=== PATIENT | female | born 1960 | race Caucasian/White ===

== ENCOUNTER 2016-08-20 19:56 | Inpatient (IN) ==
[2016-08-20] MEDS ORDERED: Vancomycin 1,000 MG VIAL IVPB ONE (20:18)
[2016-08-20] MEDS ORDERED: 0.9 % Sodium Chloride 1,000 ML IVC ONE (20:18)
[2016-08-20] MEDS ORDERED: Piperacillin/Tazobactam 4.5 GM in D5% in Water (Mini-Bag+) 100 ML IVPB ONE (20:18)
--- NOTE | 2016-08-20 20:47 | Emergency Department Note ---
Disposition Clinical Impression: Lower extremity edema Qualifiers: Laterality: left Qualified Code(s): R60.0 - Localized edema Fever Qualifiers: Fever type: unspecified Qualified Code(s): R50.9 - Fever, unspecified Cellulitis Qualifiers: Site of cellulitis: extremity Site of cellulitis of extremity: lower extremity Laterality: left Qualified Code(s): L03.116 - Cellulitis of left lower limb Sepsis Qualifiers: Sepsis type: sepsis due to unspecified organism Qualified Code(s): A41.9 - Sepsis, unspecified organism Disposition: Admitted As Inpatient Condition: Good Time of Disposition: 23:00 Extremity Problem HPI - General Chief complaint: ED Extremity Problem,Nontraumatic Stated complaint: Left Leg Cellulitis Time Seen by Provider: 08/20/16 20:05 Source: patient Mode of arrival: ambulatory Limitations: no limitations Nursing Notes Reviewed: Yes Vital Signs Reviewed: Yes - History of Present Illness HPI Narrative: Patient presents emergency room for evaluation left lower extremity swelling cellulitis and warmth. Patient noticed this over the last 24 hours. Patient had an ingrown toenail that she cut out 2 days ago. Symptoms developed this morning she denied any other issues prior to except for her feeling like she had an illness. Denies any other medical issues her symptoms this time. Denies any other issues except for diabetes. She has been seen by podiatry several times in the past for similar issue. She has never had no redness or swelling or ligamentous before. Denies any history of deep venous thrombosis at this time. She has had intermittent shortness of breath secondary to feeling. Denies chest pain fevers chills headache or vision change. No nausea vomiting or diarrhea Pt Subjective Complaint: extremity pain, extremity swelling Onset (ago): hour(s) Consistency: constant Injury Location: left, lower extremity Pain Scale: 8 Quality: aching Radiation: distal Improves with: nothing Worsens with: range of motion, weight bearing, walking, palpation Associated symptoms: Reports: shortness of breath, fever, myalgias - Related Data Home Medications Medication Instructions Recorded Confirmed Allopurinol [Zyloprim] 300 mg PO QAM 12/04/14 06/20/16 Metformin [Glucophage] 500 mg PO DAILY 12/04/14 06/20/16 Multivitamin [Multivitamins] 1 cap PO QAM 12/04/14 06/20/16 Ropinirole HCl [Requip] 4 mg PO HS 12/04/14 06/20/16 Ropinirole [Requip] 3 mg PO BID 12/04/14 06/20/16 Metoprolol XL (24 HR) Succ [Toprol 50 mg PO HS 01/03/16 06/20/16 Xl] SitaGLIPtin [Januvia] 100 mg PO DAILY 01/03/16 06/20/16 Gabapentin [Neurontin] 300 mg PO TID 03/21/16 06/20/16 Previous Rx's Medication Instructions Recorded Calcium/D3/Mag Ox/[employer]/Victor Manuel/Zn 2 each PO DAILY #60 tablet 06/20/16 [Caltrate+D3 Plus Mineral Minis] Cholecalciferol (D-3) [Vitamin D] 1,000 unit PO DAILY #90 tablet 06/20/16 Anastrozole [Arimidex] 1 mg PO DAILY #90 tablet 08/01/16 Allergies Allergy/AdvReac Type Severity Reaction Status Date / Time lorazepam [From Ativan] AdvReac Intermediate Agitated Verified 12/10/14 17:59 All systems ED: reviewed and negative except as stated. Constitutional: Reports: chills, weakness. Denies: fever Cardiovascular: Denies: chest pain, palpitations, dyspnea on exertion, orthopnea Respiratory: Denies: dyspnea, wheezes, hemoptysis Gastrointestinal: Denies: nausea, vomiting, diarrhea Genitourinary: Denies: dysuria, frequency Musculoskeletal: Reports: myalgia. Denies: back pain, neck pain Past Medical History - Past Medical History Attestation: Yes The following information was validated with the patient. Source: patient Medical history: Reports: cancer, CHF, coronary artery disease, diabetes, hyperlipidemia, hypertension, renal disease, thyroid disease, other Surgical history: Reports: breast surgery, sinus surgery, other Psychiatric history: Reports: anxiety, depression - Social History Smoking Status: Never smoker Smokeless Tobacco Status: No Alcohol use: Reports: none Drug use: Reports: none Physical Exam - General Limitations: no limitations General appearance: alert - Extremities Exam Extremities exam: Present: normal inspection, full ROM, tenderness, normal capillary refill, pedal edema (Left lower extremity pedal edema redness swelling and warmth. Tenderness to the calf warmth is radiating up into the mid thigh) - Back Exam Back exam: Present: normal inspection - Neurological Exam Neurological exam: Present: alert, oriented X3, CN II-XII intact, normal gait - Psychiatric Psychiatric exam: Present: normal affect, normal mood Course Course Narrative: Patient seen and examined the time of arrival. See history of present illness. 56-year-old female presents with toenail infection that is turned into cellulitis and left lower extremity. She has never had enteritis before. She is a diabetic. She has significant swelling redness and warmth to the left lower extremity up to the mid thigh. She has good palpable DP and PT pulses on my evaluation of symmetric bilateral. She has normal sensation. Capillary refill is appropriate and bilateral lower extremities. Concern is noted on initial presentation for possible vascular insufficiency. Venous Doppler ordered at this time for evaluation. Labs including cultures CRP and ESR CBC and chemistry were this time. She will be started on IV vancomycin and Zosyn for coverage of pseudomonal infection as well as An MRSA. Patient is otherwise stable. Disposition and treatment course. Fever noted on vital signs along with borderline tachycardia. EKG and troponin were also ordered. Patient will most likely require admission to the hospital for further evaluation and management. Will discuss concern for pulmonary emboli once DVT study is completed. Clinical evaluation is more consistent with cellular presentation fever and generalized illness. We will continue to monitor as patient stabilized. Provided this time. She does have a history of CHF so 30 mg/kg fluid boluses will not be given at this time. 1 L aliquots of used for symptom control and heart rate. Blood pressure stable in no acute bleeds or signs of decompensation this time. - Reevaluation(s) Reevaluation #1: Patient has a negative Doppler of the left lower extremity. No sign of deep venous thrombosis. No elevated white count at this time. Electrolytes appear to be stable potassium is 3.3. No need for acute intervention this time. Kidney function is slightly elevated but not significantly elevated from patient 's previous history. ESR is 80 there is concern for bony involvement at this time. X-rays also be ordered for evaluation of bone deterioration. Patient has been provided with antibiotics. Admission process to be completed at that point. Time: 22:07 Reevaluation #2: Patient has what appears to be clinical cellulitis of lower extremity. DVT study is negative. Reviewed the patient's presentation symptoms medical intervention with the hospitalist Dr. Ledesma. No other recommendations at this time except for the patient be placed on telemetry bed. Patient is stable resting comfortably in the bed no distress. Disposition pending workup and treatment course. Patient will be admitted at this time for further evaluation as an inpatient by the hospitalist for treatment course. We will continue monitoring in the emergency room to admission is completed Time: 22:57 Vital Signs Temperature 101.9 F H 08/20/16 19:57 Pulse Rate 106 08/20/16 19:57 Respiratory Rate 14 08/20/16 19:57 Blood Pressure 120/78 08/20/16 19:57 O2 Sat by Pulse Oximetry 100 08/20/16 19:57 Temperature 101.9 F H 08/20/16 19:57 Pulse Rate 105 08/20/16 21:31 Respiratory Rate 18 08/20/16 21:31 Blood Pressure 121/75 08/20/16 21:31 O2 Sat by Pulse Oximetry 97 08/20/16 21:31 Oxygen Delivery Oxygen Delivery Room Air Extremity Problem, Nontraumati - MDM Narrative Medical decision making narrative: Left lower extremity cellulitis - Medical Records Medical records reviewed: Yes I reviewed the patient's medical records. - Lab Data Lab results reviewed: Yes I reviewed the patient's lab results. Result diagrams: 08/20/16 20:55 08/20/16 20:55 Lab Results 08/20/16 08/20/16 08/20/16 Range/Units 20:55 20:55 20:55 WBC 10.4 (4.3-11.1) K/mcL RBC 4.23 (3.82-4.97) M/mcL Hgb 11.9 (11.5-15.4) g/dL Hct 36.9 (35.3-44.9) % MCV 87.2 (83.0-100.0) fL MCH 28.1 (28.0-33.3) pg MCHC 32.2 (31.6-35.5) g/dL RDW 16.8 H (11.5-14.5) % Plt Count 168 (140-400) K/mcL MPV 11.0 (9.4-12.4) fL Immature Gran % 0.7 (0-4) % Seg Neutrophils % 90.8 % Lymphocytes % 4.9 % Monocytes % 2.9 % Eosinophils % 0.4 % Basophils % 0.3 % Neutrophils # 9.5 H (1.6-8.9) K/mcL Lymphocytes # 0.5 L (0.6-4.6) K/mcL Monocytes # 0.3 (0.0-1.3) K/mcL Eosinophils # 0.0 (0.0-0.6) K/mcL Basophils # 0.0 (0.0-0.2) K/mcL ESR 80 H (0-15) mm/hr PT 13.4 H (9.4-12.1) Seconds INR 1.2 Sodium (136-145) mEq/L Potassium (3.5-4.5) mEq/L Chloride (98-109) mEq/L Carbon Dioxide (19-29) mEq/L BUN (7-20) mg/dL Creatinine (0.57-1.11) mg/dL Est GFR ( Amer) (> 60) Est GFR (Non-Af Amer) (> 60) BUN/Creatinine Ratio (6-26) Glucose (70-99) mg/dL Calculated Osmolality (280-300) Lactic Acid (0.5-2.2) mmol/L Calcium (8.6-10.8) mg/dL Troponin I (0-0.03) ng/mL 08/20/16 08/20/16 08/20/16 Range/Units 20:55 20:55 20:55 WBC (4.3-11.1) K/mcL RBC (3.82-4.97) M/mcL Hgb (11.5-15.4) g/dL Hct (35.3-44.9) % MCV (83.0-100.0) fL MCH (28.0-33.3) pg MCHC (31.6-35.5) g/dL RDW (11.5-14.5) % Plt Count (140-400) K/mcL MPV (9.4-12.4) fL Immature Gran % (0-4) % Seg Neutrophils % % Lymphocytes % % Monocytes % % Eosinophils % % Basophils % % Neutrophils # (1.6-8.9) K/mcL Lymphocytes # (0.6-4.6) K/mcL Monocytes # (0.0-1.3) K/mcL Eosinophils # (0.0-0.6) K/mcL Basophils # (0.0-0.2) K/mcL ESR (0-15) mm/hr PT (9.4-12.1) Seconds INR Sodium 136 (136-145) mEq/L Potassium 3.3 L (3.5-4.5) mEq/L Chloride 98 (98-109) mEq/L Carbon Dioxide 24 (19-29) mEq/L BUN 35 H (7-20) mg/dL Creatinine 1.23 H (0.57-1.11) mg/dL Est GFR ( Amer) 55 L (> 60) Est GFR (Non-Af Amer) 46 L (> 60) BUN/Creatinine Ratio 28 H (6-26) Glucose 107 H (70-99) mg/dL Calculated Osmolality 290 (280-300) Lactic Acid 2.8 H (0.5-2.2) mmol/L Calcium 10.2 (8.6-10.8) mg/dL Troponin I 0.00 (0-0.03) ng/mL - Radiology Data Radiology results reviewed: Yes I reviewed the patient's radiology results. - EKG Data EKG attestation: Yes I reviewed and interpreted this EKG. EKG shows normal: sinus rhythm, axis, intervals, QRS complexes, ST-T waves Rate: tachycardia Rhythm: NSR [place]/QRS: normal Q waves: III, aVF When compared to previous EKG there are: no significant changes Interpretation: no acute changes, unchanged when compared to prior tracing (date ) Attestation Statement - Attestation Attestation: I, Adriano Duarte MD, personally evaluated this patient and discussed their management with the resident physician. I reviewed the resident's note and agree with the documented findings, medical decision making, and plan of care. 56-year-old female presents to the emergency department with a complaint of pain and swelling and redness of the left lower leg which started this morning and is getting progressively worse throughout the day. She also has developed a fever. No increased cough or chest pain or shortness of breath. No palpitations. Patient had an ingrown toenail on the left big toe which she pulled out 2 days ago. Pain and redness and swelling around the left big toe also. On examination patient is a well-developed obese female in no acute distress. She is alert and oriented 3. There is no cyanosis or diaphoresis. Breath sounds are clear and equal bilaterally. Heart regular with a mild tachycardia. Abdomen is soft and nontender with normal bowel sounds. Patient has a large area of cellulitis to the left lower leg with erythema and moderate swelling. Markedly tender to palpation. Neurovascular function intact distally. Labs reviewed. Chest x-ray negative. Sinus tachycardia with no acute changes on EKG. X-ray of the left foot was negative. The hospitalist, Dr. Ledesma, was consulted and accepted admission of the patient.
[2016-08-20] MEDS ORDERED: D5% in Water 250 ML ONE (20:58)
[2016-08-20 21:07] LABS: Basophils % 0.3 %; Eosinophils % 0.4 %; Hematocrit 36.9 % (35.3-44.9); Hemoglobin 11.9 g/dL (11.5-15.4); Immature Granulocytes % 0.7 % (0-4); Lymphocytes # 0.5 K/mcL (0.6-4.6); Lymphocytes % 4.9 %; Mean Corpuscular HGB Conc 32.2 g/dL (31.6-35.5); Mean Corpuscular Hemoglobin 28.1 pg (28.0-33.3); Mean Corpuscular Volume 87.2 fL (83.0-100.0); Monocytes # 0.3 K/mcL (0.0-1.3); Monocytes % 2.9 %; Neutrophils # 9.5 K/mcL (1.6-8.9); Platelet Count 168 K/mcL (140-400); Red Blood Count 4.23 M/mcL (3.82-4.97); Red Cell Distribution Width 16.8 % (11.5-14.5); Segmented Neutrophils % 90.8 %
[2016-08-20 21:13] LABS: INR 1.2; Prothrombin Time 13.4 Seconds (9.4-12.1)
[2016-08-20 21:21] LABS: Calcium 10.2 mg/dL (8.6-10.8); Potassium 3.3 mEq/L (3.5-4.5)
[2016-08-21] MEDS ORDERED: *HR* Dextrose 50 % in Water (Syg) 50 ML SYRINGE IVP PRN (00:01)
[2016-08-21] MEDS ORDERED: *HR* Promethazine 25 MG/ML VIAL IVP PRN (00:01)
[2016-08-21] MEDS ORDERED: D5% in Water 1,000 ML IVC PRN (00:01)
[2016-08-21] MEDS ORDERED: Naloxone 0.4 MG/ML INJ IVP PRN (00:01)
[2016-08-21] MEDS ORDERED: Dextrose Gel 15 GM PO PRN ×2 (00:01)
[2016-08-21] MEDS ORDERED: *HR* Morphine 2 MG/ML SYRINGE IVP PRN (00:01)
--- NOTE | 2016-08-21 00:15 | Internal Med History&Physical ---
Date of Encounter: 08/20/16 Time of Encounter: 23:45 Assessment and Plan (1) Sepsis affecting skin Current visit: Yes Status: Acute . (2) Breast cancer Current visit: Yes Status: Chronic . Qualifiers: Breast location: unspecified site of breast Patient sex: female Laterality: unspecified laterality Qualified Code(s): C50.919 - Malignant neoplasm of unspecified site of unspecified female breast (3) Vitamin D deficiency Current visit: Yes Status: Chronic . (4) Gastroparesis Current visit: Yes Status: Chronic . (5) CKD stage 3 secondary to diabetes Current visit: Yes Status: Chronic . (6) DM (diabetes mellitus), type 2 with renal complications Current visit: Yes Status: Chronic . Qualifiers: Diabetes mellitus complication detail: with chronic kidney disease Diabetes mellitus oysterman insulin use: without oysterman use Chronic kidney disease stage: stage 3 (moderate) Qualified Code(s): E11.22 - Type 2 diabetes mellitus with diabetic chronic kidney disease; N18.3 - Chronic kidney disease, stage 3 (moderate) (7) THU (obstructive sleep apnea) Current visit: Yes Status: Suspected . (8) Cervical stenosis of spinal canal Current visit: Yes Status: Chronic . (9) Cervical myelopathy Current visit: Yes Status: Chronic . (10) SIRS (systemic inflammatory response syndrome) Current visit: Yes Status: Acute . (11) Cellulitis of left lower extremity Current visit: Yes Status: Acute . (12) Morbid obesity with BMI of 40.0-44.9, adult Current visit: Yes Status: Chronic . (13) Morbid (severe) obesity with alveolar hypoventilation Current visit: Yes Status: Chronic . (14) Post-mastectomy lymphedema syndrome Current visit: Yes Status: Chronic . (15) Status post mastectomy Current visit: Yes Status: Chronic . Qualifiers: Laterality: left Qualified Code(s): Z90.12 - Acquired absence of left breast and nipple Internal Medicine - H&P: HPI Chief complaint: Pain swelling and redness of left lower extremity Admitted From: Emergency Dept Plans for Post Hospital Care: Home History of present illness: Ms. Aggarwal is a 56 year old female with history significant for type II DM, DM polyneuropathy/gastroparesis, RLS, hypertension, dyslipidemia, osteoarthritis, gout, osteopenia/vitamin D deficiency, breast Ca sp mastectomy/adjuvant chemotherapy, CKD III, postmastectomy lymphedema, venous insuff, depression/ anxiety, THU?OHS, CAD/diastolicCHF, CARROLL, morbid obesity, nonsmoker, etc.. The patient was admitted to the [facility] via the Emergency Department when she presents with complaints of left leg pain swelling and redness. She reports that she was approximately 24 hours prior to presentation. She had an ingrown toenail that she cut out approximately 2 days prior to that. He did not immediately since any problems however over time apparently of the information was inserted into the leg from the toe. The patient does have a remote history of MRSA infection of skin which was associated with an episode of sepsis. She is a alp-dpvkpvf-ykslrldxk diabetic and reports reasonable control of her diabetes. She had been seen in the past by podiatry for previous episodes of diabetic foot wounds ulcerations and infections. Malaise with myalgias and weakness is present. Subjective fevers and chills also noted but not prominent. Denies headache dizziness syncopal or presyncopal complaints. Has experiences shortness of air and some periodic lightheadedness. Pain has been progressively worsening over the last 24 hours. She rates this as a constant distal aching 8/10 severity. Pain is aggravated with motion of the leg, attempted weightbearing or walking and palpation of the wounds. Nothing seems to ease pain once it is established. Venous Doppler analysis performed in the ED and was negative for DVT. Vital signs noted a temperature of 101.9. Pulse 100-106 respirations 18 BP 120/78. O2 saturation 100% on room air. WBC 10.4 hemoglobin 11.9 platelets 168,000. Differential showed in increase in neutrophils. Sedimentation rate 80. PT 13.4 INR 1.2. EKG normal sinus rhythm. Tachycardic rate. No acute ischemic changes. Portable chest x-ray demonstrated no acute or active cardiopulmonary process. Preliminary findings were consistent with SIRS/sepsis criteria present at admission. Source of infection relates to rapidly progressive left lower extremity cellulitis. Patient is a diabetic of many years duration with associated somatic effects. Her current stability is uncertain. She is acutely toxic. The patient presents risk for further clinical decline and morbidity given her any concerns and comorbid conditions. Workup and treatments will proceed comprehensively. The patient was visited and interviewed and examined. Laboratory and radiographic data base was reviewed and considered. Plan of care has been discussed in detail with the patient. Questions addressed. Consultative opinions will be sought as clinical circumstances justify. Initial consultative opinion has been requested of podiatry. Hospital course will be dependent upon clinical findings, treatment response and potential consultative interventions. Given the patient's presenting concerns, past medical history, clinical findings and symptoms, she is admitted at this time to undergo further evaluation and disposition. Orders were written as per the computerized physician border guard system. Condition is serious. Prognosis is guarded. CODE STATUS is full. Past Med Surg Social Fam HX - Past Medical History Source: old records reviewed Medical history: arthritis (DDD/DJD lumbar spine. scoliosis.), cancer, cardiomyopathy (History of hantavirus cardiopulmonary syndrome.), CHF ( diastolic dysfx.), COPD (THU.?OHS. Chronic sinusitis. Oral candidiasis.), coronary artery disease, diabetes, GERD, GI bleed (h/o C difficile inf/colitis.) , hyperlipidemia, hypertension, kidney stones, liver disease (Hepatomegaly with splenomegaly.), malignancy (Breast Ca.), osteoporosis (Vitamin D Def.), renal disease (CKD III. Neurogenic bladder.), thyroid disease (h/o nontoxic goiter. h/ o thyrotoxicosis. Hypothyroidism.), syncope, venous stasis, other (RLS. Cervical spinal stenosis/myelopathy. Gout/hyperuricemia. h/o MRSA inf. DM periph neuropathy. ) Psychiatric history: anxiety, depression, other - Past Surgical History Surgical History: breast surgery, cancer surgery, sinus surgery, other - Social History Smoking Status: Never smoker Smokeless Tobacco Status: No Alcohol use: none Drug use: none Occupational status: retired Current living situation: Home, With Family Activity Level: Independent ambulation, Mostly sedentary Recent Out of Country Travel Within the Last 8 Weeks: No Exposure or Possible Exposure to Illness During Travel: No - Family History Father Adopted: No Family Member Ethnicity: Non- Living Status: Hx Family Cardiac Disorders: Yes (MT @ 50yrs and 75) Hx Family Respiratory Disorders: No Hx Family Cancer: No Hx Family GI Disorders: No Hx Family Endocrine Disorder: Yes (kidney disease, dialysis) Hx Family Neuromuscular Disorders: No Hx Family Neurologic Disorders: Yes (STROKE) Hx Family HEENT Disorders: No Hx Family Autoimmune Disorders: No Mother Living Status: Still Living Hx Family Cardiac Disorders: No Hx Family Respiratory Disorders: No Hx Family Cancer: Yes (skin cancer) Hx Family GI Disorders: No Hx Family Endocrine Disorder: No Hx Family Neuromuscular Disorders: No Sister Living Status: Still Living Hx Family Cardiac Disorders: No Hx Family Respiratory Disorders: No Hx Family Cancer: Yes (breast) Hx Family GI Disorders: No Hx Family Endocrine Disorder: Yes (diabetes) Hx Family Neuromuscular Disorders: No Hx Family Neurologic Disorders: No Hx Family HEENT Disorders: No Hx Family Autoimmune Disorders: Yes (lupus) Internal Medicine - H&P: Meds Allopurinol [Zyloprim] 300 mg PO QAM 12/04/14 [History] Metformin [Glucophage] 500 mg PO DAILY 12/04/14 [History] Multivitamin [Multivitamins] 1 cap PO QAM 12/04/14 [History] Ropinirole HCl [Requip] 4 mg PO HS 12/04/14 [History] Ropinirole [Requip] 3 mg PO BID 12/04/14 [History] Metoprolol XL (24 HR) Succ [Toprol Xl] 50 mg PO HS 01/03/16 [History] SitaGLIPtin [Januvia] 100 mg PO DAILY 01/03/16 [History] Gabapentin [Neurontin] 300 mg PO TID 03/21/16 [History] Calcium/D3/Mag Ox/[employer]ic/Victor Manuel/Zn [Caltrate+D3 Plus Mineral Minis] 2 each PO DAILY # 60 tablet 06/20/16 [Rx] Cholecalciferol (D-3) [Vitamin D] 1,000 unit PO DAILY #90 tablet 06/20/16 [Rx] Anastrozole [Arimidex] 1 mg PO DAILY #90 tablet 08/01/16 [Rx] Allergies lorazepam [From Ativan] Adverse Reaction (Intermediate, Verified 12/10/14 17:59) Agitated All Systems PM: A 10-system review of systems was performed and is negative for pertinent findings except as documented above in the HPI. - Constitutional Constitutional: as per HPI, chills, fever(s), malaise, weakness, no night sweats - EENT Eyes: as per HPI, no change in vision, no discharge, no pain, no photophobia Ears: as per HPI, no ear discharge, no ear pain, no tinnitus Nose, mouth and throat: as per HPI, no dysphagia, no nasal discharge, no neck pain, no sore throat - Breasts Breasts: as per HPI, other - Cardiovascular Cardiovascular ROS IM: as per HPI, lightheadedness, palpitations, no chest pain , no diaphoresis, no dyspnea, no syncope - Respiratory Respiratory: as per HPI, other, no cough, no dyspnea, no wheezing, no excessive phlegm production - Gastrointestinal Gastrointestinal: as per HPI, other, no abdominal pain, no diarrhea, no hematemesis, no hematochezia, no melena, no nausea, no vomiting - Genitourinary Genitourinary: as per HPI, no change in urinary stream, no dysuria, no flank pain, no hematuria Menstruation: as per HPI - Musculoskeletal Musculoskeletal ROS IM: as per HPI, arthralgias, back pain, limited range of motion, myalgias, other, no numbness, no tingling - Integumentary Integumentary IM: as per HPI, erythema, rash, other, no non-healing lesions, no skin ulcer, no unusual bruising - Neurological Neurological ROS: as per HPI, no confusion, no convulsions, no focal weakness, no numbness, no tingling, no tremor(s) - Psychiatric Psychiatric: as per HPI - Endocrine Endocrine IM: as per HPI - Hematologic/Lymphatic Hematologic/Lymphatic: as per HPI, no easy bruising - Allergic/Immunologic Allergic/Immunologic: as per HPI - Constitutional Vitals: Temp Pulse Resp BP Pulse Ox 100.0 F H 110 22 102/72 95 08/20/16 23:16 08/20/16 23:16 08/20/16 23:16 08/20/16 23:16 08/20/16 23:16 Vital Signs Temp Pulse Resp BP Pulse Ox 08/20/16 23:16 100.0 F H 110 22 102/72 95 08/20/16 21:31 105 18 121/75 97 08/20/16 21:13 103 18 97 08/20/16 19:57 101.9 F H 106 14 120/78 100 Intake and Output 08/20/16 08/20/16 08/21/16 15:59 23:59 07:59 Intake Total 250 / 250 Balance 250 / 250 Intake: IV Fluids 250 / 250 Dextrose 5% 250 ML As . 250 / 250 R[address] .[facility] Rx#: [id number] Other: Weight 104.326 kg General appearance: Present: cooperative, mild distress, A&O X 3, morbidly obese , answers questions appropriately - Head Head exam: Present: atraumatic, normal inspection, normocephalic - Eye Eye exam: Present: EOMI, PERRL, conjuntiva pink, sclera anicteric Pupils: Present: normal accommodation, PERRL - ENT ENT exam: Present: mucous membranes moist, normal external ear exam, normal oropharynx - Neck Neck exam general surgery: Present: full ROM, supple, trachea midline. Absent: lymphadenopathy, nuchal rigidity - Respiratory Respiratory exam: Present: decreased breath sounds, CTAB. Absent: accessory muscle use, rales, rhonchi, wheezes - Cardiovascular Cardiovascular exam: Present: distant heart sounds, RRR, +S1, +S2, tachycardia. Absent: diastolic murmur, gallop, rubs, systolic murmur - GI/Abdominal GI/Abdominal exam: Present: diminished bowel sounds, distended, soft, no peritoneal signs. Absent: tenderness - Extremities Exam Extremities exam: Present: calf tenderness (Left lower leg marked edema erythema and tenderness associated with extensive cellulitis.), full ROM, pedal edema, warm, radial pulses palpable and symetrical. Absent: cyanotic, normal inspection - Expanded Lower Extremities Exam Lower Leg exam: Present: ecchymosis, erythema, swelling, tenderness. Absent: normal inspection, palpable cord Ankle exam: Present: erythema, swelling, tenderness. Absent: normal inspection Foot/Toe exam: Present: erythema, swelling, tenderness. Absent: normal inspection Neuro vascular tendon exam: Present: no vascular compromise, significant pain with passive ROM of distal joint. Absent: extremity cold to touch, pulse deficit, sensory deficit Gait: Present: not tested/not observed - Neurological Exam Neurological exam: Present: alert, altered, CN II-XII intact, oriented X3, no focal deficits. Absent: pronater drift, facial droop, speech deficit - Psychiatric Psychiatric exam: Present: anxious, normal affect, normal mood - Skin Skin exam: Present: dry, erythema, intact, rash, warm Internal Med - H&P Results - Labs CBC & Chem 7: 08/20/16 20:55 08/21/16 04:28 Labs: Short CBC 08/20/16 Range/Units 20:55 WBC 10.4 (4.3-11.1) K/mcL Hgb 11.9 (11.5-15.4) g/dL Hct 36.9 (35.3-44.9) % Plt Count 168 (140-400) K/mcL Neutrophils # 9.5 H (1.6-8.9) K/mcL BMP 08/20/16 Range/Units 20:55 Sodium 136 (136-145) mEq/L Potassium 3.3 L (3.5-4.5) mEq/L Chloride 98 (98-109) mEq/L Carbon Dioxide 24 (19-29) mEq/L BUN 35 H (7-20) mg/dL Creatinine 1.23 H (0.57-1.11) mg/dL Glucose 107 H (70-99) mg/dL Calcium 10.2 (8.6-10.8) mg/dL Cardiac Enzymes 08/20/16 Range/Units 20:55 Troponin I 0.00 (0-0.03) ng/mL Abnormal lab results RDW 16.8 % (11.5-14.5) H 08/20/16 20:55 Neutrophils # 9.5 K/mcL (1.6-8.9) H 08/20/16 20:55 Lymphocytes # 0.5 K/mcL (0.6-4.6) L 08/20/16 20:55 ESR 80 mm/hr (0-15) H 08/20/16 20:55 PT 13.4 Seconds (9.4-12.1) H 08/20/16 20:55 Potassium 3.3 mEq/L (3.5-4.5) L 08/20/16 20:55 BUN 35 mg/dL (7-20) H 08/20/16 20:55 Creatinine 1.23 mg/dL (0.57-1.11) H 08/20/16 20:55 Est GFR ( Amer) 55 (> 60) L 08/20/16 20:55 Est GFR (Non-Af Amer) 46 (> 60) L 08/20/16 20:55 BUN/Creatinine Ratio 28 (6-26) H 08/20/16 20:55 Glucose 107 mg/dL (70-99) H 08/20/16 20:55 Lactic Acid 2.8 mmol/L (0.5-2.2) H 08/20/16 20:55 Laboratory Results WBC 10.4 K/mcL (4.3-11.1) 08/20/16 20:55 RBC 4.23 M/mcL (3.82-4.97) 08/20/16 20:55 Hgb 11.9 g/dL (11.5-15.4) 08/20/16 20:55 Hct 36.9 % (35.3-44.9) 08/20/16 20:55 MCV 87.2 fL (83.0-100.0) 08/20/16 20:55 MCH 28.1 pg (28.0-33.3) 08/20/16 20:55 MCHC 32.2 g/dL (31.6-35.5) 08/20/16 20:55 RDW 16.8 % (11.5-14.5) H 08/20/16 20:55 Plt Count 168 K/mcL (140-400) 08/20/16 20:55 MPV 11.0 fL (9.4-12.4) 08/20/16 20:55 Immature Gran % 0.7 % (0-4) 08/20/16 20:55 Seg Neutrophils % 90.8 % 08/20/16 20:55 Lymphocytes % 4.9 % 08/20/16 20:55 Monocytes % 2.9 % 08/20/16 20:55 Eosinophils % 0.4 % 08/20/16 20:55 Basophils % 0.3 % 08/20/16 20:55 Neutrophils # 9.5 K/mcL (1.6-8.9) H 08/20/16 20:55 Lymphocytes # 0.5 K/mcL (0.6-4.6) L 08/20/16 20:55 Monocytes # 0.3 K/mcL (0.0-1.3) 08/20/16 20:55 Eosinophils # 0.0 K/mcL (0.0-0.6) 08/20/16 20:55 Basophils # 0.0 K/mcL (0.0-0.2) 08/20/16 20:55 ESR 80 mm/hr (0-15) H 08/20/16 20:55 PT 13.4 Seconds (9.4-12.1) H 08/20/16 20:55 INR 1.2 08/20/16 20:55 Sodium 136 mEq/L (136-145) 08/20/16 20:55 Potassium 3.3 mEq/L (3.5-4.5) L 08/20/16 20:55 Chloride 98 mEq/L (98-109) 08/20/16 20:55 Carbon Dioxide 24 mEq/L (19-29) 08/20/16 20:55 BUN 35 mg/dL (7-20) H 08/20/16 20:55 Creatinine 1.23 mg/dL (0.57-1.11) H 08/20/16 20:55 Est GFR ( Amer) 55 (> 60) L 08/20/16 20:55 Est GFR (Non-Af Amer) 46 (> 60) L 08/20/16 20:55 BUN/Creatinine Ratio 28 (6-26) H 08/20/16 20:55 Glucose 107 mg/dL (70-99) H 08/20/16 20:55 Calculated Osmolality 290 (280-300) 08/20/16 20:55 Lactic Acid 2.8 mmol/L (0.5-2.2) H 08/20/16 20:55 Calcium 10.2 mg/dL (8.6-10.8) 08/20/16 20:55 Troponin I 0.00 ng/mL (0-0.03) 08/20/16 20:55 Impressions Chest X-Ray 08/20/16 20:19 IMPRESSION: No acute cardiopulmonary process identified. D/ / Sean Mullins MD / Sean Mullins MD Interpreting Provider: Sean Mullins MD Foot X-Ray 08/20/16 22:06 IMPRESSION: No radiographic evidence of osteomyelitis. If there is clinical concern for bone infection, recommend MRI or bone scan for further evaluation. D/ / Tristan Lopez MD / Tristan Lopez MD Interpreting Provider: Tristan Lopez MD
[2016-08-21] MEDS: Melatonin 3 MG TABLET PO SCH ×2 (00:44→21:22)
[2016-08-21] MEDS: rOPINIRole 1 MG TABLET PO SCH ×2 (00:45→21:22)
[2016-08-21] MEDS: 0.9 % Sodium Chloride 1,000 ML IVC SCH ×2 (00:45→22:28)
[2016-08-21] MEDS: Insulin DETEMIR 100 UNIT/ML X5UNITS SQ SCH ×2 (00:53→21:22)
[2016-08-21] MEDS ORDERED: Vancomycin 1,500 MG in D5% in Water 250 ML IVPB SCH (01:00)
[2016-08-21] MEDS ORDERED: Potassium Chloride Elixir 20 MEQ/15 ML UDC PO STA (03:02)
[2016-08-21 04:39] LABS: VBG HCO3 23.6 mEq/L (21-27); VBG PH 7.45 pH Units (7.32-7.42)
[2016-08-21 04:54] LABS: Alanine Aminotransferase 25 Units/L (0-55); Albumin 2.9 g/dL (3.5-5.0); Albumin/Globulin Ratio 0.9 (1.1-2.2); Alkaline Phosphatase 57 Units/L (38-126); Aspartate Amino Transferase 19 Units/L (5-34); BUN/Creatinine Ratio 28 (6-26); Bilirubin,Total 0.7 mg/dL (0.2-1.2); Blood Urea Nitrogen 29 mg/dL (7-20); Calcium 9.1 mg/dL (8.6-10.8); Carbon Dioxide 23 mEq/L (19-29); Chloride 104 mEq/L (98-109); Globulin 3.2 g/dL (2.4-3.5); Glucose 134 mg/dL (70-99); Hemoglobin A1C 5.1 %; Osmolality,Calculated 290 (280-300); Potassium 3.2 mEq/L (3.5-4.5); Sodium 136 mEq/L (136-145); Total Protein 6.1 g/dL (6.0-8.3); eGFR For African Americans > 60 (> 60); eGFR For Non-African Americans 56 (> 60)
[2016-08-21 05:01] LABS: Magnesium 1.6 mg/dL (1.6-2.6); Phosphorous 2.8 mg/dL (2.3-4.7)
[2016-08-21] MEDS: *HR* Enoxaparin 40 MG/0.4 ML SYRINGE SQ SCH (05:45)
[2016-08-21 05:48] LABS: Thyroid Stimulating Hormone 1.415 mcIU/mL (0.350-4.840)
[2016-08-21] MEDS: Insulin LISPRO 300 UNITS/3 ML VIAL SQ SCH ×4 (07:30→21:17)
[2016-08-21] MEDS: Piperacillin/Tazobactam 3.375 GM in D5% in Water (Mini-Bag+) 100 ML IVPB SCH ×2 (07:51→16:18)
[2016-08-21] MEDS: Anastrozole 1 MG TABLET PO SCH (07:53)
[2016-08-21] MEDS: Gabapentin 300 MG CAPSULE PO SCH ×3 (07:54→21:22)
--- NOTE | 2016-08-21 10:38 | Internal Med Progress Note ---
Date of Encounter: 08/21/16 Time of Encounter: 09:45 - Assessment and plan (1) Cellulitis of left lower extremity Current Visit: Yes Status: Acute Assessment and plan: Continue current antibiotics. Patient is responding well. Left leg elevation. Moderate risk for complications. (2) CKD stage 3 secondary to diabetes Current Visit: Yes Status: Chronic Assessment and plan: Renal function improved. We will continue to follow. Dose antibiotics recently. (3) DM (diabetes mellitus), type 2 with renal complications Current Visit: Yes Status: Chronic Assessment and plan: Blood sugars are well-controlled. Continue to monitor and continue current insulin regimen. Qualifiers: Diabetes mellitus complication detail: with chronic kidney disease Diabetes mellitus retirement insulin use: without retirement use Chronic kidney disease stage: stage 3 (moderate) Qualified Code(s): E11.22 - Type 2 diabetes mellitus with diabetic chronic kidney disease; N18.3 - Chronic kidney disease, stage 3 (moderate) (4) Sepsis affecting skin Current Visit: Yes Status: Acute Assessment and plan: Improving - Subjective Interval history: Patient feels just about the same as yesterday. However the swelling and redness in her left leg is slightly improved. No nausea or vomiting. No adverse reaction to antibiotics. No fever or chills or night sweats reported overnight. - Constitutional Vitals: Temp Pulse Resp BP Pulse Ox 98.5 F 70 16 88/48 97 08/21/16 07:39 08/21/16 07:39 08/21/16 07:39 08/21/16 07:39 08/21/16 07:39 General appearance: Present: cooperative, mild distress, A&O X 3, morbidly obese , answers questions appropriately - Respiratory Respiratory exam: Present: CTAB. Absent: accessory muscle use, rales, rhonchi, wheezes - Cardiovascular Cardiovascular exam: Present: RRR, +S1, +S2. Absent: diastolic murmur, gallop, rubs, systolic murmur - GI/Abdominal GI/Abdominal exam: Present: normal bowel sounds, soft, no peritoneal signs. Absent: distended, tenderness - Extremities Exam Extremities exam: Present: warm, radial pulses palpable and symetrical. Absent : calf tenderness, cyanotic, pedal edema Additional comments: Erythema and swelling involving the left lower leg circumferentially. This appears to be slightly improved based on patient's history - Neurological Exam Neurological exam: Present: alert, oriented X3, no focal deficits. Absent: facial droop, speech deficit - Skin Skin exam: Present: dry, intact Internal Medicine: Result - Labs CBC & Chem 7: 08/20/16 20:55 08/21/16 04:28 Labs: BMP 08/21/16 04:28 Sodium 136 Potassium 3.2 L Chloride 104 Carbon Dioxide 23 BUN 29 H Creatinine 1.02 Glucose 134 H Calcium 9.1 Liver Function 08/21/16 Range/Units 04:28 Total Bilirubin 0.7 (0.2-1.2) mg/dL AST 19 (5-34) Units/L ALT 25 (0-55) Units/L Alkaline Phosphatase 57 (38-126) Units/L Albumin 2.9 L (3.5-5.0) g/dL - ABG Interpretation ABG results: PT/INR, D-dimer PT 13.4 Seconds (9.4-12.1) H 08/20/16 20:55 Consult Discharge Plan - Plan Referrals: Ace Knowles DO [Primary Care Provider] - - Attending Attestation This document has been at least partially created by Jumio recognition technology by Dr. Ulloa. Errors in grammar, wording or other phrases may exist. If errors are found after the documentation is signed, they will be addressed individually in the addendum section of this document when appropriate.
[2016-08-21] MEDS: Vancomycin 1,500 MG in D5% in Water 250 ML IVPB SCH (11:32)
[2016-08-21 13:14] LABS: Bilirubin,Urine Negative (Negative); Blood,Urine Negative (Negative); Clarity,Urine Clear (Clear); Color,Urine Yellow (Yellow); Glucose,Urine (UA) Normal (Normal); Ketones,Urine Negative (Negative); Leukocyte Esterase,Urine Small (Negative); Nitrite,Urine Negative (Negative); Protein,Urine 30 mg/dL (Neg-Trace); Specific Gravity,Urine 1.029 (1.010-1.025); Urobilinogen,Urine Normal (Normal)
[2016-08-21 13:17] LABS: Bacteria,Urine None Seen per hpf (None-Few); Hyaline Casts,Urine None Seen per lpf (None-Few); Squamous Epithelial Cell,Urine Many per lpf (None-Few)
[2016-08-21] MEDS ORDERED: Vancomycin 1,750 MG in D5% in Water 500 ML IVPB SCH (14:00)
--- NOTE | 2016-08-21 14:18 | Venous Imaging Report ---
LE Venous Duplex Patient Name:Jailene Aggarwal Order Number:[id number] Procedure Date:08/20/2016 Date:1960ge:56 yrs Gender:Female Location:[facility] ED Room #: ER 4 Event Marketing Specialist:Juliet Liz RDCS, AMER[place] Referring MD:Dale Grider DO senior merchandiser:Minh Knowles DO Reading MD:Tom Schofield MD Primary Indications:Swelling, Redness Secondary Indications: Risk Factors Yes/No Hx of Chemotherapy Yes Impressions: Normal left lower extremity deep and superficial venous exam. Recommendations: Test completed on 08/20/2016 at 9:57:33 pm. Critical findings reported to Dr. Grider in person at 9:57:35 pm on 08/20/2016 by Juliet Liz RDCS, RVT. Lower Extremity Venous Duplex Side Vein Compress Spontaneous Flow Augment Diameter (cm) Depth (cm) Left Distal Iliac Normal Yes Phasic Yes Left Common Femoral Normal Yes Phasic Yes Left Superficial Femoral Normal Yes Phasic Yes Left Popliteal Normal Yes Phasic Yes Left Posterior Tibial Normal Yes Phasic Yes Left Peroneal Normal Yes Phasic Yes Left Great [place]aphenous Normal Yes Phasic Yes Left Lesser Saphenous Normal Yes Phasic Yes Updated by Tom Schofield MD on 08/21/2016 2:11:27 PM electronically signed on 08/21/2016 2:12:11 PM with status of Final
[2016-08-21] MEDS: *HR* OxyCODONE Immed Rel 5 MG TABLET PO PRN (16:16)
[2016-08-21] MEDS: Metoprolol XL (24 HR) Succ 50 MG TAB.ER.24H PO SCH (21:22)
[2016-08-22] MEDS: Vancomycin 1,500 MG in D5% in Water 250 ML IVPB SCH ×2 (00:24→11:40)
[2016-08-22] MEDS: Piperacillin/Tazobactam 3.375 GM in D5% in Water (Mini-Bag+) 100 ML IVPB SCH ×3 (00:25→16:25)
[2016-08-22] MEDS: *HR* Enoxaparin 40 MG/0.4 ML SYRINGE SQ SCH (05:35)
--- NOTE | 2016-08-22 06:35 | Electrocardiograph Report ---
[address] [place] [address] Test Date: 2016-08-20 Pat Name: Jailene Aggarwal Department: 104 Room: 3A24 Gender: F [employer] Consultant: [facility] : 1960 Requested By: Dale Grider Order Number: [id number] Reading MD: Tha Nassar MD Measurements Intervals [place] Rate: 102 P: 35 [place]: 170 QRS: -14 QRSD: 93 T: 81 QT: 322 QTc: 381 Interpretive Statements SINUS TACHYCARDIA LEFT ATRIAL ENLARGEMENT LEFT VENTRICULAR HYPERTROPHY AND ST-T CHANGE POSSIBLE ANTERIOR MYOCARDIAL INFARCTION, OF INDETERMINATE AGE INFERIOR MYOCARDIAL INFARCTION, PROBABLY OLD Electronically Signed On 08-22-2016 6:33:01 EDT by Tha Nassar MD
[2016-08-22] MEDS: Insulin LISPRO 300 UNITS/3 ML VIAL SQ SCH ×4 (08:03→20:44)
[2016-08-22] MEDS: Anastrozole 1 MG TABLET PO SCH (08:06)
[2016-08-22] MEDS: Gabapentin 300 MG CAPSULE PO SCH ×3 (08:06→20:37)
[2016-08-22] MEDS: Acetaminophen 325 MG TABLET PO PRN ×2 (08:07→16:24)
[2016-08-22] MEDS ORDERED: Aminoglycoside Consult 1 EACH MC ONE (08:37)
[2016-08-22 09:53] LABS: Basophils % 0.4 %; Eosinophils # 0.1 K/mcL (0.0-0.6); Eosinophils % 1.3 %; Hematocrit 29.4 % (35.3-44.9); Immature Granulocytes % 0.6 % (0-4); Lymphocytes # 0.8 K/mcL (0.6-4.6); Lymphocytes % 11.6 %; Mean Corpuscular HGB Conc 32.7 g/dL (31.6-35.5); Mean Corpuscular Hemoglobin 28.8 pg (28.0-33.3); Mean Corpuscular Volume 88.3 fL (83.0-100.0); Mean Platelet Volume 10.5 fL (9.4-12.4); Monocytes # 0.4 K/mcL (0.0-1.3); Monocytes % 6.4 %; Neutrophils # 5.5 K/mcL (1.6-8.9); Platelet Count 128 K/mcL (140-400); Red Blood Count 3.33 M/mcL (3.82-4.97); Red Cell Distribution Width 16.8 % (11.5-14.5); Segmented Neutrophils % 79.7 %
[2016-08-22 09:54] LABS: Hemoglobin 9.6 g/dL (11.5-15.4)
[2016-08-22 10:33] LABS: BUN/Creatinine Ratio 19 (6-26); Blood Urea Nitrogen 15 mg/dL (7-20); Calcium 8.8 mg/dL (8.6-10.8); Carbon Dioxide 22 mEq/L (19-29); Chloride 108 mEq/L (98-109); Glucose 119 mg/dL (70-99); Osmolality,Calculated 284 (280-300); Sodium 136 mEq/L (136-145); eGFR For African Americans > 60 (> 60); eGFR For Non-African Americans > 60 (> 60)
--- NOTE | 2016-08-22 18:37 | Internal Med Progress Note ---
Date of Encounter: 08/22/16 Time of Encounter: 15:30 - Assessment and plan (1) Sepsis Current Visit: Yes Status: Acute Assessment and plan: Secondary to left lower extremity cellulitis. Patient presented with fever, tachycardia, source of infection. Continue IV antibiotics. Improving fever. Qualifiers: Sepsis type: sepsis due to unspecified organism Qualified Code(s): A41.9 - Sepsis, unspecified organism (2) Cellulitis Current Visit: Yes Status: Acute Assessment and plan: Left lower extremity cellulitis, likely secondary to infected/ingrown left great toe nail. Blood and urine cultures remain negative so far. Will change antibiotics to IV doxycycline and Unasyn. Left leg elevation and supportive care. Venous Doppler of left leg shows no evidence of DVT. Qualifiers: Site of cellulitis: extremity Site of cellulitis of extremity: lower extremity Laterality: left Qualified Code(s): L03.116 - Cellulitis of left lower limb (3) CKD stage 3 secondary to diabetes Current Visit: Yes Status: Chronic Assessment and plan: Serum creatinine at baseline. Avoid nephrotoxic agents and dose medications according to current creatinine clearance. (4) DM (diabetes mellitus), type 2 with renal complications Current Visit: Yes Status: Chronic Assessment and plan: Continue Accu-Chek blood glucose monitoring with sliding scale insulin. Diabetic diet. 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 Slightly improved left leg swelling. Had low-grade fever last night. - Constitutional Vitals: Temp Pulse Resp BP Pulse Ox 98.0 F 70 16 111/71 99 08/22/16 16:00 08/22/16 16:00 08/22/16 16:00 08/22/16 16:00 08/22/16 16:00 General appearance: Present: cooperative, A&O X 3, morbidly obese, answers questions appropriately - Respiratory Respiratory exam: Present: CTAB. Absent: accessory muscle use, rales, rhonchi, wheezes - Cardiovascular Cardiovascular exam: Present: RRR, +S1, +S2. Absent: diastolic murmur, gallop, rubs, systolic murmur - GI/Abdominal GI/Abdominal exam: Present: normal bowel sounds, soft, no peritoneal signs. Absent: distended, tenderness - Extremities Exam Extremities exam: Present: full ROM, warm, radial pulses palpable and symetrical. Absent: calf tenderness, cyanotic, pedal edema Additional comments: Left leg with diffuse edema, intense blanchable erythema over anterolateral and anteromedial leg, slightly tender, warm, no open ulcers. Internal Medicine: Result - Labs CBC & Chem 7: 08/22/16 09:45 08/22/16 09:45 Labs: Short CBC 08/22/16 Range/Units 09:45 WBC 6.9 (4.3-11.1) K/mcL Hgb 9.6 L D (11.5-15.4) g/dL Hct 29.4 L (35.3-44.9) % Plt Count 128 L (140-400) K/mcL Neutrophils # 5.5 (1.6-8.9) K/mcL BMP 08/22/16 09:45 Sodium 136 Potassium 4.0 Chloride 108 Carbon Dioxide 22 BUN 15 D Creatinine 0.80 Glucose 119 H Calcium 8.8 - ABG Interpretation ABG results: PT/INR, D-dimer PT 13.4 Seconds (9.4-12.1) H 08/20/16 20:55 Consult Discharge Plan - Plan Referrals: Ace Knowles DO [Primary Care Provider] -
[2016-08-22] MEDS: Insulin DETEMIR 100 UNIT/ML X5UNITS SQ SCH (20:37)
[2016-08-22] MEDS: rOPINIRole 1 MG TABLET PO SCH (20:37)
[2016-08-22] MEDS: Metoprolol XL (24 HR) Succ 50 MG TAB.ER.24H PO SCH (20:37)
[2016-08-22] MEDS: Melatonin 3 MG TABLET PO SCH (20:37)
[2016-08-22] MEDS: *HR* OxyCODONE Immed Rel 5 MG TABLET PO PRN (23:28)
[2016-08-22] MEDS: Ampicillin/Sulbactam 3,000 MG in 0.9 % Sodium Chloride Mini Bag 100 ML IVPB SCH (23:28)
[2016-08-23] MEDS: Doxycycline 100 MG in 0.9 % Sodium Chloride Mini Bag 100 ML IVPB SCH ×2 (05:17→18:34)
[2016-08-23] MEDS: Ampicillin/Sulbactam 3,000 MG in 0.9 % Sodium Chloride Mini Bag 100 ML IVPB SCH ×3 (06:32→18:02)
[2016-08-23] MEDS: *HR* Enoxaparin 40 MG/0.4 ML SYRINGE SQ SCH (06:32)
[2016-08-23] MEDS: Insulin LISPRO 300 UNITS/3 ML VIAL SQ SCH ×4 (08:06→20:41)
[2016-08-23] MEDS: Gabapentin 300 MG CAPSULE PO SCH ×3 (08:10→20:40)
[2016-08-23] MEDS: Anastrozole 1 MG TABLET PO SCH (08:10)
--- NOTE | 2016-08-23 17:30 | Internal Med Progress Note ---
Date of Encounter: 08/23/16 Time of Encounter: 13:00 - Assessment and plan (1) Sepsis Current Visit: Yes Status: Acute Assessment and plan: Secondary to left lower extremity cellulitis. Patient presented with fever, tachycardia, source of infection. Improved fever. Continue IV antibiotics. Qualifiers: Sepsis type: sepsis due to unspecified organism Qualified Code(s): A41.9 - Sepsis, unspecified organism (2) Cellulitis Current Visit: Yes Status: Acute Assessment and plan: Left lower extremity cellulitis, likely secondary to infected/ingrown left great toe nail. Blood and urine cultures remain negative so far. Continue IV doxycycline and Unasyn. Anticipate discharge in a.m. if remains stable. Left leg elevation and supportive care. Venous Doppler of left leg shows no evidence of DVT. Qualifiers: Site of cellulitis: extremity Site of cellulitis of extremity: lower extremity Laterality: left Qualified Code(s): L03.116 - Cellulitis of left lower limb (3) CKD stage 3 secondary to diabetes Current Visit: Yes Status: Chronic (4) DM (diabetes mellitus), type 2 with renal complications Current Visit: Yes Status: Chronic Assessment and plan: Continue Accu-Chek blood glucose monitoring with sliding scale insulin. Diabetic diet. 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 Improving left leg pain and swelling, redness has improved. No nausea, vomiting or shortness of breath. - Constitutional Vitals: Temp Pulse Resp BP Pulse Ox 97.6 F 73 20 125/80 98 08/23/16 14:13 08/23/16 14:13 08/23/16 14:13 08/23/16 14:13 08/23/16 14:13 General appearance: Present: cooperative, A&O X 3, morbidly obese, answers questions appropriately - Respiratory Respiratory exam: Present: CTAB. Absent: accessory muscle use, rales, rhonchi, wheezes - Cardiovascular Cardiovascular exam: Present: RRR, +S1, +S2. Absent: diastolic murmur, gallop, rubs, systolic murmur - Extremities Exam Extremities exam: Present: pedal edema (Left lower extremity), warm, radial pulses palpable and symetrical. Absent: calf tenderness, cyanotic Additional comments: Left anterior leg with improving erythema, now dusky. Slightly improved edema and much improved tenderness and warmth. Internal Medicine: Result - Labs CBC & Chem 7: 08/22/16 09:45 08/22/16 09:45 - ABG Interpretation ABG results: PT/INR, D-dimer PT 13.4 Seconds (9.4-12.1) H 08/20/16 20:55 Consult Discharge Plan - Plan Referrals: Ace Knowles DO [Primary Care Provider] -
[2016-08-23] MEDS: rOPINIRole 1 MG TABLET PO SCH (20:40)
[2016-08-23] MEDS: Metoprolol XL (24 HR) Succ 50 MG TAB.ER.24H PO SCH (20:40)
[2016-08-23] MEDS: Insulin DETEMIR 100 UNIT/ML X5UNITS SQ SCH (20:40)
[2016-08-23] MEDS: Melatonin 3 MG TABLET PO SCH (20:40)
[2016-08-24] MEDS: Ampicillin/Sulbactam 3,000 MG in 0.9 % Sodium Chloride Mini Bag 100 ML IVPB SCH ×3 (00:01→12:39)
[2016-08-24] MEDS: Doxycycline 100 MG in 0.9 % Sodium Chloride Mini Bag 100 ML IVPB SCH (05:12)
[2016-08-24] MEDS: *HR* Enoxaparin 40 MG/0.4 ML SYRINGE SQ SCH (05:12)
[2016-08-24] MEDS: Insulin LISPRO 300 UNITS/3 ML VIAL SQ SCH ×2 (07:47→12:22)
[2016-08-24] MEDS: Anastrozole 1 MG TABLET PO SCH (07:49)
[2016-08-24] MEDS: Gabapentin 300 MG CAPSULE PO SCH (07:49)
[2016-08-24 11:01] VITALS: BP 143/86
--- NOTE | 2016-08-24 12:48 | Discharge Summary ---
Date of Encounter: 08/24/16 Time of Encounter: 12:45 - Discharge Diagnosis (1) Sepsis Priority: Primary Status: Acute Qualifiers: Sepsis type: sepsis due to unspecified organism Qualified Code(s): A41.9 - Sepsis, unspecified organism (2) Cellulitis Priority: Primary Status: Acute Qualifiers: Site of cellulitis: extremity Site of cellulitis of extremity: lower extremity Laterality: left Qualified Code(s): L03.116 - Cellulitis of left lower limb (3) CKD stage 3 secondary to diabetes Priority: Secondary Status: Chronic (4) DM (diabetes mellitus), type 2 with renal complications Priority: Secondary Status: Chronic Qualifiers: Diabetes mellitus complication detail: with chronic kidney disease 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 insulin 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: without correction use Chronic kidney disease stage: stage 3 (moderate) Qualified Code(s): E11.22 - Type 2 diabetes mellitus with diabetic chronic kidney disease; N18.3 - Chronic kidney disease, stage 3 (moderate) (5) THU (obstructive sleep apnea) Priority: Secondary Status: Suspected - Discharge Medications Prescriptions: Amoxicillin/Clavulanate [Augmentin] 500 mg PO BIDWM #14 tablet Doxycycline 100 mg PO BID #14 capsule Home Medications: Allopurinol [Zyloprim] 300 mg PO QAM 12/04/14 [History] Metformin [Glucophage] 1,000 mg PO BID 12/04/14 [History] Multivitamin [Multivitamins] 1 cap PO QAM 12/04/14 [History] Ropinirole HCl [Requip] 4 mg PO HS 12/04/14 [History] Ropinirole [Requip] 3 mg PO BID 12/04/14 [History] Metoprolol XL (24 HR) Succ [Toprol Xl] 50 mg PO HS 01/03/16 [History] SitaGLIPtin [Januvia] 100 mg PO DAILY 01/03/16 [History] Gabapentin [Neurontin] 300 mg PO TID 03/21/16 [History] Calcium/D3/Mag Ox/[employer]er [employer]ies/[place]/Zn [Caltrate+D3 Plus Mineral Minis] 2 each PO DAILY # 60 tablet 06/20/16 [Rx] Cholecalciferol (D-3) [Vitamin D] 1,000 unit PO DAILY #90 tablet 06/20/16 [Rx] Anastrozole [Arimidex] 1 mg PO DAILY #90 tablet 08/01/16 [Rx] Aspirin 81 mg PO DAILY 08/21/16 [History] Ferrous Sulfate [Iron] 325 mg PO DAILY 08/21/16 [History] Furosemide [Lasix] 40 mg PO DAILY 08/21/16 [History] Amoxicillin/Clavulanate [Augmentin] 500 mg PO BIDWM #14 tablet 08/24/16 [Rx] Doxycycline 100 mg PO BID #14 capsule 08/24/16 [Rx] Allergies/Adverse Reactions: Allergies lorazepam [From Ativan] Adverse Reaction (Intermediate, Verified 12/10/14 17:59) Agitated Date of admission: 08/21/16 13:27 Primary care physician: Ace Knowles Discharging clinician: Denise Wise Anticipated date of discharge: 08/24/16 - Patient Status Disposition: Home, Self-Care Condition: Good Functional capacity at discharge: independent ambulation Overall status at discharge: patient is progressing back to baseline - Discharge Instructions Instructions: Cellulitis (DC), Cellulitis (GEN) Follow Up With: Tenisha Landers CNP [Advanced Practice Nurse] - 08/28/16 1:30 pm - Diet and Activity Activity: resume usual activities as tolerated Diet: diabetic diet, low fat, low cholesterol, low salt diet Hospital course: Ms. Aggarwal is a 56 year old female admitted with left lower extremity redness and swelling. Patient was noted to have cellulitis with significant edema, erythema and tenderness in left leg. Venous Doppler of left lower extremity showed no evidence of acute DVT. She also presented with fever and tachycardia , which gradually improved with IV hydration and antibiotics. Blood cultures remain negative. Patient was started on IV vancomycin and Zosyn initially, which was later changed to IV doxycycline and Unasyn with significant improvement in left leg redness and pain and swelling. Patient is doing well today and is medically stable for discharge with oral antibiotics, she is encouraged to follow up with her primary care provider and she verbalized understanding. - Time Spent with Patient Total time spent providing and/or coordinating discharge services: Greater than 30 minutes (45 min) - Constitutional Vitals: Temp Pulse Resp BP Pulse Ox 98.1 F 61 16 143/86 100 08/24/16 10:54 08/24/16 10:54 08/24/16 10:54 08/24/16 10:54 08/24/16 10:54 General appearance: Present: cooperative, A&O X 3, morbidly obese, answers questions appropriately - Cardiovascular Cardiovascular exam: Present: RRR, +S1, +S2. Absent: diastolic murmur, gallop, rubs, systolic murmur - Extremities Exam Extremities exam: Present: pedal edema (improving left LE edema), warm, radial pulses palpable and symetrical. Absent: calf tenderness, cyanotic Additional comments: resolved warmth, tenderness and erythema over left leg; improving edema;
== END 2016-08-24 14:38 | disposition home or self-care (01) | DRG 872 ==
LOC: EMEROO 19:56 → 3ANU 19:56 → SUATTDRO 23:03 → 3ANU 08-21 00:19 → SUATTDRO 08-21 13:27
PROVIDERS: ADMIT Internal Medicine; ATTEND Internal Medicine

== ENCOUNTER 2017-02-09 17:11 | Inpatient (IN) ==
[2017-02-09] MEDS ORDERED: Piperacillin/Tazobactam 3.375 GM in D5% in Water (Mini-Bag+) 100 ML IVPB ONE (17:48)
[2017-02-09] MEDS ORDERED: Vancomycin 1,750 MG in D5% in Water 250 ML IVPB ONE (17:48)
--- NOTE | 2017-02-09 17:48 | Emergency Department Note ---
Disposition Clinical Impression: Sepsis, Cellulitis of left lower extremity, Lactic acidosis Disposition: Admitted As Inpatient Condition: Undetermined General Adult HPI - General Chief complaint: ED Fever Stated complaint: Fever Time Seen by Provider: 02/09/17 17:40 Source: patient, family Limitations: no limitations - History of Present Illness Pain Scale: 9 - Related Data Home Medications Medication Instructions Recorded Confirmed Metformin [Glucophage] 1,000 mg PO BID 12/04/14 02/09/17 Multivitamin [Multivitamins] 1 cap PO QAM 12/04/14 02/09/17 Ropinirole [Requip] 3 mg PO BID 12/04/14 02/09/17 Metoprolol XL (24 HR) Succ [Toprol 50 mg PO HS 01/03/16 02/09/17 Xl] SitaGLIPtin [Januvia] 100 mg PO DAILY 01/03/16 02/09/17 Gabapentin [Neurontin] 300 mg PO BID 03/21/16 02/09/17 Aspirin 81 mg PO DAILY 08/21/16 02/09/17 Furosemide [Lasix] 40 mg PO DAILY 08/21/16 02/09/17 Loratadine [Claritin] 10 mg PO DAILY 10/20/16 02/09/17 Gabapentin [Neurontin] 600 mg PO HS 01/19/17 02/09/17 Allopurinol [Zyloprim] 300 mg PO DAILY 02/09/17 02/09/17 Ezetimibe [Zetia] 10 mg PO DAILY 02/09/17 02/09/17 Potassium Chloride [K-Tab ER] 20 meq PO DAILY 02/09/17 02/09/17 Ropinirole HCl [Requip] 5 mg PO HS 02/09/17 02/09/17 Tramadol HCl [Ultram] 50 mg PO TID PRN 02/09/17 02/09/17 Previous Rx's Medication Instructions Recorded Calcium/D3/Mag Ox/Ornamental Painter/[place]/Zn 2 each PO DAILY #60 tablet 06/20/16 [Caltrate+D3 Plus Mineral Minis] Cholecalciferol (D-3) [Vitamin D] 1,000 unit PO DAILY #90 tablet 06/20/16 Anastrozole [Arimidex] 1 mg PO DAILY #90 tablet 10/23/16 Allergies Allergy/AdvReac Type Severity Reaction Status Date / Time lorazepam [From Ativan] AdvReac Intermediate Agitated Verified 05/24/17 11:13 Oxycodone AdvReac Confusion Verified 02/09/17 20:15 Past Medical History - Past Medical History Medical history: Reports: arthritis, cancer, cardiomyopathy, CHF, COPD, coronary artery disease, diabetes, GERD, GI bleed, hyperlipidemia, hypertension , kidney stones, liver disease, malignancy, osteoporosis, renal disease, thyroid disease, syncope, venous stasis, other Surgical history: Reports: breast surgery, cancer surgery, sinus surgery, other Psychiatric history: Reports: anxiety, depression, other - Social History Smoking Status: Never smoker Smokeless Tobacco Status: No Alcohol use: Reports: none Drug use: Reports: none Physical Exam - General Limitations: no limitations General appearance: alert Course Vital Signs Temperature 102.9 F H 02/09/17 17:36 Pulse Rate 126 02/09/17 17:36 Respiratory Rate 20 02/09/17 17:36 Blood Pressure 142/78 02/09/17 17:36 O2 Sat by Pulse Oximetry 96 02/09/17 17:36 Temperature 100.9 F H 02/09/17 20:19 Pulse Rate 111 02/09/17 20:19 Respiratory Rate 22 02/09/17 20:19 Blood Pressure 99/66 02/09/17 20:19 O2 Sat by Pulse Oximetry 94 02/09/17 20:19 Oxygen Delivery Oxygen Delivery Room Air Medical Decision Making - Lab Data Result diagrams: 02/09/17 18:47 02/09/17 18:47 Lab Results 02/09/17 02/09/17 02/09/17 Range/Units 18:47 18:47 18:47 WBC 11.1 (4.3-11.1) K/mcL RBC 4.26 (3.82-4.97) M/mcL Hgb 12.4 (11.5-15.4) g/dL Hct 38.4 (35.3-44.9) % MCV 90.1 (83.0-100.0) fL MCH 29.1 (28.0-33.3) pg MCHC 32.3 (31.6-35.5) g/dL RDW 16.1 H (11.5-14.5) % Plt Count 158 (140-400) K/mcL MPV 11.4 (9.4-12.4) fL Immature Gran % 1.2 (0-4) % Seg Neutrophils % 90.7 % Lymphocytes % 3.4 % Monocytes % 3.9 % Eosinophils % 0.5 % Basophils % 0.3 % Neutrophils # 10.1 H (1.6-8.9) K/mcL Lymphocytes # 0.4 L (0.6-4.6) K/mcL Monocytes # 0.4 (0.0-1.3) K/mcL Eosinophils # 0.1 (0.0-0.6) K/mcL Basophils # 0.0 (0.0-0.2) K/mcL Nucleated RBCs/100 WBC 0.2 H (0) /100 WBC PT 13.0 H (9.4-12.1) Seconds INR 1.2 APTT 24.2 L (26.0-36.0) Seconds Sodium 137 (136-145) mEq/L Potassium 4.1 (3.5-4.5) mEq/L Chloride 107 (98-109) mEq/L Carbon Dioxide 18 L (19-29) mEq/L BUN 21 H (7-20) mg/dL Creatinine 0.98 (0.57-1.11) mg/dL Est GFR ( Amer) > 60 (> 60) Est GFR (Non-Af Amer) 59 L (> 60) BUN/Creatinine Ratio 21 (6-26) Glucose 195 H (70-99) mg/dL Calculated Osmolality 292 (280-300) Lactic Acid (0.5-2.2) mmol/L Calcium 10.4 (8.6-10.8) mg/dL Phosphorus 1.6 L (2.3-4.7) mg/dL Magnesium 1.6 (1.6-2.6) mg/dL Total Bilirubin 0.7 (0.2-1.2) mg/dL Direct Bilirubin 0.2 (0.0-0.5) mg/dL Indirect Bilirubin 0.5 (0.0-1.2) mg/dL AST 24 (5-34) Units/L ALT 41 (0-55) Units/L Alkaline Phosphatase 67 (38-126) Units/L Troponin I (0-0.03) ng/mL Serum Total Protein 7.4 (6.0-8.3) g/dL Albumin 3.8 (3.5-5.0) g/dL Globulin 3.6 H (2.4-3.5) g/dL Albumin/Globulin Ratio 1.1 (1.1-2.2) Urine Color (Yellow) Urine Clarity (Clear) Urine pH (5.0-8.0) pH Units Ur Specific [place] (1.010-1.025) Urine Protein (Neg-Trace) mg/dL Urine Glucose (UA) (Normal) mg/dL Urine Ketones (Negative) mg/dL Urine Blood (Negative) Urine Nitrite (Negative) Urine Bilirubin (Negative) Urine Urobilinogen (Normal) mg/dL Ur Leukocyte Esterase (Negative) Urine Microscopic RBC (0-3) per hpf Urine Microscopic WBC (0-3) per hpf Ur Squamous Epith Cells (None-Few) per lpf Urine Bacteria (None-Few) per hpf Hyaline Casts (None-Few) per lpf Ur Culture Indicated? (NO) 02/09/17 02/09/17 02/09/17 Range/Units 18:47 18:47 19:32 WBC (4.3-11.1) K/mcL RBC (3.82-4.97) M/mcL Hgb (11.5-15.4) g/dL Hct (35.3-44.9) % MCV (83.0-100.0) fL MCH (28.0-33.3) pg MCHC (31.6-35.5) g/dL RDW (11.5-14.5) % Plt Count (140-400) K/mcL MPV (9.4-12.4) fL Immature Gran % (0-4) % Seg Neutrophils % % Lymphocytes % % Monocytes % % Eosinophils % % Basophils % % Neutrophils # (1.6-8.9) K/mcL Lymphocytes # (0.6-4.6) K/mcL Monocytes # (0.0-1.3) K/mcL Eosinophils # (0.0-0.6) K/mcL Basophils # (0.0-0.2) K/mcL Nucleated RBCs/100 WBC (0) /100 WBC PT (9.4-12.1) Seconds INR APTT (26.0-36.0) Seconds Sodium (136-145) mEq/L Potassium (3.5-4.5) mEq/L Chloride (98-109) mEq/L Carbon Dioxide (19-29) mEq/L BUN (7-20) mg/dL Creatinine (0.57-1.11) mg/dL Est GFR ( Amer) (> 60) Est GFR (Non-Af Amer) (> 60) BUN/Creatinine Ratio (6-26) Glucose (70-99) mg/dL Calculated Osmolality (280-300) Lactic Acid 3.2 H 2.5 H (0.5-2.2) mmol/L Calcium (8.6-10.8) mg/dL Phosphorus (2.3-4.7) mg/dL Magnesium (1.6-2.6) mg/dL Total Bilirubin (0.2-1.2) mg/dL Direct Bilirubin (0.0-0.5) mg/dL Indirect Bilirubin (0.0-1.2) mg/dL AST (5-34) Units/L ALT (0-55) Units/L Alkaline Phosphatase (38-126) Units/L Troponin I 0.02 (0-0.03) ng/mL Serum Total Protein (6.0-8.3) g/dL Albumin (3.5-5.0) g/dL Globulin (2.4-3.5) g/dL Albumin/Globulin Ratio (1.1-2.2) Urine Color (Yellow) Urine Clarity (Clear) Urine pH (5.0-8.0) pH Units Ur Specific [place] (1.010-1.025) Urine Protein (Neg-Trace) mg/dL Urine Glucose (UA) (Normal) mg/dL Urine Ketones (Negative) mg/dL Urine Blood (Negative) Urine Nitrite (Negative) Urine Bilirubin (Negative) Urine Urobilinogen (Normal) mg/dL Ur Leukocyte Esterase (Negative) Urine Microscopic RBC (0-3) per hpf Urine Microscopic WBC (0-3) per hpf Ur Squamous Epith Cells (None-Few) per lpf Urine Bacteria (None-Few) per hpf Hyaline Casts (None-Few) per lpf Ur Culture Indicated? (NO) 02/09/17 Range/Units 20:20 WBC (4.3-11.1) K/mcL RBC (3.82-4.97) M/mcL Hgb (11.5-15.4) g/dL Hct (35.3-44.9) % MCV (83.0-100.0) fL MCH (28.0-33.3) pg MCHC (31.6-35.5) g/dL RDW (11.5-14.5) % Plt Count (140-400) K/mcL MPV (9.4-12.4) fL Immature Gran % (0-4) % Seg Neutrophils % % Lymphocytes % % Monocytes % % Eosinophils % % Basophils % % Neutrophils # (1.6-8.9) K/mcL Lymphocytes # (0.6-4.6) K/mcL Monocytes # (0.0-1.3) K/mcL Eosinophils # (0.0-0.6) K/mcL Basophils # (0.0-0.2) K/mcL Nucleated RBCs/100 WBC (0) /100 WBC PT (9.4-12.1) Seconds INR APTT (26.0-36.0) Seconds Sodium (136-145) mEq/L Potassium (3.5-4.5) mEq/L Chloride (98-109) mEq/L Carbon Dioxide (19-29) mEq/L BUN (7-20) mg/dL Creatinine (0.57-1.11) mg/dL Est GFR ( Amer) (> 60) Est GFR (Non-Af Amer) (> 60) BUN/Creatinine Ratio (6-26) Glucose (70-99) mg/dL Calculated Osmolality (280-300) Lactic Acid (0.5-2.2) mmol/L Calcium (8.6-10.8) mg/dL Phosphorus (2.3-4.7) mg/dL Magnesium (1.6-2.6) mg/dL Total Bilirubin (0.2-1.2) mg/dL Direct Bilirubin (0.0-0.5) mg/dL Indirect Bilirubin (0.0-1.2) mg/dL AST (5-34) Units/L ALT (0-55) Units/L Alkaline Phosphatase (38-126) Units/L Troponin I (0-0.03) ng/mL Serum Total Protein (6.0-8.3) g/dL Albumin (3.5-5.0) g/dL Globulin (2.4-3.5) g/dL Albumin/Globulin Ratio (1.1-2.2) Urine Color Yellow (Yellow) Urine Clarity Clear (Clear) Urine pH 7.0 (5.0-8.0) pH Units Ur Specific [place] 1.027 H (1.010-1.025) Urine Protein 100 H (Neg-Trace) mg/dL Urine Glucose (UA) Normal (Normal) mg/dL Urine Ketones Negative (Negative) mg/dL Urine Blood Negative (Negative) Urine Nitrite Negative (Negative) Urine Bilirubin Negative (Negative) Urine Urobilinogen Normal (Normal) mg/dL Ur Leukocyte Esterase Negative (Negative) Urine Microscopic RBC 5-15 H (0-3) per hpf Urine Microscopic WBC 0-3 (0-3) per hpf Ur Squamous Epith Cells Moderate H (None-Few) per lpf Urine Bacteria None Seen (None-Few) per hpf Hyaline Casts None Seen (None-Few) per lpf Ur Culture Indicated? NO (NO) Attestation Statement - Attestation Attestation: I examined this patient and my medical decision-making was reviewed with the Resident Physician. I agree with the documented findings, disposition and treatment plan as described except to the extent set forth below. Status post time provided in conjunction with the resident physician Dr. Cervantes Patient seen upon her arrival to the medical treatment area. She has a history of cancer currently undergoing chemotherapy. She complains of fever. She does feel slightly short of breath. Has a history of pneumonia with similar symptoms in the past. Appears flushed on exam. Left lower extremity cellulitis on exam. She meets SIRS criteria. Sepsis pathway initiated.
[2017-02-09] MEDS ORDERED: Vancomycin 1,750 MG in D5% in Water 500 ML IVPB ONE (17:51)
[2017-02-09] MEDS ORDERED: Ondansetron 4 MG/2 ML VIAL IVP ONE (17:51)
[2017-02-09] MEDS ORDERED: *HR* FentaNYL (PF) 100 MCG/2 ML VIAL IVP ONE (17:51)
--- NOTE | 2017-02-09 17:53 | Emergency Department Note ---
Disposition Clinical Impression: Cellulitis of left lower extremity, Lactic acidosis Sepsis Qualifiers: Sepsis type: sepsis due to unspecified organism Qualified Code(s): A41.9 - Sepsis, unspecified organism Disposition: Admitted As Inpatient Condition: Undetermined Referrals: Ace Knowles DO [Primary Care Provider] - Forms: ED Satisfaction Letter Time of Disposition: 20:16 Fever HPI - General Chief Complaint: ED Fever Stated Complaint: Fever Time Seen by Provider: 02/09/17 17:40 Source: patient, family Mode of arrival: wheelchair Limitations: no limitations Nursing Notes Reviewed: Yes Vital Signs Reviewed: Yes - History of Present Illness HPI Narrative: 56-year-old female with history of breast cancer with chemotherapy which she is currently taking the pill from [facility] emergency department complaining of weakness, fevers, chills over the past 4 days. The patient states this progressively worsened. The patient also states she has extensive history of cellulitis and states that she began experiencing similar symptoms in her left lower extremity when all this started. The patient denies any abdominal pain but does admit to a large amount of nausea. The patient also states that she has had headaches, body aches and myalgias, without cough or difficulty breathing. The patient does state she has a history of CHF but denies any current symptoms associated with this. The patient states that she has been septic in the past 2 or cellulitis. Patient denies any other complaints at this time. The patient is tachycardic with a noted fevers high as 102 here in the emergency department. We will perform a sepsis protocol ED workup here in emergency department and likely admit the patient to the hospital. We will begin the patient on IV fluids and IV antibiotics at this time. Blood cultures will be drawn. Pt Subjective Complaint: fever, malaise Onset (ago): day(s) (4) Temperature Source: oral Context: on chemotherapy Associated symptoms: Reports: chills, myalgias, headache, nausea, night sweats Improves with: nothing Worsens with: nothing Treatments prior to arrival fever: none - Related Data Home Medications Medication Instructions Recorded Confirmed Allopurinol [Zyloprim] 300 mg PO QAM 12/04/14 01/19/17 Metformin [Glucophage] 1,000 mg PO BID 12/04/14 01/19/17 Multivitamin [Multivitamins] 1 cap PO QAM 12/04/14 01/19/17 Ropinirole HCl [Requip] 5 mg PO HS 12/04/14 01/19/17 Ropinirole [Requip] 3 mg PO BID 12/04/14 01/19/17 Metoprolol XL (24 HR) Succ [Toprol 50 mg PO HS 01/03/16 01/19/17 Xl] SitaGLIPtin [Januvia] 100 mg PO DAILY 01/03/16 01/19/17 Gabapentin [Neurontin] 300 mg PO BID 03/21/16 01/19/17 Aspirin 81 mg PO DAILY 08/21/16 01/19/17 Furosemide [Lasix] 40 mg PO DAILY 08/21/16 01/19/17 Albuterol Sulfate [Albuterol 2 puff IH Q4H PRN 10/20/16 01/19/17 Inhaler] Loratadine [Claritin] 10 mg PO DAILY 10/20/16 01/19/17 Gabapentin [Neurontin] 600 mg PO HS 01/19/17 01/19/17 Previous Rx's Medication Instructions Recorded Calcium/D3/Mag Ox/Epitaxial Reactor Operator/Victor Manuel/Zn 2 each PO DAILY #60 tablet 06/20/16 [Caltrate+D3 Plus Mineral Minis] Cholecalciferol (D-3) [Vitamin D] 1,000 unit PO DAILY #90 tablet 06/20/16 Anastrozole [Arimidex] 1 mg PO DAILY #90 tablet 10/23/16 Doxycycline 100 mg PO BID #28 capsule 01/19/17 Allergies Allergy/AdvReac Type Severity Reaction Status Date / Time lorazepam [From Ativan] AdvReac Intermediate Agitated Verified 09/27/16 11:13 All systems ED: reviewed and negative except as stated. Constitutional: Reports: fever, chills, weakness Eyes: Denies: eye pain, vision change ENT ED: Denies: ear pain, congestion, dysphagia Cardiovascular: Denies: chest pain, palpitations, dyspnea on exertion, orthopnea , edema Respiratory: Denies: cough, dyspnea, wheezes, hemoptysis, sputum production Gastrointestinal: Reports: nausea. Denies: abdominal pain, vomiting, diarrhea, constipation Genitourinary: Denies: urgency, dysuria, frequency Musculoskeletal: Denies: back pain, neck pain Integumentary: Reports: rash Neurological: Reports: headache, weakness. Denies: numbness, paresthesias, confusion, abnormal gait, vertigo Fever PMH - Past Medical History Medical history: Reports: arthritis, cancer, cardiomyopathy, CHF, COPD, coronary artery disease, diabetes, GERD, GI bleed, hyperlipidemia, hypertension , kidney stones, liver disease, malignancy, osteoporosis, renal disease, thyroid disease, syncope, venous stasis, other Surgical history: Reports: other (mastectomy) Surgical history: Reports: breast surgery, cancer surgery, sinus surgery, other Psychiatric history: Reports: anxiety, depression, other - Social History Smoking Status: Never smoker Alcohol use: Reports: none Drug use: Reports: none Physical Exam - General Limitations: no limitations General appearance: alert, in no apparent distress - Head Head exam: atraumatic, normocephalic, normal inspection - Eye Eye exam: Present: normal appearance, PERRL, EOMI - ENT ENT exam: normal exam, normal oropharynx, mucous membranes moist - Neck Neck exam: Present: normal inspection, full ROM, trachea midline - Chest Chest inspection: Present: normal inspection, symmetric chest wall rise - Respiratory Respiratory exam: Present: normal lung sounds bilaterally - Cardiovascular Cardiovascular exam: Present: normal rhythm, tachycardia, normal heart sounds - Abdominal Exam Abdominal exam: Present: soft, Non-Tender. Absent: tenderness, distention, guarding, rebound, rigidity - Extremities Exam Extremities exam: Present: full ROM, other (Patient has erythema is associated with cellulitis with hot to palpation in left lower extremity from mid calf to ankle.) Course - Consultations Consultation #1: I spoke with Dr. Tovar in hematology oncology who agreed with the patient's plan to be admitted to the hospitalist service. Time: 18:11 Vital Signs Temperature 102.9 F H 02/09/17 17:36 Pulse Rate 126 02/09/17 17:36 Respiratory Rate 20 02/09/17 17:36 Blood Pressure 142/78 02/09/17 17:36 O2 Sat by Pulse Oximetry 96 02/09/17 17:36 Temperature 102.9 F H 02/09/17 17:36 Pulse Rate 118 02/09/17 18:58 Respiratory Rate 20 02/09/17 18:58 Blood Pressure 161/68 02/09/17 18:58 O2 Sat by Pulse Oximetry 96 02/09/17 18:58 Oxygen Delivery Oxygen Delivery Room Air Fever - MDM Narrative Medical decision making narrative: Patient appears to be Septic. The patient has a lactic acidosis initially 3.2 but after fluids direct to 2.5. The patient is still slightly tachycardic. This appears to all be related to a cellulitis of her left lower extremity. The patient was started on vancomycin and Zosyn. We will admit the patient to the hospitalist at the time. - Lab Data Lab results reviewed: Yes I reviewed the patient's lab results. Result diagrams: 02/09/17 18:47 02/09/17 18:47 Lab Results 02/09/17 02/09/17 02/09/17 Range/Units 18:47 18:47 18:47 WBC 11.1 (4.3-11.1) K/mcL RBC 4.26 (3.82-4.97) M/mcL Hgb 12.4 (11.5-15.4) g/dL Hct 38.4 (35.3-44.9) % MCV 90.1 (83.0-100.0) fL MCH 29.1 (28.0-33.3) pg MCHC 32.3 (31.6-35.5) g/dL RDW 16.1 H (11.5-14.5) % Plt Count 158 (140-400) K/mcL MPV 11.4 (9.4-12.4) fL Immature Gran % 1.2 (0-4) % Seg Neutrophils % 90.7 % Lymphocytes % 3.4 % Monocytes % 3.9 % Eosinophils % 0.5 % Basophils % 0.3 % Neutrophils # 10.1 H (1.6-8.9) K/mcL Lymphocytes # 0.4 L (0.6-4.6) K/mcL Monocytes # 0.4 (0.0-1.3) K/mcL Eosinophils # 0.1 (0.0-0.6) K/mcL Basophils # 0.0 (0.0-0.2) K/mcL Nucleated RBCs/100 WBC 0.2 H (0) /100 WBC PT 13.0 H (9.4-12.1) Seconds INR 1.2 APTT 24.2 L (26.0-36.0) Seconds Sodium 137 (136-145) mEq/L Potassium 4.1 (3.5-4.5) mEq/L Chloride 107 (98-109) mEq/L Carbon Dioxide 18 L (19-29) mEq/L BUN 21 H (7-20) mg/dL Creatinine 0.98 (0.57-1.11) mg/dL Est GFR ( Amer) > 60 (> 60) Est GFR (Non-Af Amer) 59 L (> 60) BUN/Creatinine Ratio 21 (6-26) Glucose 195 H (70-99) mg/dL Calculated Osmolality 292 (280-300) Lactic Acid (0.5-2.2) mmol/L Calcium 10.4 (8.6-10.8) mg/dL Phosphorus 1.6 L (2.3-4.7) mg/dL Magnesium 1.6 (1.6-2.6) mg/dL Total Bilirubin 0.7 (0.2-1.2) mg/dL Direct Bilirubin 0.2 (0.0-0.5) mg/dL Indirect Bilirubin 0.5 (0.0-1.2) mg/dL AST 24 (5-34) Units/L ALT 41 (0-55) Units/L Alkaline Phosphatase 67 (38-126) Units/L Troponin I (0-0.03) ng/mL Serum Total Protein 7.4 (6.0-8.3) g/dL Albumin 3.8 (3.5-5.0) g/dL Globulin 3.6 H (2.4-3.5) g/dL Albumin/Globulin Ratio 1.1 (1.1-2.2) 02/09/17 02/09/17 02/09/17 Range/Units 18:47 18:47 19:32 WBC (4.3-11.1) K/mcL RBC (3.82-4.97) M/mcL Hgb (11.5-15.4) g/dL Hct (35.3-44.9) % MCV (83.0-100.0) fL MCH (28.0-33.3) pg MCHC (31.6-35.5) g/dL RDW (11.5-14.5) % Plt Count (140-400) K/mcL MPV (9.4-12.4) fL Immature Gran % (0-4) % Seg Neutrophils % % Lymphocytes % % Monocytes % % Eosinophils % % Basophils % % Neutrophils # (1.6-8.9) K/mcL Lymphocytes # (0.6-4.6) K/mcL Monocytes # (0.0-1.3) K/mcL Eosinophils # (0.0-0.6) K/mcL Basophils # (0.0-0.2) K/mcL Nucleated RBCs/100 WBC (0) /100 WBC PT (9.4-12.1) Seconds INR APTT (26.0-36.0) Seconds Sodium (136-145) mEq/L Potassium (3.5-4.5) mEq/L Chloride (98-109) mEq/L Carbon Dioxide (19-29) mEq/L BUN (7-20) mg/dL Creatinine (0.57-1.11) mg/dL Est GFR ( Amer) (> 60) Est GFR (Non-Af Amer) (> 60) BUN/Creatinine Ratio (6-26) Glucose (70-99) mg/dL Calculated Osmolality (280-300) Lactic Acid 3.2 H 2.5 H (0.5-2.2) mmol/L Calcium (8.6-10.8) mg/dL Phosphorus (2.3-4.7) mg/dL Magnesium (1.6-2.6) mg/dL Total Bilirubin (0.2-1.2) mg/dL Direct Bilirubin (0.0-0.5) mg/dL Indirect Bilirubin (0.0-1.2) mg/dL AST (5-34) Units/L ALT (0-55) Units/L Alkaline Phosphatase (38-126) Units/L Troponin I 0.02 (0-0.03) ng/mL Serum Total Protein (6.0-8.3) g/dL Albumin (3.5-5.0) g/dL Globulin (2.4-3.5) g/dL Albumin/Globulin Ratio (1.1-2.2) - Radiology Data Radiology results reviewed: Yes I reviewed the patient's radiology results. - EKG Data EKG attestation: Yes I reviewed and interpreted this EKG. EKG results narrative: Heart rate 1 23 bpm. ID interval 167 segs. Normal axis. Sinus tachycardia with no ST elevation or ST depression noted. No acute changes other than sinus tachycardia. EKG similar appearance EKG from 08/20/2016.
[2017-02-09] MEDS: 0.9 % Sodium Chloride 1,000 ML IVC SCH (18:48)
[2017-02-09 19:03] LABS: Basophils % 0.3 %; Eosinophils # 0.1 K/mcL (0.0-0.6); Eosinophils % 0.5 %; Hematocrit 38.4 % (35.3-44.9); Hemoglobin 12.4 g/dL (11.5-15.4); Immature Granulocytes % 1.2 % (0-4); Lymphocytes # 0.4 K/mcL (0.6-4.6); Lymphocytes % 3.4 %; Mean Corpuscular HGB Conc 32.3 g/dL (31.6-35.5); Mean Corpuscular Hemoglobin 29.1 pg (28.0-33.3); Mean Corpuscular Volume 90.1 fL (83.0-100.0); Mean Platelet Volume 11.4 fL (9.4-12.4); Monocytes # 0.4 K/mcL (0.0-1.3); Monocytes % 3.9 %; Neutrophils # 10.1 K/mcL (1.6-8.9); Nucleated Red Blood Cells 0.2 /100 WBC (0); Platelet Count 158 K/mcL (140-400); Red Blood Count 4.26 M/mcL (3.82-4.97); Red Cell Distribution Width 16.1 % (11.5-14.5); Segmented Neutrophils % 90.7 %
[2017-02-09 19:07] LABS: INR 1.2
[2017-02-09 19:09] LABS: Activated Partial Thrombo Time 24.2 Seconds (26.0-36.0)
[2017-02-09] MEDS ORDERED: 0.9 % Sodium Chloride 1,000 ML IVC ONE (19:16)
[2017-02-09 19:17] LABS: Alanine Aminotransferase 41 Units/L (0-55); Albumin 3.8 g/dL (3.5-5.0); Albumin/Globulin Ratio 1.1 (1.1-2.2); Alkaline Phosphatase 67 Units/L (38-126); Aspartate Amino Transferase 24 Units/L (5-34); BUN/Creatinine Ratio 21 (6-26); Bilirubin,Direct 0.2 mg/dL (0.0-0.5); Bilirubin,Indirect 0.5 mg/dL (0.0-1.2); Bilirubin,Total 0.7 mg/dL (0.2-1.2); Blood Urea Nitrogen 21 mg/dL (7-20); Calcium 10.4 mg/dL (8.6-10.8); Carbon Dioxide 18 mEq/L (19-29); Chloride 107 mEq/L (98-109); Globulin 3.6 g/dL (2.4-3.5); Glucose 195 mg/dL (70-99); Magnesium 1.6 mg/dL (1.6-2.6); Osmolality,Calculated 292 (280-300); Phosphorous 1.6 mg/dL (2.3-4.7); Potassium 4.1 mEq/L (3.5-4.5); Sodium 137 mEq/L (136-145); Total Protein 7.4 g/dL (6.0-8.3); eGFR For African Americans > 60 (> 60); eGFR For Non-African Americans 59 (> 60)
[2017-02-09 20:30] LABS: Bilirubin,Urine Negative (Negative); Blood,Urine Negative (Negative); Clarity,Urine Clear (Clear); Color,Urine Yellow (Yellow); Glucose,Urine (UA) Normal (Normal); Ketones,Urine Negative (Negative); Leukocyte Esterase,Urine Negative (Negative); Nitrite,Urine Negative (Negative); Protein,Urine 100 mg/dL (Neg-Trace); Specific Gravity,Urine 1.027 (1.010-1.025); Urobilinogen,Urine Normal (Normal)
[2017-02-09 20:31] LABS: Bacteria,Urine None Seen per hpf (None-Few); Hyaline Casts,Urine None Seen per lpf (None-Few); Squamous Epithelial Cell,Urine Moderate per lpf (None-Few); WBC,Urine 0-3 per hpf (0-3)
[2017-02-10] MEDS ORDERED: 0.9 % Sodium Chloride 1,000 ML ONE (02:10)
[2017-02-10] MEDS: 0.9 % Sodium Chloride 1,000 ML IVC SCH (02:21)
[2017-02-10] MEDS ORDERED: *HR* Morphine 2 MG/ML SYRINGE IVP PRN (04:41)
[2017-02-10] MEDS ORDERED: D5% in Water 1,000 ML IVC PRN (04:42)
[2017-02-10] MEDS ORDERED: Dextrose Gel 15 GM PO PRN ×2 (04:42)
[2017-02-10] MEDS ORDERED: *HR* Dextrose 50 % in Water (Syg) 50 ML SYRINGE IVP PRN (04:42)
[2017-02-10] MEDS: traMADol 50 MG TABLET PO PRN ×2 (04:57→16:48)
[2017-02-10 05:35] LABS: Hemoglobin A1C 5.4 %
[2017-02-10] MEDS ORDERED: Naloxone 0.4 MG/ML INJ IVP PRN (06:09)
[2017-02-10] MEDS ORDERED: *HR* Promethazine 25 MG/ML VIAL IVP PRN (06:09)
[2017-02-10] MEDS ORDERED: Ondansetron 4 MG/2 ML VIAL IVP PRN (06:09)
--- NOTE | 2017-02-10 06:16 | Internal Med History&Physical ---
Date of Encounter: 02/10/17 Time of Encounter: 06:14 Assessment and Plan (1) Sepsis Current visit: Yes Status: Acute Will admit the pt into Med Surg She does meet the Sepsis criteria with tachycardia, Fever and source of inf as cellulites Started her on empirical abx Zosyn and Vancomycin blood cx drawn in the ER cont symptomatic and supportive care Qualifiers: Sepsis type: sepsis due to unspecified organism Qualified Code(s): A41.9 - Sepsis, unspecified organism (2) Cellulitis of left lower extremity Current visit: Yes Status: Acute cont abx keep the leg elevated (3) Lactic acidosis Current visit: Yes Status: Acute improved (4) DM (diabetes mellitus), type 2 with renal complications Current visit: No Status: Chronic Held Metformin since pt is getting abx which can cause ATN placed her on ISS for now Qualifiers: Diabetes mellitus complication detail: with chronic kidney disease Diabetes mellitus computer terminal operator insulin use: without computer terminal operator use Chronic kidney disease stage: stage 3 (moderate) Qualified Code(s): E11.22 - Type 2 diabetes mellitus with diabetic chronic kidney disease; N18.3 - Chronic kidney disease, stage 3 (moderate) (5) DVT prophylaxis Current visit: No Status: Acute on Lovenox SQ Internal Medicine - H&P: HPI Chief complaint: Cellulites Admitted From: Emergency Dept Plans for Post Hospital Care: Home History of present illness: Ms. Aggarwal is a 56 year old female with history of breast cancer with actie chemotherapy, COPD, HTN , Recurrent leg cellulites pt presented to [facility] emergency department complaining of weakness, fevers, chills over the past 2 days asosicated with swelling and redness in Left leg started 2 days ago. Patient denies any other complaints at this time. The patient is tachycardic with a noted fevers high as 102 in the emergency department. Past Med Surg Social Fam HX - Past Medical History Medical history: arthritis, cancer, cardiomyopathy, CHF, COPD, coronary artery disease, diabetes, GERD, GI bleed, hyperlipidemia, hypertension, liver disease, malignancy, osteoporosis, renal disease, thyroid disease, syncope, venous stasis , other Psychiatric history: anxiety, depression, other - Past Surgical History Surgical History: breast surgery, cancer surgery, sinus surgery, other - Social History Smoking Status: Never smoker Smokeless Tobacco Status: No Alcohol use: none Drug use: none - Family History Father Adopted: No Family Member Ethnicity: Non- Living Status: Hx Family Cardiac Disorders: Yes ([place] @ 50yrs and 75) Hx Family Respiratory Disorders: No Hx Family Cancer: No Hx Family GI Disorders: No Hx Family Endocrine Disorder: Yes (kidney disease, dialysis) Hx Family Neuromuscular Disorders: No Hx Family Neurologic Disorders: Yes (STROKE) Hx Family HEENT Disorders: No Hx Family Autoimmune Disorders: No Mother Living Status: Still Living Hx Family Cardiac Disorders: No Hx Family Respiratory Disorders: No Hx Family Cancer: Yes (skin cancer) Hx Family GI Disorders: No Hx Family Endocrine Disorder: No Hx Family Neuromuscular Disorders: No Sister Living Status: Still Living Hx Family Cardiac Disorders: No Hx Family Respiratory Disorders: No Hx Family Cancer: Yes (breast) Hx Family GI Disorders: No Hx Family Endocrine Disorder: Yes (diabetes) Hx Family Neuromuscular Disorders: No Hx Family Neurologic Disorders: No Hx Family HEENT Disorders: No Hx Family Autoimmune Disorders: Yes (lupus) Internal Medicine - H&P: Meds Metformin [Glucophage] 1,000 mg PO BID 12/04/14 [History] Multivitamin [Multivitamins] 1 cap PO QAM 12/04/14 [History] Ropinirole [Requip] 3 mg PO BID 12/04/14 [History] Metoprolol XL (24 HR) Succ [Toprol Xl] 50 mg PO HS 01/03/16 [History] SitaGLIPtin [Januvia] 100 mg PO DAILY 01/03/16 [History] Gabapentin [Neurontin] 300 mg PO BID 03/21/16 [History] Calcium/D3/Mag Ox/Outpatient Physical Therapist/Victor Manuel/Zn [Caltrate+D3 Plus Mineral Minis] 2 each PO DAILY # 60 tablet 06/20/16 [Rx] Cholecalciferol (D-3) [Vitamin D] 1,000 unit PO DAILY #90 tablet 06/20/16 [Rx] Aspirin 81 mg PO DAILY 08/21/16 [History] Furosemide [Lasix] 40 mg PO DAILY 08/21/16 [History] Loratadine [Claritin] 10 mg PO DAILY 10/20/16 [History] Anastrozole [Arimidex] 1 mg PO DAILY #90 tablet 10/23/16 [Rx] Gabapentin [Neurontin] 600 mg PO HS 01/19/17 [History] Allopurinol [Zyloprim] 300 mg PO DAILY 02/09/17 [History] Ezetimibe [Zetia] 10 mg PO DAILY 02/09/17 [History] Potassium Chloride [K-Tab ER] 20 meq PO DAILY 02/09/17 [History] Ropinirole HCl [Requip] 5 mg PO HS 02/09/17 [History] Tramadol HCl [Ultram] 50 mg PO TID PRN 02/09/17 [History] 3 Allergy/AdvReac Type Severity Reaction Status Date / Time lorazepam [From Ativan] AdvReac Intermediate Agitated Verified 09/27/16 11:13 Oxycodone AdvReac Confusion Verified 02/09/17 20:15 All Systems PM: A 10-system review of systems was performed and is negative for pertinent findings except as documented above in the HPI. Review of systems: Reviewed all the systems, everything is benign except the systems and symptoms I mentioned in HPI - Constitutional Vitals: Temp Pulse Resp BP Pulse Ox 98.7 F 92 16 100/73 96 02/10/17 02:42 02/10/17 02:42 02/10/17 02:42 02/10/17 02:42 02/10/17 02:42 General appearance: Present: A&O X 3, no acute distress, answers questions appropriately - Head Head exam: Present: atraumatic, normal inspection - Respiratory Respiratory exam: Present: decreased breath sounds, wheezes. Absent: rales, respiratory distress, rhonchi - Cardiovascular Cardiovascular exam: Present: RRR, +S1, +S2. Absent: systolic murmur - GI/Abdominal GI/Abdominal exam: Present: distended, soft. Absent: rebound, rigid, tenderness - Extremities Exam Extremities exam: Present: pedal edema (Left leg), tenderness (left leg). Absent: calf tenderness Additional comments: diffuse circumferential erythema extending from ankle to mid calf in Left leg noticed Internal Med - H&P Results - Labs CBC & Chem 7: 02/09/17 18:47 02/09/17 18:47
[2017-02-10] MEDS ORDERED: Vancomycin 1,750 MG in D5% in Water 250 ML IVPB SCH (07:00)
[2017-02-10] MEDS ORDERED: Vancomycin 1,750 MG in D5% in Water 500 ML IVPB SCH (08:00)
[2017-02-10] MEDS: Multivit/Ca/Min/Fe/FA 1 TAB TABLET PO SCH (09:02)
[2017-02-10] MEDS: Insulin LISPRO 300 UNITS/3 ML VIAL SQ SCH ×3 (09:02→17:08)
[2017-02-10] MEDS: Loratadine 10 MG TABLET PO SCH (09:02)
[2017-02-10] MEDS: Gabapentin 300 MG CAPSULE PO SCH ×3 (09:02→22:01)
[2017-02-10] MEDS: Piperacillin/Tazobactam 3.375 GM in D5% in Water (Mini-Bag+) 100 ML IVPB SCH ×2 (09:07→16:33)
--- NOTE | 2017-02-10 12:31 | Event Note ---
<Vikas Jung - Last Filed: 02/10/17 12:18> Date of Encounter: 02/10/17 Time of Encounter: 12:18 Ms. Aggarwal to 56-year-old woman with history of breast cancer is on active chemotherapy, COPD, hypertension, recurrent left leg cellulitis who presented to the ER complaining of weakness, fevers, chills past 2 days associated with swelling and redness of the left leg which started 2 days ago. The patient is currently experiencing less pain than she was previously, she says that it may be 5 out of 10. She otherwise has no acute complaints and says that she is feeling well. She says that she feels as though the fever has begun to resolve. Focused physical exam: LLE: diffuse edema and ecchymosis below the knee. Area of demarcation has expanded in comparison to marked area from the musical instrument maker. Warm compared to RLE. There are no obvious abrasions or lacerations present. Tenderness along deep venous system of LLE. A/P 1. Sepsis 2. Cellulitis of LLE 3. DM2 Continue Zosyn/Vanc for sepsis, 130ml/hr normal saline. Monitor vitals, control pain. B/l LE doppler US to rule out DVT, Wells score 4. <Nam Mckoy - Last Filed: 02/10/17 17:20> Date of Encounter: 02/10/17 Ms. Aggarwal was admitted earlier this AM for cellulitis of LLE. She is on IV abx. Venous doppler ordered. Agree with plan as documented above and in H&P.
[2017-02-10] MEDS: Acetaminophen 325 MG TABLET PO PRN (18:26)
[2017-02-10] MEDS ORDERED: NON-FORMULARY MEDICATION 1 EACH EACH (Ropinirole Hcl [Requip] 5 MG) PO SCH (21:00)
[2017-02-10] MEDS: rOPINIRole 3 MG, rOPINIRole 2 MG PO SCH (22:01)
[2017-02-10] MEDS: Metoprolol XL (24 HR) Succ 50 MG TAB.ER.24H PO SCH (22:01)
[2017-02-11] MEDS: Piperacillin/Tazobactam 3.375 GM in D5% in Water (Mini-Bag+) 100 ML IVPB SCH ×3 (00:04→16:39)
[2017-02-11 05:39] LABS: Basophils % 0.6 %; Eosinophils # 0.1 K/mcL (0.0-0.6); Eosinophils % 1.7 %; Hematocrit 32.3 % (35.3-44.9); Hemoglobin 10.3 g/dL (11.5-15.4); Immature Granulocytes % 0.8 % (0-4); Lymphocytes # 0.7 K/mcL (0.6-4.6); Lymphocytes % 10.9 %; Mean Corpuscular HGB Conc 31.9 g/dL (31.6-35.5); Mean Corpuscular Hemoglobin 29.1 pg (28.0-33.3); Mean Corpuscular Volume 91.2 fL (83.0-100.0); Mean Platelet Volume 11.6 fL (9.4-12.4); Monocytes # 0.4 K/mcL (0.0-1.3); Neutrophils # 5.2 K/mcL (1.6-8.9); Platelet Count 130 K/mcL (140-400); Red Blood Count 3.54 M/mcL (3.82-4.97); Red Cell Distribution Width 16.4 % (11.5-14.5)
[2017-02-11 05:47] LABS: BUN/Creatinine Ratio 17 (6-26); Blood Urea Nitrogen 16 mg/dL (7-20); Calcium 9.1 mg/dL (8.6-10.8); Carbon Dioxide 21 mEq/L (19-29); Chloride 109 mEq/L (98-109); Glucose 118 mg/dL (70-99); Osmolality,Calculated 284 (280-300); Sodium 136 mEq/L (136-145); eGFR For African Americans > 60 (> 60); eGFR For Non-African Americans > 60 (> 60)
[2017-02-11] MEDS: *HR* Enoxaparin 40 MG/0.4 ML SYRINGE SQ SCH (06:34)
--- NOTE | 2017-02-11 08:01 | Internal Med Progress Note ---
<Vikas Jung - Last Filed: 02/11/17 08:29> Date of Encounter: 02/11/17 Time of Encounter: 08:01 - Assessment and plan (1) Sepsis Current Visit: Yes Status: Acute Assessment and plan: Sepsis secondary to LLE Cellulitis On Vanc/Zosyn for empiric treatment Blood cultures pending Patient experienced fevers, tachycardia, tachypnea overnight. CT Scan of the LLE to check for abscess due to poor improvement on Vanc/Zosyn History of CHF, Lactic acid is down, Appears euvolemic on exam. We will give 100ml/hr rather than 30ml/kg and reevaluate regularly Qualifiers: Sepsis type: sepsis due to unspecified organism Qualified Code(s): A41.9 - Sepsis, unspecified organism (2) Cellulitis of left lower extremity Current Visit: Yes Status: Acute Assessment and plan: Cellulitis of LLE, stable There is no proximal extension of the cellulitis, however there appears to be distal extension Pain has remained relatively stable, according to patient Edema seems to have decreased, erythema has increased as has warmth CT of LLE pending (3) Lactic acidosis Current Visit: Yes Status: Resolved Assessment and plan: Lactic acid decreased, continue to treat for sepsis (4) DM (diabetes mellitus), type 2 with renal complications Current Visit: No Status: Chronic Assessment and plan: Diabetes mellitus type 2, stable Platelet glucoses remained in range of 120-180 Continue to monitor Qualifiers: Diabetes mellitus complication detail: with chronic kidney disease Diabetes mellitus terminal block assembler insulin use: without terminal block assembler use Chronic kidney disease stage: stage 3 (moderate) Qualified Code(s): E11.22 - Type 2 diabetes mellitus with diabetic chronic kidney disease; N18.3 - Chronic kidney disease, stage 3 (moderate) (5) History of CHF (congestive heart failure) Current Visit: No Status: Chronic Assessment and plan: Personal history of CHF Last echo 10/20 shows LVEF 65-70%, mild concentric left ventricular hypertrophy, mild left ventricular diastolic dysfunction The patient appears euvolemic on exam Indications for fluid overload, however we will continue to hydrate gently in order to avoid (6) DVT prophylaxis Current Visit: Yes Status: Acute Assessment and plan: Subcutaneous Lovenox - Subjective Interval history: The patient experienced several fevers overnight, and also had tachycardia. She says that she is still having a lot of pain, and she is experiencing some constipation associated with hospitalization and pain medication. She said that she cannot tell a notable difference between yesterday and today as far as her left lower extremity cellulitis is concerned, although she does think that there might be a less edema than was previously. She has no other acute complaints. - Constitutional Vitals: Temp Pulse Resp BP Pulse Ox 98.7 F 79 18 147/88 98 02/11/17 04:00 02/11/17 07:00 02/11/17 07:00 02/11/17 07:00 02/11/17 07:00 General appearance: Present: A&O X 3, no acute distress, obese, answers questions appropriately - Head Head exam: Present: atraumatic, normocephalic - Eye Eye exam: Present: PERRL, conjuntiva pink, sclera anicteric Pupils: Present: PERRL - Neck Neck exam general surgery: Present: supple, trachea midline. Absent: lymphadenopathy - Respiratory Respiratory exam: Present: CTAB. Absent: accessory muscle use, rales, rhonchi, wheezes - Cardiovascular Cardiovascular exam: Present: RRR, +S1, +S2. Absent: diastolic murmur, gallop, rubs, systolic murmur - GI/Abdominal GI/Abdominal exam: Present: normal bowel sounds, soft, no peritoneal signs. Absent: distended, tenderness - Extremities Exam Extremities exam: Present: pedal edema, tenderness, warm, radial pulses palpable and symmetrical. Absent: calf tenderness, cyanotic Additional comments: LLE Erythematous and edematous below the knee. Area of infection within proximal bounds of demarcation, however there is distal extension past lines of demarcation. Edema appears improved. - Neurological Exam Neurological exam: Present: CN II-XII intact, oriented X3, no focal deficits. Absent: pronater drift, facial droop, speech deficit - Skin Skin exam: Present: dry, intact Internal Medicine: Result - Labs CBC & Chem 7: 02/11/17 04:30 02/11/17 04:30 Labs: Short CBC 02/11/17 Range/Units 04:30 WBC 6.5 (4.3-11.1) K/mcL Hgb 10.3 L D (11.5-15.4) g/dL Hct 32.3 L (35.3-44.9) % Plt Count 130 L (140-400) K/mcL Neutrophils # 5.2 (1.6-8.9) K/mcL BMP 02/11/17 04:30 Sodium 136 Potassium 4.0 Chloride 109 Carbon Dioxide 21 BUN 16 Creatinine 0.92 Glucose 118 H Calcium 9.1 - ABG Interpretation ABG results: PT/INR, D-dimer PT 13.0 Seconds (9.4-12.1) H 02/09/17 18:47 Consult Discharge Plan - Plan Referrals: Ace Knowles DO [Primary Care Provider] - <Nam Mckoy - Last Filed: 02/11/17 12:51> Date of Encounter: 02/11/17 - Assessment and plan (1) Cellulitis of left lower extremity Current Visit: Yes Status: Acute (2) Sepsis Current Visit: Yes Status: Suspected Qualifiers: Sepsis type: Streptococcus group A Qualified Code(s): A40.0 - Sepsis due to streptococcus, group A (3) Lymphedema Current Visit: Yes Status: Chronic (4) CHF (congestive heart failure) Current Visit: Yes Status: Chronic Qualifiers: Congestive heart failure type: diastolic Congestive heart failure chronicity: chronic Qualified Code(s): I50.32 - Chronic diastolic (congestive ) heart failure (5) CKD stage 3 secondary to diabetes Current Visit: Yes Status: Chronic (6) Gastroparesis Current Visit: No Status: Chronic (7) Morbid obesity with BMI of 45.0-49.9, adult Current Visit: Yes Status: Chronic (8) Degenerative arthritis Current Visit: Yes Status: Chronic Qualifiers: Osteoarthritis location: knee Osteoarthritis type: other secondary Laterality: bilateral Qualified Code(s): 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 - Constitutional Vitals: Temp Pulse Resp BP Pulse Ox 98.3 F 79 16 146/85 98 02/11/17 11:44 02/11/17 11:44 02/11/17 11:44 02/11/17 11:44 02/11/17 07:00 Internal Medicine: Result - Labs CBC & Chem 7: 02/11/17 04:30 02/11/17 04:30 Labs: Short CBC 02/11/17 Range/Units 04:30 WBC 6.5 (4.3-11.1) K/mcL Hgb 10.3 L D (11.5-15.4) g/dL Hct 32.3 L (35.3-44.9) % Plt Count 130 L (140-400) K/mcL Neutrophils # 5.2 (1.6-8.9) K/mcL BMP 02/11/17 04:30 Sodium 136 Potassium 4.0 Chloride 109 Carbon Dioxide 21 BUN 16 Creatinine 0.92 Glucose 118 H Calcium 9.1 - ABG Interpretation ABG results: PT/INR, D-dimer PT 13.0 Seconds (9.4-12.1) H 02/09/17 18:47 - Impressions Impressions Lower Extremity CT 02/11/17 10:30 IMPRESSION: Diffuse subcutaneous edema throughout the visualized left lower extremity, most prominent laterally to the mid to distal leg without discrete focal rim enhancing fluid collection to suggest abscess formation. Findings are likely on the basis of cellulitis. No soft tissue gas. No acute bony abnormalities. No CT evidence for osteomyelitis. Stable degenerative changes to left lower extremity joints as above. There is also a trace left knee joint effusion and there is redemonstration of chondrocalcinosis to the knee which could relate to the degenerative changes or could reflect calcium pyrophosphate deposition (CPPD) disease. D/ / 02/11/2017 10:33:03 Geoffrey Davidson MD / charline Interpreting Provider: Geoffrey Davidson MD - Attending Attestation I examined this patient and my medical decision-making was reviewed with the Resident Physician on 02/11/17. I agree with the documented findings, disposition and treatment plan as described except to the extent set forth below. Ms Aggarwal is currently admitted for acute LLE cellulitis. She continues to be febrile intermittenly. She remains on IV abx. She remains moderate to high risk due to potential for worsening infection. Ms. Aggarwal feels OK. No CP or SOB. Still febrile at times. Leg is slightly better. Feels she has fungus on her feet. Exam Alert. Comfortable Heart reg Lungs clear Abd soft Mucus membranes moist LLE with continued erythema and warmth. Slight decrease from marking. CT negative for abscess. I/P 1. Cellulitis LLE 2. Chronic lymphedema L Further diagnoses and plan as above.
[2017-02-11] MEDS: Gabapentin 300 MG CAPSULE PO SCH ×3 (08:32→20:48)
[2017-02-11] MEDS: Loratadine 10 MG TABLET PO SCH (08:32)
[2017-02-11] MEDS: Insulin LISPRO 300 UNITS/3 ML VIAL SQ SCH ×3 (08:32→16:43)
[2017-02-11] MEDS: Multivit/Ca/Min/Fe/FA 1 TAB TABLET PO SCH (08:32)
[2017-02-11] MEDS: Vancomycin 1,250 MG in D5% in Water 250 ML IVPB SCH ×3 (08:34→20:48)
[2017-02-11] MEDS ORDERED: Sennosides/Docusate Sodium TABLET PO PRN (09:06)
[2017-02-11] MEDS ORDERED: DiphenhydraMINE CREAM 28.4 GM TUBE TP PRN (10:44)
[2017-02-11] MEDS: traMADol 50 MG TABLET PO PRN ×2 (11:10→18:51)
[2017-02-11] MEDS ORDERED: 0.9 % Sodium Chloride 1,000 ML IVC SCH (11:45)
[2017-02-11] MEDS: Ketoconazole 2% CRM 15 GM TUBE TP SCH ×2 (11:47→20:50)
--- NOTE | 2017-02-11 15:56 | Venous Imaging Report ---
LE Venous Duplex Patient Name:Jailene Aggarwal Order Number:[id number] Procedure Date:02/10/2017 Date:1960ge:56 yrs Gender:Female Location:[facility] Room #: [id number] Assistant Dean Of Students:Lloyd Cooney FRANK Referring MD:DO Brittany Navarrete MD:Tom Schofield MD Primary Indications:Edema Secondary Indications: Risk Factors Yes/No Hx of Chemotherapy Yes Impressions: Normal left lower extremity deep and superficial venous exam. Normal contralateral common femoral vein. Recommendations: After imaging the patient returned to their room. Findings Venous Duplex Results: Right: Venous imaging of the lower extremity reveals full patency and normal vessel compressibility of the right common femoral. Doppler signals in the evaluated veins were normal. Left: Venous imaging of the lower extremity reveals full patency and normal vessel compressibility of the left distal iliac, left common femoral, left superficial femoral, left popliteal, left posterior tibial, left peroneal, left great saphenous and left lesser saphenous. Doppler signals in the evaluated veins were normal. Lower Extremity Venous Duplex Side Vein Compress Spontaneous Flow Augment Diameter (cm) Depth (cm) Left Distal Iliac Normal Yes Phasic Yes Left Common Femoral Normal Yes Phasic Yes Left Superficial Femoral Normal Yes Phasic Yes Left Popliteal Normal Yes Phasic Yes Left Posterior Tibial Normal Yes Phasic Yes Left Peroneal Normal Yes Phasic Yes Left Great Saphenous Normal Yes Phasic Yes Left Lesser Saphenous Normal Yes Phasic Yes Right Common Femoral Normal Yes Phasic Yes Updated by Tom Schofield MD on 02/11/2017 3:50:54 PM electronically signed on 02/11/2017 3:51:09 PM with status of Final
[2017-02-11] MEDS: rOPINIRole 3 MG, rOPINIRole 2 MG PO SCH (20:47)
[2017-02-11] MEDS: Metoprolol XL (24 HR) Succ 50 MG TAB.ER.24H PO SCH (20:48)
[2017-02-12] MEDS: Piperacillin/Tazobactam 3.375 GM in D5% in Water (Mini-Bag+) 100 ML IVPB SCH (00:10)
[2017-02-12 04:46] LABS: Basophils % 0.6 %; Eosinophils # 0.1 K/mcL (0.0-0.6); Eosinophils % 2.3 %; Hematocrit 31.3 % (35.3-44.9); Hemoglobin 10.2 g/dL (11.5-15.4); Lymphocytes % 20.5 %; Mean Corpuscular HGB Conc 32.6 g/dL (31.6-35.5); Mean Corpuscular Hemoglobin 29.1 pg (28.0-33.3); Mean Corpuscular Volume 89.4 fL (83.0-100.0); Mean Platelet Volume 11.5 fL (9.4-12.4); Monocytes # 0.4 K/mcL (0.0-1.3); Monocytes % 7.2 %; Neutrophils # 3.3 K/mcL (1.6-8.9); Platelet Count 144 K/mcL (140-400); Red Cell Distribution Width 16.4 % (11.5-14.5); Segmented Neutrophils % 68.4 %
[2017-02-12 04:49] LABS: BUN/Creatinine Ratio 18 (6-26); Blood Urea Nitrogen 16 mg/dL (7-20); Calcium 8.8 mg/dL (8.6-10.8); Carbon Dioxide 18 mEq/L (19-29); Chloride 112 mEq/L (98-109); Glucose 121 mg/dL (70-99); Osmolality,Calculated 284 (280-300); Potassium 3.8 mEq/L (3.5-4.5); Sodium 136 mEq/L (136-145); eGFR For African Americans > 60 (> 60); eGFR For Non-African Americans > 60 (> 60)
[2017-02-12] MEDS: Acetaminophen 325 MG TABLET PO PRN ×2 (06:08→17:05)
[2017-02-12] MEDS: *HR* Enoxaparin 40 MG/0.4 ML SYRINGE SQ SCH (06:09)
[2017-02-12] MEDS: Insulin LISPRO 300 UNITS/3 ML VIAL SQ SCH ×3 (10:09→17:02)
--- NOTE | 2017-02-12 10:36 | Internal Med Progress Note ---
<Vikas Jung - Last Filed: 02/12/17 14:44> Date of Encounter: 02/12/17 Time of Encounter: 08:30 - Assessment and plan (1) Sepsis Current Visit: Yes Status: Suspected Assessment and plan: Sepsis secondary to LLE Cellulitis, resolved Discontinue Vanc/Zosyn, Start PO Augmentin to prepare for discharge tomorrow Blood cultures negative at day 1 CT Scan was negative for abscess IVF discontinued, continue oral rehydration. Qualifiers: Sepsis type: Streptococcus group A Qualified Code(s): A40.0 - Sepsis due to streptococcus, group A (2) Cellulitis of left lower extremity Current Visit: Yes Status: Acute Assessment and plan: Cellulitis of LLE, improved There is no proximal or distal extension of the cellulitis Pain has improved significantly compared to previous day Edema seems to have decreased. Erythema present but less acute, warmth dissipated CT of LLE negative for abscess Podiatry seen for recommendations on foot care Switch from IV Abx to PO (3) Lactic acidosis Current Visit: Yes Status: Resolved Assessment and plan: Resolved (4) DM (diabetes mellitus), type 2 with renal complications Current Visit: No Status: Chronic Assessment and plan: Diabetes mellitus type 2, stable Platelet glucoses remained in tight control Continue to monitor Qualifiers: Diabetes mellitus complication detail: with chronic kidney disease Diabetes mellitus fpc insulin use: without termination clerk use Chronic kidney disease stage: stage 3 (moderate) Qualified Code(s): E11.22 - Type 2 diabetes mellitus with diabetic chronic kidney disease; N18.3 - Chronic kidney disease, stage 3 (moderate); N18.3 - Chronic kidney disease, stage 3 (moderate) (5) History of CHF (congestive heart failure) Current Visit: No Status: Chronic Assessment and plan: Personal history of CHF Last echo 10/20 shows LVEF 65-70%, mild concentric left ventricular hypertrophy, mild left ventricular diastolic dysfunction The patient appears euvolemic on exam IVF discontinued, continue oral hydration with low sodium diet (6) DVT prophylaxis Current Visit: Yes Status: Acute Assessment and plan: Subcutaneous Lovenox - Subjective Interval history: The patient remained afebrile overnight. She says that she is feeling better for the most part, the pain is depleted pretty considerably. The swelling seems on down, and she feels like it is not as warm as it has been previously. Overall she feels well. - Constitutional Vitals: Temp Pulse Resp BP Pulse Ox 98.3 F 68 16 131/94 98 02/12/17 07:01 02/12/17 07:01 02/12/17 07:01 02/12/17 07:01 02/12/17 07:01 General appearance: Present: A&O X 3, no acute distress, obese, answers questions appropriately Exam: - Head Head exam: Present: atraumatic, normocephalic - Eye Eye exam: Present: PERRL, conjuntiva pink, sclera anicteric Pupils: Present: PERRL - Neck Neck exam general surgery: Present: supple, trachea midline. Absent: lymphadenopathy - Respiratory Respiratory exam: Present: CTAB. Absent: accessory muscle use, rales, rhonchi, wheezes - Cardiovascular Cardiovascular exam: Present: RRR, +S1, +S2. Absent: diastolic murmur, gallop, rubs, systolic murmur - GI/Abdominal GI/Abdominal exam: Present: normal bowel sounds, soft, no peritoneal signs. Absent: distended, tenderness - Extremities Exam Extremities exam: Present: pedal edema, tenderness, warm, radial pulses palpable and symmetrical. Absent: calf tenderness, cyanotic Additional comments: LLE Erythematous and edematous below the knee. Area of infection within bounds of demarcation. Edema appears improved. Warmth significantly improved. - Neurological Exam Neurological exam: Present: CN II-XII intact, oriented X3, no focal deficits. Absent: pronater drift, facial droop, speech deficit - Skin Skin exam: Present: dry, intact Internal Medicine: Result - Labs CBC & Chem 7: 02/12/17 04:30 02/12/17 04:30 Labs: Short CBC 02/12/17 Range/Units 04:30 WBC 4.9 (4.3-11.1) K/mcL Hgb 10.2 L (11.5-15.4) g/dL Hct 31.3 L (35.3-44.9) % Plt Count 144 (140-400) K/mcL Neutrophils # 3.3 (1.6-8.9) K/mcL BMP 02/12/17 04:30 Sodium 136 Potassium 3.8 Chloride 112 H Carbon Dioxide 18 L BUN 16 Creatinine 0.91 Glucose 121 H Calcium 8.8 - ABG Interpretation ABG results: PT/INR, D-dimer PT 13.0 Seconds (9.4-12.1) H 02/09/17 18:47 - Impressions Impressions Lower Extremity CT 02/11/17 10:30 IMPRESSION: Diffuse subcutaneous edema throughout the visualized left lower extremity, most prominent laterally to the mid to distal leg without discrete focal rim enhancing fluid collection to suggest abscess formation. Findings are likely on the basis of cellulitis. No soft tissue gas. No acute bony abnormalities. No CT evidence for osteomyelitis. Stable degenerative changes to left lower extremity joints as above. There is also a trace left knee joint effusion and there is redemonstration of chondrocalcinosis to the knee which could relate to the degenerative changes or could reflect calcium pyrophosphate deposition (CPPD) disease. D/ / 02/11/2017 10:33:03 Geoffrey Davidson MD / charline Interpreting Provider: Geoffrey Davidson MD - VTE Documentation of Mechanical Device: Intermittent pneumatic compression device Consult Discharge Plan - Plan Additional Instructions: pcp requested Referrals: Ace Knowles DO [Primary Care Provider] - <Nam Mckoy - Last Filed: 02/12/17 16:37> Date of Encounter: 02/12/17 - Assessment and plan (1) Cellulitis of left lower extremity Current Visit: Yes Status: Acute (2) Sepsis Current Visit: Yes Status: Suspected Qualifiers: Sepsis type: Streptococcus group A Qualified Code(s): A40.0 - Sepsis due to streptococcus, group A (3) Lymphedema Current Visit: Yes Status: Chronic (4) CHF (congestive heart failure) Current Visit: Yes Status: Chronic Qualifiers: Congestive heart failure type: diastolic Congestive heart failure chronicity: chronic Qualified Code(s): I50.32 - Chronic diastolic (congestive ) heart failure (5) CKD stage 3 secondary to diabetes Current Visit: Yes Status: Chronic (6) Gastroparesis Current Visit: No Status: Chronic (7) Morbid obesity with BMI of 45.0-49.9, adult Current Visit: Yes Status: Chronic (8) Degenerative arthritis Current Visit: Yes Status: Chronic Qualifiers: Osteoarthritis location: knee Osteoarthritis type: other secondary Laterality: bilateral Qualified Code(s): 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 - Constitutional Vitals: Temp Pulse Resp BP Pulse Ox 99.1 F 70 20 151/99 97 02/12/17 16:02 02/12/17 16:02 02/12/17 16:02 02/12/17 16:02 02/12/17 11:38 Internal Medicine: Result - Labs CBC & Chem 7: 02/12/17 04:30 02/12/17 04:30 Labs: Short CBC 02/12/17 Range/Units 04:30 WBC 4.9 (4.3-11.1) K/mcL Hgb 10.2 L (11.5-15.4) g/dL Hct 31.3 L (35.3-44.9) % Plt Count 144 (140-400) K/mcL Neutrophils # 3.3 (1.6-8.9) K/mcL BMP 02/12/17 04:30 Sodium 136 Potassium 3.8 Chloride 112 H Carbon Dioxide 18 L BUN 16 Creatinine 0.91 Glucose 121 H Calcium 8.8 - ABG Interpretation ABG results: PT/INR, D-dimer PT 13.0 Seconds (9.4-12.1) H 02/09/17 18:47 - Attending Attestation I examined this patient and my medical decision-making was reviewed with the Resident Physician on 02/12/17. I agree with the documented findings, disposition and treatment plan as described except to the extent set forth below. Ms Aggarwal is currently admitted for LLE cellulitis. She has had slow improvement with IV abx. She remains moderate to high risk due to potential for worsening clinical status. Ms Aggarwal is feeling OK. No fever or chills. Leg continues to slowly improve. No CP or SOB. Exam Alert. Comfortable Mucus membranes dry Heart reg No wheeze Abd soft LLE continues to slowly improve. I/P 1. Cellulitis 2. Lymphedema
[2017-02-12] MEDS: Ketoconazole 2% CRM 15 GM TUBE TP SCH ×2 (10:57→20:41)
[2017-02-12] MEDS: Gabapentin 300 MG CAPSULE PO SCH ×3 (10:57→20:40)
[2017-02-12] MEDS: Multivit/Ca/Min/Fe/FA 1 TAB TABLET PO SCH (10:57)
[2017-02-12] MEDS: Loratadine 10 MG TABLET PO SCH (10:57)
[2017-02-12] MEDS: Vancomycin 1,250 MG in D5% in Water 250 ML IVPB SCH (10:58)
[2017-02-12] MEDS: traMADol 50 MG TABLET PO PRN ×2 (13:22→21:01)
--- NOTE | 2017-02-12 17:31 | Podiatry Consult Note ---
Date of Encounter: 02/13/17 Time of Encounter: 12:30 Assessment and Plan (1) Tinea pedis of both feet Current visit: Yes Status: Acute Tinea pedis to the interdigital webspaces of toes #3 through #5 left and #4,#5 right. No streaking or ascending cellulitis from the webspaces. Recommend continuation of Ketoconazole Cream to treat the tinea pedis to the interdigital webspaces of toes #3 through #5 left and #4,#5 right daily for 6 weeks. (2) Cellulitis of left lower extremity Current visit: Yes Status: Acute Assessment: Cellulitis of the LLE secondary to swelling / tinea pedis. Cellulitis is resolving. CT scan of LLE negative for fluid collection or abscess. Venous duplex was with in normal limits. Tinea pedis to the interdigital webspaces of toes #3 through #5 left and #4,#5 right. No streaking or ascending cellulitis from the webspaces. WBC: 4.9, Temp: 98.3 Plan: Agree with present antibiotic therapy. Recommend continuation of Ketoconazole Cream to treat the tinea pedis to the interdigital webspaces of toes #3 through #5 left and #4,#5 right daily for 6 weeks. Recommend light compression to the LLE. Patient to f/u in Podiatry clinic with Charanjit Arevalo CNP for diabetic foot care. (3) Onychomycosis Current visit: Yes Status: Acute Toe nails #1 through #5 bilaterally are thick, elongated and mycotic. Patients medical history of DM with neuropathy places her in a high risk category for self care. Recommend patient f/u in Podiatry clinic for diabetic foot care and toe nail debridement. Patient agreeable to plan of care. History of Present Illness HPI: Ms. Aggarwal is a 56 year old female admitted to [facility] for a fever. Podiatry was consulted for LLE cellulitis and tinea pedis. Patient has a medical history significant for arthritis, breast cancer, cardiomyopathy, CHF, COPD, coronary artery disease, diabetes, GERD, GI bleed, hyperlipidemia, hypertension, liver disease, osteoporosis, renal disease, thyroid disease, syncope, venous stasis. Patient states she had a fever that reached 104 degrees on [place] with redness and swelling to the left lower extremity. Patient state she has recurrent tinea pedis to both feet. No known injury or trauma to the LLE. Patient states she has had recurrent cellulitis to the LLE. States her LUE and LLE are always more swollen since she had 16 lymph nodes removed for left breast cancer in 2016. Patient states she wears compression to the LLE intermittently. No c/o fever or chills overnight, no pain to the LLE. Past Med Surg Social Fam HX - Past Medical History Medical history: arthritis, cancer, cardiomyopathy, CHF, COPD, coronary artery disease, diabetes, GERD, GI bleed, hyperlipidemia, hypertension, liver disease, malignancy, osteoporosis, renal disease, thyroid disease, syncope, venous stasis , other Psychiatric history: anxiety, depression, other - Past Surgical History Surgical History: breast surgery, cancer surgery, sinus surgery, other - Social History Smoking Status: Never smoker Smokeless Tobacco Status: No Alcohol use: none Drug use: none - Family History Father Adopted: No Family Member Ethnicity: Non- Living Status: Hx Family Cardiac Disorders: Yes (CO @ 50yrs and 75) Hx Family Respiratory Disorders: No Hx Family Cancer: No Hx Family GI Disorders: No Hx Family Endocrine Disorder: Yes (kidney disease, dialysis) Hx Family Neuromuscular Disorders: No Hx Family Neurologic Disorders: Yes (STROKE) Hx Family HEENT Disorders: No Hx Family Autoimmune Disorders: No Mother Living Status: Still Living Hx Family Cardiac Disorders: No Hx Family Respiratory Disorders: No Hx Family Cancer: Yes (skin cancer) Hx Family GI Disorders: No Hx Family Endocrine Disorder: No Hx Family Neuromuscular Disorders: No Sister Living Status: Still Living Hx Family Cardiac Disorders: No Hx Family Respiratory Disorders: No Hx Family Cancer: Yes (breast) Hx Family GI Disorders: No Hx Family Endocrine Disorder: Yes (diabetes) Hx Family Neuromuscular Disorders: No Hx Family Neurologic Disorders: No Hx Family HEENT Disorders: No Hx Family Autoimmune Disorders: Yes (lupus) Medications and Allergies Metformin [Glucophage] 1,000 mg PO BID 12/04/14 [History] Multivitamin [Multivitamins] 1 cap PO QAM 12/04/14 [History] Ropinirole [Requip] 3 mg PO BID 12/04/14 [History] Metoprolol XL (24 HR) Succ [Toprol Xl] 50 mg PO HS 01/03/16 [History] SitaGLIPtin [Januvia] 100 mg PO DAILY 01/03/16 [History] Gabapentin [Neurontin] 300 mg PO BID 03/21/16 [History] Calcium/D3/Mag Ox/Gas Appliance Mechanic/Victor Manuel/Zn [Caltrate+D3 Plus Mineral Minis] 2 each PO DAILY # 60 tablet 06/20/16 [Rx] Cholecalciferol (D-3) [Vitamin D] 1,000 unit PO DAILY #90 tablet 06/20/16 [Rx] Aspirin 81 mg PO DAILY 08/21/16 [History] Furosemide [Lasix] 40 mg PO DAILY 08/21/16 [History] Loratadine [Claritin] 10 mg PO DAILY 10/20/16 [History] Anastrozole [Arimidex] 1 mg PO DAILY #90 tablet 10/23/16 [Rx] Gabapentin [Neurontin] 600 mg PO HS 01/19/17 [History] Allopurinol [Zyloprim] 300 mg PO DAILY 02/09/17 [History] Ezetimibe [Zetia] 10 mg PO DAILY 02/09/17 [History] Potassium Chloride [K-Tab ER] 20 meq PO DAILY 02/09/17 [History] Ropinirole HCl [Requip] 5 mg PO HS 02/09/17 [History] Tramadol HCl [Ultram] 50 mg PO TID PRN 02/09/17 [History] 3 Allergy/AdvReac Type Severity Reaction Status Date / Time lorazepam [From Ativan] AdvReac Intermediate Agitated Verified 09/27/16 11:13 Oxycodone AdvReac Confusion Verified 02/09/17 20:15 All Systems Reviewed: A 10-system review of systems was performed and is negative for pertinent findings except as documented above in the HPI. Physical Exam - Constitutional Vitals: Temp Pulse Resp BP Pulse Ox 99.1 F 70 20 151/99 97 02/12/17 16:02 02/12/17 16:02 02/12/17 16:02 02/12/17 16:02 02/12/17 11:38 Exam: General: A&Ox3, calm and cooperative Neurological: decreased sensation to both feet as evidenced by the SWMF 5.07. Dermatologic: Toe nails #1 through #5 bilaterally are thick, elongated and mycotic. No evidence of bacterial infection - Skin Skin exam: Present: erythema (to the left lower leg with swelling, erythema has receded from outline. Erythema ascends from the left ankle to the mid duffy, extends to the posterior leg. LLE: no open area, no ulcer, no wound, no blister, no drainage, no fluctuance. Erythema with macerated peeling skin to the interdigital webspaces of toes #3 thorugh #5 left and toes #4, #5 right consistent with tinea pedis, no streaking. Dry skin to both heels, no cracks, no fissures, no erythema.) - Vascular Capillary Refill: less than 3 seconds (Pedal pulses palpable) Results - Labs Result Diagrams: 02/13/17 06:50 02/13/17 06:50 Labs: Abnormal lab results RBC 3.50 M/mcL (3.82-4.97) L 02/12/17 04:30 Hgb 10.2 g/dL (11.5-15.4) L 02/12/17 04:30 Hct 31.3 % (35.3-44.9) L 02/12/17 04:30 RDW 16.4 % (11.5-14.5) H 02/12/17 04:30 Nucleated RBCs/100 WBC 0.2 /100 WBC (0) H 02/09/17 18:47 PT 13.0 Seconds (9.4-12.1) H 02/09/17 18:47 APTT 24.2 Seconds (26.0-36.0) L 02/09/17 18:47 Chloride 112 mEq/L (98-109) H 02/12/17 04:30 Carbon Dioxide 18 mEq/L (19-29) L 02/12/17 04:30 Glucose 121 mg/dL (70-99) H 02/12/17 04:30 POC Glucose 99 (58-89) H 02/12/17 07:13 Phosphorus 1.6 mg/dL (2.3-4.7) L 02/09/17 18:47 Globulin 3.6 g/dL (2.4-3.5) H 02/09/17 18:47 Ur Specific [place] 1.027 (1.010-1.025) H 02/09/17 20:20 Urine Protein 100 mg/dL (Neg-Trace) H 02/09/17 20:20 Urine Microscopic RBC 5-15 per hpf (0-3) H 02/09/17 20:20 Ur Squamous Epith Cells Moderate per lpf (None-Few) H 02/09/17 20:20 H & H 02/12/17 Range/Units 04:30 Hgb 10.2 L (11.5-15.4) g/dL Hct 31.3 L (35.3-44.9) % All other labs normal. Consult Discharge Plan - Plan Additional Instructions: pcp requested Referrals: Ace Knowles DO [Primary Care Provider] -
[2017-02-12] MEDS ORDERED: Aminoglycoside Consult 1 EACH MC ONE (17:44)
--- NOTE | 2017-02-12 18:25 | Electrocardiograph Report ---
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
[2017-02-12] MEDS: Metoprolol XL (24 HR) Succ 50 MG TAB.ER.24H PO SCH (20:39)
[2017-02-12] MEDS: rOPINIRole 3 MG, rOPINIRole 2 MG PO SCH (20:39)
[2017-02-13] MEDS: *HR* Enoxaparin 40 MG/0.4 ML SYRINGE SQ SCH (06:34)
[2017-02-13 06:59] LABS: Eosinophils # 0.1 K/mcL (0.0-0.6); Eosinophils % 2.6 %; Hematocrit 31.3 % (35.3-44.9); Hemoglobin 10.1 g/dL (11.5-15.4); Immature Granulocytes % 3.8 % (0-4); Lymphocytes # 1.1 K/mcL (0.6-4.6); Mean Corpuscular HGB Conc 32.3 g/dL (31.6-35.5); Mean Corpuscular Hemoglobin 29.4 pg (28.0-33.3); Mean Platelet Volume 11.1 fL (9.4-12.4); Monocytes # 0.4 K/mcL (0.0-1.3); Monocytes % 10.5 %; Neutrophils # 2.3 K/mcL (1.6-8.9); Platelet Count 152 K/mcL (140-400); Red Blood Count 3.44 M/mcL (3.82-4.97); Red Cell Distribution Width 16.1 % (11.5-14.5); Segmented Neutrophils % 55.1 %
[2017-02-13 07:12] LABS: BUN/Creatinine Ratio 19 (6-26); Blood Urea Nitrogen 15 mg/dL (7-20); Calcium 8.8 mg/dL (8.6-10.8); Carbon Dioxide 21 mEq/L (19-29); Chloride 112 mEq/L (98-109); Glucose 102 mg/dL (70-99); Osmolality,Calculated 287 (280-300); Potassium 4.2 mEq/L (3.5-4.5); Sodium 138 mEq/L (136-145); eGFR For African Americans > 60 (> 60); eGFR For Non-African Americans > 60 (> 60)
--- NOTE | 2017-02-13 08:05 | Discharge Summary ---
<Vikas Jung - Last Filed: 02/13/17 13:59> Date of Encounter: 02/13/17 Time of Encounter: 08:00 - Discharge Diagnosis (1) Sepsis Priority: Primary Status: Suspected Qualifiers: Sepsis type: Streptococcus group A Qualified Code(s): A40.0 - Sepsis due to streptococcus, group A (2) Cellulitis of left lower extremity Priority: Primary Status: Acute (3) Lactic acidosis Priority: Secondary Status: Resolved (4) DM (diabetes mellitus), type 2 with renal complications Priority: Secondary Status: Chronic Qualifiers: Diabetes mellitus complication detail: with chronic kidney disease Diabetes mellitus senior care insulin use: without regional intermodal truck driver use Chronic kidney disease stage: stage 3 (moderate) Qualified Code(s): E11.22 - Type 2 diabetes mellitus with diabetic chronic kidney disease; N18.3 - Chronic kidney disease, stage 3 (moderate); N18.3 - Chronic kidney disease, stage 3 (moderate) (5) History of CHF (congestive heart failure) Priority: Secondary Status: Chronic (6) DVT prophylaxis Priority: Secondary Status: Acute - Discharge Medications Prescriptions: Amoxicillin/Clavulanate [Augmentin] 875 mg PO BIDWM #5 tablet DiphenhydraMINE [Benadryl] 1 appl TP TID PRN #1 tube PRN Reason: Itching HYDROcodone/Acet 5/325 mg [[place] 5-325 mg] 1 tab PO Q6H PRN #5 tab PRN Reason: Pain Ketoconazole 2% CRM [Nizoral Cream] 1 appl TP BID #1 tube Home Medications: Metformin [Glucophage] 1,000 mg PO BID 12/04/14 [History] Multivitamin [Multivitamins] 1 cap PO QAM 12/04/14 [History] Ropinirole [Requip] 3 mg PO BID 12/04/14 [History] Metoprolol XL (24 HR) Succ [Toprol Xl] 50 mg PO HS 01/03/16 [History] SitaGLIPtin [Januvia] 100 mg PO DAILY 01/03/16 [History] Gabapentin [Neurontin] 300 mg PO BID 03/21/16 [History] Calcium/D3/Mag Ox/Ordnance Mechanic/Victor Manuel/Zn [Caltrate+D3 Plus Mineral Minis] 2 each PO DAILY # 60 tablet 06/20/16 [Rx] Cholecalciferol (D-3) [Vitamin D] 1,000 unit PO DAILY #90 tablet 06/20/16 [Rx] Aspirin 81 mg PO DAILY 08/21/16 [History] Furosemide [Lasix] 40 mg PO DAILY 08/21/16 [History] Loratadine [Claritin] 10 mg PO DAILY 10/20/16 [History] Anastrozole [Arimidex] 1 mg PO DAILY #90 tablet 10/23/16 [Rx] Gabapentin [Neurontin] 600 mg PO HS 01/19/17 [History] Allopurinol [Zyloprim] 300 mg PO DAILY 02/09/17 [History] Ezetimibe [Zetia] 10 mg PO DAILY 02/09/17 [History] Potassium Chloride [K-Tab ER] 20 meq PO DAILY 02/09/17 [History] Ropinirole HCl [Requip] 5 mg PO HS 02/09/17 [History] Tramadol HCl [Ultram] 50 mg PO TID PRN 02/09/17 [History] Amoxicillin/Clavulanate [Augmentin] 875 mg PO BIDWM #5 tablet 02/13/17 [Rx] DiphenhydraMINE [Benadryl] 1 appl TP TID PRN #1 tube 02/13/17 [Rx] HYDROcodone/Acet 5/325 mg [[place] 5-325 mg] 1 tab PO Q6H PRN #5 tab 02/13/17 [Rx] Ketoconazole 2% CRM [Nizoral Cream] 1 appl TP BID #1 tube 02/13/17 [Rx] Allergies/Adverse Reactions: 3 Allergy/AdvReac Type Severity Reaction Status Date / Time lorazepam [From Ativan] AdvReac Intermediate Agitated Verified 09/27/16 11:13 Oxycodone AdvReac Confusion Verified 02/09/17 20:15 Procedures/tests Complete & Pending: Procedures Performed prior 72 hours Category Date Time Status CT lower leg LT w con [CT] Routine Cat Scan 02/11/17 10:30 Completed EV venous imaging LE LT Routine Y 02/10/17 11:52 Completed Date of admission: 02/10/17 06:09 Primary care physician: Ace Knowles Consults: 02/12/17 08:37 Consult to Podiatry [CONS] Routine Consulting Provider: [facility] Reason for Consult: LLE Cellulitis with Tinea Pedis Time Notified: 08:37 Call Completed: Yes Discharging clinician: Blayne Kessler Anticipated date of discharge: 02/13/17 - Patient Status Disposition: Home, Self-Care Condition: Good Functional capacity at discharge: independent ambulation Overall status at discharge: patient is progressing back to baseline - Discharge Instructions Instructions: Hydrocodone/Acetaminophen (By mouth), Diphenhydramine (By mouth) , Amoxicillin/Clavulanate Potassium (By mouth), Heart Failure (DC), Cellulitis ( DC), Cellulitis (GEN), Diabetes Mellitus Type 2 in Adults (DC), Sepsis (DC), Pneumonia (DC) Follow Up With: Charanjit Arevalo CNP [Partnered Physician] - 02/15/17 Ace Knowles DO [Primary Care Provider] - Additional Instructions: pcp requested Follow-up with primary care within 1-2 weeks Continue Augmentin 2 days posthospitalization Use ketoconazole cream on feet as directed by podiatry Use light compression stockings as directed by wound care nurse - Diet and Activity Activity: increase activity as tolerated Diet: diabetic diet Hospital course: Ms. Aggarwal is a 56 year old female with a history of breast cancer with active chemotherapy, COPD, hypertension, CHF, diabetes, and recurrent cellulitis. She presented to the emergency department with weakness he refers chills for 2 days duration associated with swelling and redness of the left leg. Significantly, the patient does have history of recurrent cellulitis in this leg, she mentions that she has had this approximately 4 times in one year. In the emergency room the patient was found to be tachycardic with a fever as high as 102. She is admitted to the medical floor for management of sepsis secondary to left leg cellulitis with IV antibiotics as well as IV fluid. She continued to have pain in her left lower leg with edema extending proximally past the knee, and also complained of deep pain in her left thigh and behind the knee. Venous Doppler ultrasound demonstrated no DVT, CT of the lower extremity demonstrated no deep abscess. The patient continued to improve over her hospital course, and was transitioned to oral antibiotics which continued her improvment. Podiatry examine the patient suggested the addition of ketoconazole cream to treat tinea pedis, also occluded with current treatment. The patient will be discharged on home regimen with oral antibiotics and pain management. - Time Spent with Patient Total time spent providing and/or coordinating discharge services: - Constitutional Vitals: Temp Pulse Resp BP Pulse Ox 98.1 F 72 15 152/91 97 02/13/17 08:00 02/13/17 08:00 02/13/17 08:00 02/13/17 08:00 02/13/17 08:00 General appearance: Present: A&O X 3, no acute distress, obese, answers questions appropriately Exam: - Head Head exam: Present: atraumatic, normocephalic - Eye Eye exam: Present: PERRL, conjuntiva pink, sclera anicteric Pupils: Present: PERRL - Neck Neck exam general surgery: Present: supple, trachea midline. Absent: lymphadenopathy - Respiratory Respiratory exam: Present: CTAB. Absent: accessory muscle use, rales, rhonchi, wheezes - Cardiovascular Cardiovascular exam: Present: RRR, +S1, +S2. Absent: diastolic murmur, gallop, rubs, systolic murmur - GI/Abdominal GI/Abdominal exam: Present: normal bowel sounds, soft, no peritoneal signs. Absent: distended, tenderness - Extremities Exam Extremities exam: Present: pedal edema, tenderness, warm, radial pulses palpable and symmetrical. Absent: calf tenderness, cyanotic Additional comments: There is mild erythema within previous day's demarcation, signficantly improved from prior. Warmth has resolved. Edema continues to improve. - Neurological Exam Neurological exam: Present: CN II-XII intact, oriented X3, no focal deficits. Absent: pronater drift, facial droop, speech deficit - Skin Skin exam: Present: dry, intact - VTE Documentation of Mechanical Device: Intermittent pneumatic compression device <Blayne Kessler P - Last Filed: 02/19/17 21:16> Date of Encounter: 02/19/17 Procedures/tests Complete & Pending: Procedures Performed prior 72 hours Category Date Time Status CT lower leg LT w con [CT] Routine Cat Scan 02/11/17 10:30 Completed Date of admission: 02/10/17 06:09 Primary care physician: Ace Knowles Consults: 02/12/17 08:37 Consult to Podiatry [CONS] Routine Consulting Provider: Pod[facility]ry [facility] Reason for Consult: LLE Cellulitis with Tinea Pedis Time Notified: 08:37 Call Completed: Yes 02/13/17 11:33 Consult to Wound Care [CONS] Routine Reason for Consult: Recurrent LLE Cellulitis Time Notified: 11:36 Call Completed: No Hospital course: Ms. Aggarwal is a 56 year old female - Time Spent with Patient Total time spent providing and/or coordinating discharge services: - Constitutional Vitals: Temp Pulse Resp BP Pulse Ox 98.3 F 68 20 169/98 96 02/13/17 11:18 02/13/17 11:18 02/13/17 11:18 02/13/17 11:18 02/13/17 11:18 - Attending Attestation I examined this patient and my medical decision-making was reviewed with the Resident Physician. I agree with the documented findings, disposition and treatment plan as described except to the extent set forth below. Patient seen and examined. Chart reviewed. 56-year-old female admitted with left lower limb cellulitis. Background history of diabetes, morbid obesity, hypertension. Seen by podiatry. No evidence of DVT. Patient is presently on oral antibiotics. There is a good chance that this patient might come back to hospital for possible readmission. Above discussed with the patient at length. Patient still insists to go home. Plan: Patient can go home today. Patient should have a early follow-up with PCP/wound care/podiatry.
[2017-02-13] MEDS: Multivit/Ca/Min/Fe/FA 1 TAB TABLET PO SCH (10:17)
[2017-02-13] MEDS: Loratadine 10 MG TABLET PO SCH (10:17)
[2017-02-13] MEDS: Ketoconazole 2% CRM 15 GM TUBE TP SCH (10:18)
[2017-02-13] MEDS: Gabapentin 300 MG CAPSULE PO SCH ×2 (10:18→16:21)
[2017-02-13] MEDS: traMADol 50 MG TABLET PO PRN ×2 (10:22→16:22)
[2017-02-13 11:27] VITALS: BP 169/98
[2017-02-13] MEDS ORDERED: FLUARIX QUAD 2017-18 36MOS UP/PF 0.5 ML SYRINGE IM ONE (15:24)
== END 2017-02-13 17:45 | disposition home or self-care (01) | DRG 872 ==
LOC: EMEROO 17:11 → 2NENU 17:11 → SUATTDRO 02-10 06:09
PROVIDERS: ADMIT Pediatrics; ATTEND Internal Medicine

== ENCOUNTER 2017-07-16 21:51 | Inpatient (IN) ==
[2017-07-17] MEDS ORDERED: methylPREDNISolone 125 MG/2 ML VIAL IVP ONE (00:42)
--- NOTE | 2017-07-17 00:56 | Emergency Department Note ---
START Narrative - START START: I examined this patient and my medical decision-making was reviewed with the Resident Physician. I agree with the documented findings, disposition and treatment plan as described except to the extent set forth below. 57 year old syeda presents with a genralize rash that is located on her LUE and upper chest and extends into her neck and face and around her upper back. She states the warthm and ertyhmatous changes started over the past 24 hours. PAinet states taht she has had cellulitis in the past and this simliar to those issues then. She denies any allegic reaction or difficutly in breathing, throat/ tongue swelling or starting any new medications/detergents/foods. WE will do sepsis workup but this is likely a cellulitis possible MRSA, but appears to be erysipleas in appearnce. Likely admit to medicnie.
[2017-07-17] MEDS: 0.9 % Sodium Chloride 1,000 ML IVC SCH ×3 (00:59→19:33)
[2017-07-17] MEDS ORDERED: Piperacillin/Tazobactam 3.375 GM in 0.9 % Sodium Chloride Mini Bag 100 ML IVPB ONE (01:30)
[2017-07-17 01:39] LABS: Basophils % 0.5 %; Eosinophils % 0.6 %; Hematocrit 36.8 % (35.3-44.9); Hemoglobin 12.2 g/dL (11.5-15.4); Immature Granulocytes % 0.5 % (0-4); Lymphocytes % 7.6 %; Mean Corpuscular HGB Conc 33.2 g/dL (31.6-35.5); Mean Corpuscular Volume 87.6 fL (83.0-100.0); Mean Platelet Volume 11.4 fL (9.4-12.4); Platelet Count 143 K/mcL (140-400); Red Cell Distribution Width 16.4 % (11.5-14.5); Segmented Neutrophils % 80.8 %
[2017-07-17 01:40] LABS: Eosinophils # 0.1 K/mcL (0.0-0.6); Lymphocytes # 0.6 K/mcL (0.6-4.6); Monocytes # 0.8 K/mcL (0.0-1.3); Neutrophils # 6.5 K/mcL (1.6-8.9)
[2017-07-17 01:53] LABS: INR 1.5; Prothrombin Time 15.8 Seconds (9.4-12.1)
[2017-07-17 01:56] LABS: Activated Partial Thrombo Time 27.5 Seconds (26.0-36.0)
[2017-07-17 02:07] LABS: Bilirubin,Urine Negative (Negative); Blood,Urine Negative (Negative); Clarity,Urine Clear (Clear); Color,Urine Yellow (Yellow); Glucose,Urine (UA) Normal (Normal); Ketones,Urine Negative (Negative); Leukocyte Esterase,Urine Negative (Negative); Nitrite,Urine Negative (Negative); PH,Urine 6.5 pH Units (5.0-8.0); Protein,Urine 30 mg/dL (Neg-Trace); Specific Gravity,Urine 1.022 (1.010-1.025); Urobilinogen,Urine Normal (Normal)
[2017-07-17 02:10] LABS: Bacteria,Urine None Seen per hpf (None-Few); Hyaline Casts,Urine None Seen per lpf (None-Few); Squamous Epithelial Cell,Urine Moderate per lpf (None-Few); WBC,Urine 0-3 per hpf (0-3)
[2017-07-17 02:15] LABS: Alanine Aminotransferase 26 Units/L (7-52); Albumin 4.3 g/dL (3.5-5.7); Albumin/Globulin Ratio 1.5 (1.1-2.2); Alkaline Phosphatase 57 Units/L (34-104); Aspartate Amino Transferase 21 Units/L (13-39); BUN/Creatinine Ratio 27 (6-26); Bilirubin,Direct 0.1 mg/dL (0.0-0.2); Bilirubin,Indirect 0.6 mg/dL (0.0-1.2); Bilirubin,Total 0.7 mg/dL (0.3-1.0); Blood Urea Nitrogen 27 mg/dL (6-20); Carbon Dioxide 22 mEq/L (23-29); Chloride 105 mEq/L (98-107); Globulin 2.9 g/dL (2.4-3.5); Glucose 128 mg/dL (70-105); Lipase 30 Units/L (11-82); Magnesium 1.8 mg/dL (1.6-2.6); Osmolality,Calculated 293 (280-300); Phosphorous 2.6 mg/dL (2.7-4.5); Potassium 3.8 mEq/L (3.5-5.1); Sodium 138 mEq/L (136-145); Total Protein 7.2 g/dL (6.4-8.9); Troponin I < 0.03 ng/mL (< 0.04); eGFR For African Americans > 60 (> 60); eGFR For Non-African Americans 58 (> 60)
--- NOTE | 2017-07-17 02:19 | Emergency Department Note ---
Disposition Clinical Impression: Cellulitis Qualifiers: Site of cellulitis: extremity Site of cellulitis of extremity: upper extremity Laterality: left Qualified Code(s): L03.114 - Cellulitis of left upper limb Disposition: Home, Self-Care Condition: Fair Referrals: Ace Knowles DO [Primary Care Provider] - Forms: ED Satisfaction Letter Time of Disposition: 02:33 General Adult HPI - General Chief complaint: ED Extremity Injury, Upper Stated complaint: "CELLULITIS OR DVT RIGHT ARM" Time Seen by Provider: 07/17/17 00:13 Source: patient Limitations: no limitations Nursing Notes Reviewed: Yes Vital Signs Reviewed: Yes - History of Present Illness HPI Narrative: 57-year-old female presents to the emergency department with left arm and chest and back rash started approximately 2 days ago and has worsened over the course of today. Said that she does feel very warm she does have a history of cellulitis and has had to be admitted multiple times for MRSA cellulitis. 2 IV antibiotics. Patient says this is similar to last time this rash has never occurred in her upper arm normally toys in her lower legs. Patient is on Coumadin. Patient otherwise is having no complaints including no nausea vomiting, chest pain, shortness of breath, back pain, pain with urination, change in bowel movements, back pain, neck pain, pain or tailing on the arms or legs or any generalized weakness. Pain Scale: 8 - Related Data Home Medications Medication Instructions Recorded Confirmed Metformin [Glucophage] 500 mg PO BID 12/04/14 06/22/17 Multivitamin [Multivitamins] 1 cap PO QAM 12/04/14 06/22/17 Ropinirole [Requip] 4 mg PO BID 12/04/14 06/22/17 Metoprolol XL (24 HR) Succ [Toprol 50 mg PO HS 01/03/16 06/22/17 Xl] SitaGLIPtin [Januvia] 100 mg PO DAILY 01/03/16 06/22/17 Gabapentin [Neurontin] 300 mg PO BID 03/21/16 06/22/17 Aspirin 81 mg PO DAILY 08/21/16 06/22/17 Furosemide [Lasix] 40 mg PO DAILY 08/21/16 06/22/17 Loratadine [Claritin] 10 mg PO DAILY PRN 10/20/16 06/22/17 Gabapentin [Neurontin] 600 mg PO HS 01/19/17 06/22/17 Ezetimibe [Zetia] 10 mg PO DAILY 02/09/17 06/22/17 Potassium Chloride [K-Tab ER] 20 meq PO DAILY 02/09/17 06/22/17 Ropinirole HCl [Requip] 5 mg PO HS 02/09/17 06/22/17 Tramadol HCl [Ultram] 50 mg PO TID PRN 02/09/17 06/22/17 predniSONE [PredniSONE] 10 mg PO DAILY 04/19/17 06/22/17 Ketoconazole 2% CRM [Nizoral Cream] 1 appl TP BID PRN 06/22/17 06/22/17 Previous Rx's Medication Instructions Recorded Calcium/D3/Mag Ox/Corner Bead Operator/Victor Manuel/Zn 2 each PO DAILY #60 tablet 06/20/16 [Caltrate+D3 Plus Mineral Minis] Cholecalciferol (D-3) [Vitamin D] 1,000 unit PO DAILY #90 tablet 06/20/16 Anastrozole [Arimidex] 1 mg PO DAILY #90 tablet 10/23/16 Allergies Allergy/AdvReac Type Severity Reaction Status Date / Time lorazepam [From Ativan] AdvReac Intermediate Agitated Verified 06/22/17 14:15 Oxycodone AdvReac Confusion Verified 06/22/17 14:15 Review of Systems: 10 point review of systems done and negative unless otherwise stated in the history of present illness. All systems ED: reviewed and negative except as stated. Review of Systems: As Per HPI Past Medical History - Past Medical History Attestation: Yes The following information was validated with the patient. Source: patient Medical history: Reports: arthritis, cancer, cardiomyopathy, CHF, COPD, coronary artery disease, diabetes, GERD, GI bleed, hyperlipidemia, hypertension , liver disease, malignancy, osteoporosis, renal disease, thyroid disease, syncope, venous stasis, other Surgical history: Reports: breast surgery, cancer surgery, sinus surgery, other Psychiatric history: Reports: anxiety, depression, other - Social History Smoking Status: Never smoker Smokeless Tobacco Status: No Alcohol use: Reports: none Drug use: Reports: none Physical Exam - General Limitations: no limitations General appearance: alert, in no apparent distress - Head Head exam: atraumatic, normocephalic, normal inspection - Eye Eye exam: Present: normal appearance, PERRL, EOMI - ENT ENT exam: normal exam, normal oropharynx, mucous membranes moist - Neck Neck exam: Present: normal inspection, full ROM, trachea midline - Chest Chest inspection: Present: normal inspection, symmetric chest wall rise - Respiratory Respiratory exam: Present: normal lung sounds bilaterally - Cardiovascular Cardiovascular exam: Present: regular rate, normal rhythm, normal heart sounds - Abdominal Exam Abdominal exam: Present: soft, Non-Tender. Absent: tenderness, distention, guarding, rebound, rigidity - Extremities Exam Extremities exam: Present: normal inspection, full ROM. Absent: tenderness, pedal edema - Expanded Lower Extremity Exam Neurovascular/Tendon exam: Present: normal capillary refill. Absent: pulse deficit, motor deficit, sensory deficit, tendon deficit - Back Exam Back exam: Present: normal inspection, full ROM. Absent: tenderness, CVA tenderness (R), CVA tenderness (L) - Neurological Exam Neurological exam: Present: alert, oriented X3 - Skin Skin exam: Present: warm, dry, intact, normal color, rash (Erythematous rash nonpruritic it is blanchable along the left arm into the left chest and left back. Warm to touch no open sores.) Course Course Narrative: 57-year-old female presented with rash. We will get blood cultures as well as CBC, CMP, urinalysis and chest x-ray as well as lactate. Due to patient's history of cellulitis will also start patient on Zosyn and vancomycin for possible cellulitis. Patient most likely will be admitted. - Consultations Consultation #1: Spoke with Dr. Pereira the hospitalist who agreed to admit the patient to their service patient. Patient is admitted in stable condition. Time: 02:31 Vital Signs Temperature 99.4 F 07/16/17 22:04 Pulse Rate 92 07/16/17 22:04 Respiratory Rate 18 07/16/17 22:04 Blood Pressure 165/105 07/16/17 22:04 O2 Sat by Pulse Oximetry 100 07/16/17 22:04 Temperature 99.4 F 07/16/17 22:04 Pulse Rate 92 07/16/17 22:04 Respiratory Rate 18 07/16/17 22:04 Blood Pressure 165/105 07/16/17 22:04 O2 Sat by Pulse Oximetry 95 07/17/17 01:01 Oxygen Delivery Oxygen Delivery Room Air Medical Decision Making - MDM Narrative Medical decision making narrative: 57-year-old female presented to the emergency department with cellulitis. We did start vancomycin and Zosyn on her. All labs came back normal including a normal lactate chest x-ray also was normal. Due to patient's history of having skin infections as well as the spreading of this infection we felt that admission with IV antibiotics was necessary and patient agreed. I spoke with the hospitalist who agreed to admit the patient to their service and was happy with our choice and antibiotics. Patient also had blood cultures drawn which we followed up by the admitting team. Patient is currently in stable condition and admitted at this time. Chest X-Ray 07/17/17 00:42 IMPRESSION: Negative limited portable chest. D/ / Johnathan Markham MD / Johnathan Markham MD Interpreting Provider: Johnathan Markham MD - Medical Records Medical records reviewed: Yes I reviewed the patient's medical records. - Lab Data Lab results reviewed: Yes I reviewed the patient's lab results. Result diagrams: 07/17/17 01:31 07/17/17 01:31 Lab Results 07/17/17 07/17/17 07/17/17 Range/Units 01:31 01:31 01:31 WBC 8.0 (4.3-11.1) K/mcL RBC 4.20 (3.82-4.97) M/mcL Hgb 12.2 (11.5-15.4) g/dL Hct 36.8 (35.3-44.9) % MCV 87.6 (83.0-100.0) fL MCH 29.0 (28.0-33.3) pg MCHC 33.2 (31.6-35.5) g/dL RDW 16.4 H (11.5-14.5) % Plt Count 143 (140-400) K/mcL MPV 11.4 (9.4-12.4) fL Immature Gran % 0.5 (0-4) % Seg Neutrophils % 80.8 % Lymphocytes % 7.6 % Monocytes % 10.0 % Eosinophils % 0.6 % Basophils % 0.5 % Neutrophils # 6.5 (1.6-8.9) K/mcL Lymphocytes # 0.6 (0.6-4.6) K/mcL Monocytes # 0.8 (0.0-1.3) K/mcL Eosinophils # 0.1 (0.0-0.6) K/mcL Basophils # 0.0 (0.0-0.2) K/mcL PT 15.8 H (9.4-12.1) Seconds INR 1.5 APTT 27.5 (26.0-36.0) Seconds Sodium 138 (136-145) mEq/L Potassium 3.8 (3.5-5.1) mEq/L Chloride 105 (98-107) mEq/L Carbon Dioxide 22 L (23-29) mEq/L BUN 27 H (6-20) mg/dL Creatinine 0.99 (0.60-1.20) mg/dL Est GFR ( Amer) > 60 (> 60) Est GFR (Non-Af Amer) 58 L (> 60) BUN/Creatinine Ratio 27 H (6-26) Glucose 128 H (70-105) mg/dL Calculated Osmolality 293 (280-300) Lactic Acid (0.5-2.2) mmol/L Calcium 10.0 (8.6-10.3) mg/dL Phosphorus 2.6 L (2.7-4.5) mg/dL Magnesium 1.8 (1.6-2.6) mg/dL Total Bilirubin 0.7 (0.3-1.0) mg/dL Direct Bilirubin 0.1 (0.0-0.2) mg/dL Indirect Bilirubin 0.6 (0.0-1.2) mg/dL AST 21 (13-39) Units/L ALT 26 (7-52) Units/L Alkaline Phosphatase 57 (34-104) Units/L Troponin I < 0.03 (< 0.04) ng/mL Serum Total Protein 7.2 (6.4-8.9) g/dL Albumin 4.3 (3.5-5.7) g/dL Globulin 2.9 (2.4-3.5) g/dL Albumin/Globulin Ratio 1.5 (1.1-2.2) Lipase 30 (11-82) Units/L Urine Color (Yellow) Urine Clarity (Clear) Urine pH (5.0-8.0) pH Units Ur Specific [place] (1.010-1.025) Urine Protein (Neg-Trace) mg/dL Urine Glucose (UA) (Normal) mg/dL Urine Ketones (Negative) mg/dL Urine Blood (Negative) Urine Nitrite (Negative) Urine Bilirubin (Negative) Urine Urobilinogen (Normal) mg/dL Ur Leukocyte Esterase (Negative) Urine Microscopic RBC (0-3) per hpf Urine Microscopic WBC (0-3) per hpf Ur Squamous Epith Cells (None-Few) per lpf Urine Bacteria (None-Few) per hpf Hyaline Casts (None-Few) per lpf Ur Culture Indicated? (NO) 07/17/17 07/17/17 Range/Units 01:31 02:01 WBC (4.3-11.1) K/mcL RBC (3.82-4.97) M/mcL Hgb (11.5-15.4) g/dL Hct (35.3-44.9) % MCV (83.0-100.0) fL MCH (28.0-33.3) pg MCHC (31.6-35.5) g/dL RDW (11.5-14.5) % Plt Count (140-400) K/mcL MPV (9.4-12.4) fL Immature Gran % (0-4) % Seg Neutrophils % % Lymphocytes % % Monocytes % % Eosinophils % % Basophils % % Neutrophils # (1.6-8.9) K/mcL Lymphocytes # (0.6-4.6) K/mcL Monocytes # (0.0-1.3) K/mcL Eosinophils # (0.0-0.6) K/mcL Basophils # (0.0-0.2) K/mcL PT (9.4-12.1) Seconds INR APTT (26.0-36.0) Seconds Sodium (136-145) mEq/L Potassium (3.5-5.1) mEq/L Chloride (98-107) mEq/L Carbon Dioxide (23-29) mEq/L BUN (6-20) mg/dL Creatinine (0.60-1.20) mg/dL Est GFR ( Amer) (> 60) Est GFR (Non-Af Amer) (> 60) BUN/Creatinine Ratio (6-26) Glucose (70-105) mg/dL Calculated Osmolality (280-300) Lactic Acid 2.1 (0.5-2.2) mmol/L Calcium (8.6-10.3) mg/dL Phosphorus (2.7-4.5) mg/dL Magnesium (1.6-2.6) mg/dL Total Bilirubin (0.3-1.0) mg/dL Direct Bilirubin (0.0-0.2) mg/dL Indirect Bilirubin (0.0-1.2) mg/dL AST (13-39) Units/L ALT (7-52) Units/L Alkaline Phosphatase (34-104) Units/L Troponin I (< 0.04) ng/mL Serum Total Protein (6.4-8.9) g/dL Albumin (3.5-5.7) g/dL Globulin (2.4-3.5) g/dL Albumin/Globulin Ratio (1.1-2.2) Lipase (11-82) Units/L Urine Color Yellow (Yellow) Urine Clarity Clear (Clear) Urine pH 6.5 (5.0-8.0) pH Units Ur Specific [place] 1.022 (1.010-1.025) Urine Protein 30 H (Neg-Trace) mg/dL Urine Glucose (UA) Normal (Normal) mg/dL Urine Ketones Negative (Negative) mg/dL Urine Blood Negative (Negative) Urine Nitrite Negative (Negative) Urine Bilirubin Negative (Negative) Urine Urobilinogen Normal (Normal) mg/dL Ur Leukocyte Esterase Negative (Negative) Urine Microscopic RBC 5-15 H (0-3) per hpf Urine Microscopic WBC 0-3 (0-3) per hpf Ur Squamous Epith Cells Moderate H (None-Few) per lpf Urine Bacteria None Seen (None-Few) per hpf Hyaline Casts None Seen (None-Few) per lpf Ur Culture Indicated? NO (NO) - Radiology Data Radiology results reviewed: Yes I reviewed the patient's radiology results. - EKG Data EKG #1 EKG attestation: Yes I reviewed and interpreted this EKG. EKG results narrative: EKG done at 0 1:15 reviewed by myself and attending shows normal sinus rhythm at a rate of 94, MO interval 164, QRS 92, QTc 389 with a normal axis. No acute ST changes no acute T-wave changes or signs of ischemia. No signs of heart strain but there is signs of left ventricle hypertrophy no signs of heart block or WPW/Brugada syndrome. EKG is unchanged when compared with old one and S.B.A.R. - S.B.A.RSarah Transition of Care: With the hospitalist, Dr. Pereira Situation: Demographics, MOA Background: Presenting Complaint, Relevant PMH, Meds, & Allergies Assessment: Vital Signs, Course and respsone to treatment, Exam Concerns, Patient/Family Expectation, Pertinant Lab Results, Outstanding Labs Recommendation: Barrier(s) to disposition, Recommendation based on pending studies, treatments, or consults S.B.A.R. Report Given to: Dr. Randall NaikAKath Repor Time: 02:34
--- NOTE | 2017-07-17 04:04 | Internal Med History&Physical ---
Date of Encounter: 07/17/17 Time of Encounter: 03:30 Assessment and Plan (1) Cellulitis Current visit: Yes Status: Acute Possible Cellulitis of the left upper extremity. Atypical features but warm to touch. Will continue current antibiotics. Other possibilities include allergic reaction. Although no changes to medications. Trial of antihistamines. Moderate risk for complications. Given her prior history of MRSA, will continue vancomycin. Qualifiers: Site of cellulitis: extremity Site of cellulitis of extremity: upper extremity Laterality: left Qualified Code(s): L03.114 - Cellulitis of left upper limb (2) CKD stage 3 secondary to diabetes Current visit: Yes Status: Chronic Creatinine 0.99. Better than her baseline. Follow renal function closely. (3) DM (diabetes mellitus), type 2 with renal complications Current visit: Yes Status: Chronic Monitor blood sugars. Sliding scale insulin. Diabetic diet. Qualifiers: Diabetes mellitus long term acute care registered nurse insulin use: without halfway use Diabetes mellitus complication detail: with chronic kidney disease Chronic kidney disease stage: stage 3 (moderate) Qualified Code(s): E11.22 - Type 2 diabetes mellitus with diabetic chronic kidney disease; N18.3 - Chronic kidney disease, stage 3 (moderate); N18.3 - Chronic kidney disease, stage 3 (moderate) (4) Lymphedema Current visit: No Status: Chronic Chronic lymphedema present in left upper extremity related to prior history of lymph node dissection for breast cancer. (5) DVT prophylaxis Current visit: Yes Status: Acute With subcutaneous heparin Internal Medicine - H&P: HPI Chief complaint: Swelling and redness involving the left upper extremity Admitted From: Emergency Dept Plans for Post Hospital Care: Home History of present illness: Ms. Aggarwal is a 57 year old female patient with a history of prior left breast cancer status post left mastectomy with lymph node resection presented to the ER with complaints of swelling, pain and erythema involving her left upper extremity. She first noticed this yesterday morning and it has been progressively getting worse. She complains of tenderness in her left axilla. She is also been having fever at home. No chills or night sweats. She denies any open wounds. She reports that she has previously been diagnosed with MRSA. She says that cultures were done here but review of records here did not show any positive Cultures for MRSA. She reports that she had culture positive for MRSA at [facility] before this. She has not had any recent hospitalizations. She does have history of diabetes and high blood pressure. Her blood sugars are usually well controlled. She has a scratch emily on her right upper cheek which she reports was while she was playing with her granddaughter. Past Med Surg Social Fam HX - Past Medical History Attestation: Yes The following information was validated with the patient. Source: patient Medical history: arthritis, cancer, cardiomyopathy, CHF, COPD, coronary artery disease, diabetes, GERD, GI bleed, hyperlipidemia, hypertension, liver disease, malignancy, osteoporosis, renal disease, thyroid disease, syncope, venous stasis , other Psychiatric history: anxiety, depression, other - Past Surgical History Surgical History: breast surgery, cancer surgery, sinus surgery, other - Social History Smoking Status: Never smoker Smokeless Tobacco Status: No Alcohol use: none Drug use: none - Family History Father Adopted: No Family Member Ethnicity: Non- Living Status: Hx Family Cardiac Disorders: Yes (AR @ 50yrs and 75) Hx Family Respiratory Disorders: No Hx Family Cancer: No Hx Family GI Disorders: No Hx Family Endocrine Disorder: Yes (kidney disease, dialysis) Hx Family Neuromuscular Disorders: No Hx Family Neurologic Disorders: Yes (STROKE) Hx Family HEENT Disorders: No Hx Family Autoimmune Disorders: No Mother Living Status: Still Living Hx Family Cardiac Disorders: No Hx Family Respiratory Disorders: No Hx Family Cancer: Yes (skin cancer) Hx Family GI Disorders: No Hx Family Endocrine Disorder: No Hx Family Neuromuscular Disorders: No Sister Living Status: Still Living Hx Family Cardiac Disorders: No Hx Family Respiratory Disorders: No Hx Family Cancer: Yes (breast) Hx Family GI Disorders: No Hx Family Endocrine Disorder: Yes (diabetes) Hx Family Neuromuscular Disorders: No Hx Family Neurologic Disorders: No Hx Family HEENT Disorders: No Hx Family Autoimmune Disorders: Yes (lupus) Internal Medicine - H&P: Meds Metformin [Glucophage] 500 mg PO BID 12/04/14 [History] Multivitamin [Multivitamins] 1 cap PO QAM 12/04/14 [History] Ropinirole [Requip] 4 mg PO BID 12/04/14 [History] Metoprolol XL (24 HR) Succ [Toprol Xl] 50 mg PO HS 01/03/16 [History] SitaGLIPtin [Januvia] 100 mg PO DAILY 01/03/16 [History] Gabapentin [Neurontin] 300 mg PO BID 03/21/16 [History] Calcium/D3/Mag Ox/Laborer Demolition/Victor Manuel/Zn [Caltrate+D3 Plus Mineral Minis] 2 each PO DAILY # 60 tablet 06/20/16 [Rx] Cholecalciferol (D-3) [Vitamin D] 1,000 unit PO DAILY #90 tablet 06/20/16 [Rx] Aspirin 81 mg PO DAILY 08/21/16 [History] Furosemide [Lasix] 40 mg PO DAILY 08/21/16 [History] Loratadine [Claritin] 10 mg PO DAILY PRN 10/20/16 [History] Anastrozole [Arimidex] 1 mg PO DAILY #90 tablet 10/23/16 [Rx] Gabapentin [Neurontin] 600 mg PO HS 01/19/17 [History] Ezetimibe [Zetia] 10 mg PO DAILY 02/09/17 [History] Potassium Chloride [K-Tab ER] 20 meq PO DAILY 02/09/17 [History] Ropinirole HCl [Requip] 5 mg PO HS 02/09/17 [History] Tramadol HCl [Ultram] 50 mg PO TID PRN 02/09/17 [History] predniSONE [PredniSONE] 10 mg PO DAILY 04/19/17 [History] Ketoconazole 2% CRM [Nizoral Cream] 1 appl TP BID PRN 06/22/17 [History] 3 Allergy/AdvReac Type Severity Reaction Status Date / Time lorazepam [From Ativan] AdvReac Intermediate Agitated Verified 06/22/17 14:15 Oxycodone AdvReac Confusion Verified 06/22/17 14:15 All Systems PM: A 10-system review of systems was performed and is negative for pertinent findings except as documented above in the HPI. - Constitutional Constitutional: fever(s), no chills, no night sweats - EENT Eyes: no change in vision, no discharge, no pain, no photophobia Ears: no ear discharge, no ear pain, no tinnitus Nose, mouth and throat: no dysphagia, no nasal discharge, no neck pain, no sore throat - Cardiovascular Cardiovascular ROS IM: no chest pain, no diaphoresis, no dyspnea, no lightheadedness, no palpitations, no syncope - Respiratory Respiratory: no cough, no dyspnea, no wheezing, no excessive phlegm production - Gastrointestinal Gastrointestinal: no abdominal pain, no diarrhea, no hematemesis, no hematochezia, no melena, no nausea, no vomiting - Genitourinary Genitourinary: no change in urinary stream, no dysuria, no flank pain, no hematuria - Musculoskeletal Musculoskeletal ROS IM: no numbness, no tingling - Integumentary Integumentary IM: erythema, rash, no unusual bruising - Neurological Neurological ROS: no confusion, no convulsions, no focal weakness, no numbness, no tingling, no tremor(s) - Hematologic/Lymphatic Hematologic/Lymphatic: no easy bruising - Constitutional Vitals: Temp Pulse Resp BP Pulse Ox 99.2 F 80 18 135/87 94 07/17/17 03:33 07/17/17 03:33 07/17/17 03:33 07/17/17 03:33 07/17/17 03:33 General appearance: Present: cooperative, A&O X 3, morbidly obese, answers questions appropriately - Neck Neck exam general surgery: Present: supple, trachea midline. Absent: lymphadenopathy - Respiratory Respiratory exam: Present: CTAB. Absent: accessory muscle use, rales, rhonchi, wheezes - Cardiovascular Cardiovascular exam: Present: RRR, +S1, +S2. Absent: diastolic murmur, gallop, rubs, systolic murmur - GI/Abdominal GI/Abdominal exam: Present: normal bowel sounds, soft, no peritoneal signs. Absent: distended, tenderness - Extremities Exam Extremities exam: Present: warm, radial pulses palpable and symmetrical. Absent : calf tenderness, cyanotic, pedal edema - Skin Skin exam: Present: dry, erythema (Erythema involving the left upper extremity in patches looks like a petechial rash but with warmth and tenderness to palpation involving multiple parts. She also has similar kinds of patches on her back. Her left leg also appears warm to touch and mildly erythematous.), intact Internal Med - H&P Results - Labs CBC & Chem 7: 07/17/17 01:31 07/17/17 01:31 - Impressions Impressions Chest X-Ray 07/17/17 00:42 IMPRESSION: Negative limited portable chest. D/ / Johnathan Markham MD / Johnathan Markham MD Interpreting Provider: Johnathan Markham MD
[2017-07-17] MEDS ORDERED: Dextrose Gel 15 GM/37.5 ML TUBE PO PRN ×2 (04:32)
[2017-07-17] MEDS ORDERED: *HR* Dextrose 50 % in Water (Syg) 50 ML SYRINGE IVP PRN (04:32)
[2017-07-17] MEDS ORDERED: D5% in Water 1,000 ML IVC PRN (04:32)
[2017-07-17] MEDS ORDERED: Naloxone 0.4 MG/ML INJ IVP PRN (04:34)
[2017-07-17] MEDS: Gabapentin 300 MG CAPSULE PO SCH ×2 (04:42→21:47)
[2017-07-17] MEDS ORDERED: Vancomycin 1,750 MG in 0.9 % Sodium Chloride 250 ML IVPB SCH (05:00)
[2017-07-17] MEDS ORDERED: rOPINIRole 1 MG TABLET PO ONE (05:07)
[2017-07-17] MEDS ORDERED: traMADol 50 MG TABLET PO ONE (05:11)
[2017-07-17] MEDS: *HR* Heparin 5,000 UNIT/ML VIAL SQ SCH ×2 (05:20→16:59)
--- NOTE | 2017-07-17 07:34 | Electrocardiograph Report ---
[address] [place] [address] Test Date: 2017-07-17 Pat Name: Jailene Aggarwal Department: 104 Room: 2S4 Gender: F Buckle Frame Shaper: EKP : [id number] Requested By: Pricilla Warren Order Number: [id number] Reading MD: Tha Nassar MD Measurements Intervals [place] Rate: 94 P: 23 [place]: 164 QRS: -12 QRSD: 92 T: 61 QT: 337 QTc: 389 Interpretive Statements SINUS RHYTHM VOLTAGE CRITERIA FOR LVH Poor R wave progression INFERIOR MYOCARDIAL INFARCTION, PROBABLY OLD Electronically Signed On 07-17-2017 7:32:55 EDT by Tha Nassar MD
[2017-07-17] MEDS ORDERED: rOPINIRole 1 MG TABLET PO SCH (09:00)
[2017-07-17] MEDS ORDERED: 0.9 % Sodium Chloride 1,000 ML ONE (09:03)
[2017-07-17] MEDS: Insulin LISPRO 300 UNITS/3 ML VIAL SQ SCH ×4 (09:08→21:15)
[2017-07-17] MEDS: Aspirin 81 MG TAB.CHEW PO SCH (09:08)
--- NOTE | 2017-07-17 17:24 | Event Note ---
Date of Encounter: 07/17/17 Time of Encounter: 10:45 (1) Cellulitis Current visit: Yes Status: Acute Possible Cellulitis of the left upper extremity. Atypical features but warm to touch. Will continue current antibiotics. Other possibilities include allergic reaction. Although no changes to medications. Trial of antihistamines. Moderate risk for complications. Given her prior history of MRSA, will continue vancomycin. Qualifiers: Site of cellulitis: extremity Site of cellulitis of extremity: upper extremity Laterality: left Qualified Code(s): L03.114 - Cellulitis of left upper limb (2) CKD stage 3 secondary to diabetes Current visit: Yes Status: Chronic Creatinine 0.99. Better than her baseline. Follow renal function closely. (3) DM (diabetes mellitus), type 2 with renal complications Current visit: Yes Status: Chronic Monitor blood sugars. Sliding scale insulin. Diabetic diet. Qualifiers: Diabetes mellitus director long term care insulin use: without jail use Diabetes mellitus complication detail: with chronic kidney disease Chronic kidney disease stage: stage 3 (moderate) Qualified Code(s): E11.22 - Type 2 diabetes mellitus with diabetic chronic kidney disease; N18.3 - Chronic kidney disease, stage 3 (moderate); N18.3 - Chronic kidney disease, stage 3 (moderate) (4) Lymphedema Current visit: No Status: Chronic Chronic lymphedema present in left upper extremity related to prior history of lymph node dissection for breast cancer. (5) DVT prophylaxis Current visit: Yes Status: Acute With subcutaneous heparin
[2017-07-17] MEDS: Metoprolol XL (24 HR) Succ 50 MG TAB.ER.24H PO SCH (21:42)
[2017-07-17] MEDS: Insulin DETEMIR 100 UNIT/ML X5UNITS SQ SCH (21:42)
[2017-07-17] MEDS: hydrALAZINE 25 MG TABLET PO SCH (21:42)
[2017-07-17] MEDS: rOPINIRole 1 MG TABLET PO SCH (21:42)
[2017-07-18] MEDS: *HR* Heparin 5,000 UNIT/ML VIAL SQ SCH ×3 (05:24→20:39)
[2017-07-18 07:06] LABS: Basophils % 0.2 %; Eosinophils # 0.1 K/mcL (0.0-0.6); Eosinophils % 0.6 %; Hematocrit 35.8 % (35.3-44.9); Hemoglobin 11.5 g/dL (11.5-15.4); Immature Granulocytes % 0.7 % (0-4); Lymphocytes # 1.3 K/mcL (0.6-4.6); Lymphocytes % 15.5 %; Mean Corpuscular HGB Conc 32.1 g/dL (31.6-35.5); Mean Corpuscular Hemoglobin 28.7 pg (28.0-33.3); Mean Corpuscular Volume 89.3 fL (83.0-100.0); Mean Platelet Volume 11.5 fL (9.4-12.4); Monocytes # 0.6 K/mcL (0.0-1.3); Monocytes % 6.9 %; Neutrophils # 6.4 K/mcL (1.6-8.9); Nucleated Red Blood Cells 0.2 /100 WBC (0); Platelet Count 170 K/mcL (140-400); Red Blood Count 4.01 M/mcL (3.82-4.97); Red Cell Distribution Width 16.7 % (11.5-14.5); Segmented Neutrophils % 76.1 %
[2017-07-18 07:32] LABS: BUN/Creatinine Ratio 25 (6-26); Blood Urea Nitrogen 20 mg/dL (6-20); Calcium 9.5 mg/dL (8.6-10.3); Carbon Dioxide 22 mEq/L (23-29); Chloride 111 mEq/L (98-107); Glucose 100 mg/dL (70-105); Osmolality,Calculated 293 (280-300); Potassium 3.4 mEq/L (3.5-5.1); Sodium 140 mEq/L (136-145); eGFR For African Americans > 60 (> 60); eGFR For Non-African Americans > 60 (> 60)
[2017-07-18] MEDS ORDERED: Aminoglycoside Consult 1 EACH MC ONE (07:51)
[2017-07-18] MEDS: Insulin LISPRO 300 UNITS/3 ML VIAL SQ SCH ×4 (09:09→20:35)
[2017-07-18] MEDS: Aspirin 81 MG TAB.CHEW PO SCH (09:09)
[2017-07-18] MEDS: rOPINIRole 1 MG TABLET PO SCH ×3 (09:09→20:34)
[2017-07-18] MEDS: 0.9 % Sodium Chloride 1,000 ML IVC SCH (09:10)
[2017-07-18] MEDS ORDERED: traMADol 50 MG TABLET PO PRN (10:38)
--- NOTE | 2017-07-18 11:12 | Internal Med Progress Note ---
Date of Encounter: 07/18/17 Time of Encounter: 11:10 - Assessment and plan (1) Cellulitis Current Visit: Yes Status: Acute Assessment and plan: possible. Has known lymphedema secondary to lymph node dissection secondary to breast cancer. Presented with worsening LUE edema, erythema and tenderness. LUE venous Doppler negative for DVT/SVT. Symptoms initially improved with IV vancomycin however significantly worsened on 07/18/17 exam. Remains afebrile, no elevated WBC. Hemodynamically stable. Continue IV vancomycin (patient reports history MRSA at [facility]). Consult ID. Left upper extremity CT pending. Qualifiers: Site of cellulitis: extremity Site of cellulitis of extremity: upper extremity Laterality: left Qualified Code(s): L03.114 - Cellulitis of left upper limb (2) Lymphedema Current Visit: No Status: Chronic Assessment and plan: hx left upper extremity lymphedema secondary to lymph node dissection/left mastectomy. Now with suspected super imposed cellulitis as noted above. LUE CT pending (3) CKD stage 3 secondary to diabetes Current Visit: Yes Status: Chronic Assessment and plan: per hx. Renal function appears better than baseline. Pre and post IV fluids to avoid HUMBLE. Closely monitor renal function with use of contrast. (4) Lower extremity edema Current Visit: No Status: Acute Assessment and plan: hx chronic left lower extremity edema. No evidence of cellulitis. 02/2017 venous Doppler negative for DVT. (5) DM (diabetes mellitus), type 2 with renal complications Current Visit: Yes Status: Chronic Assessment and plan: per hx. Blood sugars variable but acceptable. Holding home oral hypoglycemics. SSI. Monitor blood sugars and titrate PRN Qualifiers: Diabetes mellitus care home insulin use: without ecommerce marketing manager use Diabetes mellitus complication detail: with chronic kidney disease Chronic kidney disease stage: stage 3 (moderate) Qualified Code(s): E11.22 - Type 2 diabetes mellitus with diabetic chronic kidney disease; N18.3 - Chronic kidney disease, stage 3 (moderate); N18.3 - Chronic kidney disease, stage 3 (moderate) (6) Hypertension Current Visit: Yes Status: Acute Assessment and plan: per hx. BP controlled. Continue home BP medication. Monitor BP and titrate PRN Qualifiers: Hypertension type: essential hypertension Qualified Code(s): I10 - Essential (primary) hypertension (7) Polymyalgia rheumatica Current Visit: Yes Status: Acute Assessment and plan: per hx; on chronic prednisone (8) Breast cancer Current Visit: No Status: Chronic Assessment and plan: hx left breast cancer diagnosed 12/02/13. Was seen 06/2017 by Oncology. Plan for repeat mammogram 04/2018. Follow up outpatient as previously planned. Qualifiers: Breast location: unspecified site of breast Patient sex: female Laterality: left Qualified Code(s): C50.912 - Malignant neoplasm of unspecified site of left female breast (9) DVT prophylaxis Current Visit: Yes Status: Acute Assessment and plan: heparin - Subjective Interval history: Seen and examined at bedside. Says left arm swelling, warmth and tenderness is worse today. Symptoms initially improved yesterday with IV vancomycin however swelling has worsened throughout the night. She is also reporting diffuse had itching and watery eyes. No chest pain or shortness of breath. - Constitutional Vitals: Temp Pulse Resp BP Pulse Ox 98.4 F 66 16 120/79 97 07/18/17 07:14 07/18/17 07:14 07/18/17 07:14 07/18/17 07:14 07/18/17 07:14 General appearance: Present: cooperative, A&O X 3, morbidly obese, answers questions appropriately - Head Head exam: Present: atraumatic, normocephalic - Eye Eye exam: Present: PERRL, conjuntiva pink, sclera anicteric Pupils: Present: PERRL - Neck Neck exam general surgery: Present: supple, trachea midline. Absent: lymphadenopathy - Respiratory Respiratory exam: Present: CTAB. Absent: accessory muscle use, rales, rhonchi, wheezes - Cardiovascular Cardiovascular exam: Present: RRR, +S1, +S2. Absent: diastolic murmur, gallop, rubs, systolic murmur - GI/Abdominal GI/Abdominal exam: Present: normal bowel sounds, soft, no peritoneal signs. Absent: distended, tenderness - Extremities Exam Extremities exam: Present: pedal edema, warm, radial pulses palpable and symmetrical. Absent: calf tenderness, cyanotic Additional comments: Severe left upper extremity lymphedema with superimposed erythema, warmth and tenderness. Swelling significantly increased from yesterday's exam. Mild to moderate left lower extremity nonpitting pedal edema - Neurological Exam Neurological exam: Present: CN II-XII intact, oriented X3, no focal deficits. Absent: pronater drift, facial droop, speech deficit - Skin Skin exam: Present: dry, intact Internal Medicine: Result - Labs CBC & Chem 7: 07/18/17 06:25 07/18/17 06:25 Labs: Short CBC 07/18/17 Range/Units 06:25 WBC 8.4 (4.3-11.1) K/mcL Hgb 11.5 (11.5-15.4) g/dL Hct 35.8 (35.3-44.9) % Plt Count 170 (140-400) K/mcL Neutrophils # 6.4 (1.6-8.9) K/mcL BMP 07/18/17 06:25 Sodium 140 Potassium 3.4 L Chloride 111 H Carbon Dioxide 22 L BUN 20 Creatinine 0.81 Glucose 100 Calcium 9.5 - ABG Interpretation ABG results: PT/INR, D-dimer PT 15.8 Seconds (9.4-12.1) H 07/17/17 01:31 Consult Discharge Plan - Plan Referrals: Ace Knowles DO [Primary Care Provider] -
--- NOTE | 2017-07-18 13:21 | Infectious Disease Consult ---
Date of Encounter: 07/18/17 Time of Encounter: 13:19 Assessment and Plan (1) Rash Status: Acute Assessment and plan: Location: Left upper chest and back, left forearm. Cause unclear: infectious vs. inflammatory (PMR). The patient has no SIRS criteria. CT scan not convincing of infectious etiology and the rash does not look like a cellulitis. Patient reports improvement initially after admission, but reports regression overnight. Improvement likely due to steroid/benadryl administration after admission rather than antibiotics. Recommend starting Medrol dose pack in addition to the patient's daily prednisone. Will treat for infection as well given the patient's history of cellulitis and lymphedema. Discontinue IV Vancomycin. Start Augmentin 875mg PO BID to complete a 10-14 day course. Start doxycycline 100mg PO BID to complete a 10-14 day course. Monitor renal function and dose-adjust antibiotics. (2) Polymyalgia rheumatica Status: Chronic Assessment and plan: Treated with daily prednisone administration. (3) Breast cancer Status: Chronic Assessment and plan: Location: Left breast. Diagnosed in 2013. Status post left mastectomy with lymph node resection with adjuvant chemo/ radiation currently on Arimidex until about 3 weeks ago when the patient was advised to stop the medication to see if it helped with other symptoms she was having. Qualifiers: Qualified Code(s): C50.912 - Malignant neoplasm of unspecified site of left female breast (4) Lymphedema Status: Chronic Assessment and plan: Location: LUE. Secondary to mastectomy and lymph node resection. (5) Neuropathy associated with cancer Status: Resolved (6) CKD stage 3 secondary to diabetes Status: Chronic Assessment and plan: Monitor renal function and dose-adjust antibiotics. Avoid nephrotoxins as able. (7) DM (diabetes mellitus), type 2 with renal complications Status: Chronic Qualifiers: Qualified Code(s): E11.22 - Type 2 diabetes mellitus with diabetic chronic kidney disease; N18.3 - Chronic kidney disease, stage 3 (moderate); N18.3 - Chronic kidney disease, stage 3 (moderate) (8) Status post mastectomy Status: Chronic Qualifiers: Qualified Code(s): Z90.12 - Acquired absence of left breast and nipple Infectious Disease HPI - Data of Consult Patient: known to practice within the last 3 years Consult date: 07/18/17 Requesting Physician: Osama M Alhajjar Primary Care Provider: Ace Knowles - Consult Narrative Reason for consult: LUE Rash History of present illness: Ms. Aggarwal is a 57 year old female with a past medical history of LUE lymphedema secondary to mastectomy in 2013 with lymph node resection for left breast cancer , CHF, COPD, recurrent cellulitis, polymyalgica rheumatica on chronic oral steroids, and diabetes. The patient was admitted to the hospital 07/17/17 for LUE cellulitis. We are consulted for further recommendations for LUE cellulitis. Briefly, the patient is a 57 year old female with a past medical history as stated above. She is known to the ID services as we have been consulted on her case in the past. The patient presented to the ER with complaints of an erythematous, warm, painful rash to the left upper chest, left upper back, and left upper extremity that started a few hours prior to arrival. Upon arrival to the ED, she had some mild tachycardia, but no other SIRS criteria. CXR was negative. Blood cultures were obtained x 2 sets. She was given benadryl and steroids and started on IV antibiotics and was admitted to the hospital for further evaluation. Since admission, the patient has remained afebrile and hemodynamically stable. She reports that after being admitted, her symptoms improved, but then regressed overnight. She states that overall she doesn't feel much better. She had a CT of the LUE that showed non-specific SQ edema with confluent fluid at the level of the olecranon concerning for cellulitis with phlegmon vs. localized bursitis. She is currently on IV Vancomycin. We've been asked to evaluate and make further recommendations. During my exam today, the patient states that she doesn't feel much better. She reports subjective fevers and chills. She reports chronic sinus congestion and sinus pain and states she felt like she was getting a sinus infection. She denies sore throat or earache. She denies chest pain, shortness of breath, or cough. Denies nausea or vomiting, but states her appetite has not been very good. She denies abdominal pain, urinary complaints, or appetite changes. She states that she noticed the rash on Sunday night after she got out of the shower and it continued to worsen. She reports it started on the left upper chest and progressed around to the left upper back, spared the left upper arm, and then was noted on the left forearm as well. She denies any known trauma, exposure to potential allergens, or changes to her personal hygiene products. She does have a scabbed lesion to the right face that the patient reports is from her granddaughter scratching her. The patient lives at home with her . She does not work outside the home. Denies recent travel. Denies tobacco, alcohol, or illicit drug use. CC: Ricco Gilmore Past Med Surg Social Fam HX - Past Medical History Attestation: Yes The following information was validated with the patient. Source: patient, old records reviewed, nursing notes reviewed Medical history: arthritis, cancer (Breast cancer dx'd 2013 s/p left mastectomy with lymph node resection and chemo/radiation), cardiomyopathy, CHF, COPD, coronary artery disease, diabetes, GERD, GI bleed, hyperlipidemia, hypertension , liver disease, malignancy, osteoporosis, renal disease, thyroid disease, syncope, venous stasis, other Psychiatric history: anxiety, depression, other - Past Surgical History Surgical History: breast surgery (Left mastectomy with LN resection), cancer surgery, orthopedic, other (Neck fusion), sinus surgery, other - Social History Smoking Status: Never smoker Smokeless Tobacco Status: No Alcohol use: none Drug use: none Occupational status: unemployed Current living situation: Home - Independent Activity Level: Independent ambulation Recent Out of Country Travel Within the Last 8 Weeks: No Exposure or Possible Exposure to Illness During Travel: No - Family History Father Adopted: No Family Member Ethnicity: Non- Living Status: Hx Family Cardiac Disorders: Yes (AK @ 50yrs and 75) Hx Family Respiratory Disorders: No Hx Family Cancer: No Hx Family GI Disorders: No Hx Family Endocrine Disorder: Yes (kidney disease, dialysis) Hx Family Neuromuscular Disorders: No Hx Family Neurologic Disorders: Yes (STROKE) Hx Family HEENT Disorders: No Hx Family Autoimmune Disorders: No Mother Living Status: Still Living Hx Family Cardiac Disorders: No Hx Family Respiratory Disorders: No Hx Family Cancer: Yes (skin cancer) Hx Family GI Disorders: No Hx Family Endocrine Disorder: No Hx Family Neuromuscular Disorders: No Sister Living Status: Still Living Hx Family Cardiac Disorders: No Hx Family Respiratory Disorders: No Hx Family Cancer: Yes (breast) Hx Family GI Disorders: No Hx Family Endocrine Disorder: Yes (diabetes) Hx Family Neuromuscular Disorders: No Hx Family Neurologic Disorders: No Hx Family HEENT Disorders: No Hx Family Autoimmune Disorders: Yes (lupus) Infectious Disease-CN:Meds Multivitamin [Multivitamins] 1 cap PO QAM 12/04/14 [History] Ropinirole [Requip] 4 mg PO BID 12/04/14 [History] Metoprolol XL (24 HR) Succ [Toprol Xl] 50 mg PO HS 01/03/16 [History] SitaGLIPtin [Januvia] 100 mg PO DAILY 01/03/16 [History] Gabapentin [Neurontin] 300 mg PO BID 03/21/16 [History] Cholecalciferol (D-3) [Vitamin D] 1,000 unit PO DAILY #90 tablet 06/20/16 [Rx] Aspirin 81 mg PO DAILY 08/21/16 [History] Furosemide [Lasix] 40 mg PO DAILY 08/21/16 [History] Loratadine [Claritin] 10 mg PO DAILY PRN 10/20/16 [History] Ezetimibe [Zetia] 10 mg PO DAILY 02/09/17 [History] Potassium Chloride [K-Tab ER] 20 meq PO DAILY 02/09/17 [History] Ropinirole HCl [Requip] 5 mg PO HS 02/09/17 [History] Tramadol HCl [Ultram] 50 mg PO BID PRN 02/09/17 [History] predniSONE [PredniSONE] 10 mg PO DAILY 04/19/17 [History] Ketoconazole 2% CRM [Nizoral Cream] 1 appl TP BID PRN 06/22/17 [History] Calcium/D3/Mag Ox/Candy Cutter Hand/Victor [place]/Zn [Caltrate+D3 Plus Mineral Minis] 2 tab PO DAILY [History] Gabapentin [Neurontin] 900 mg PO HS 07/17/17 [History] Metformin HCl [Glucophage] 1,000 mg PO BID 07/17/17 [History] hydrALAZINE [HydrALAZINE] 25 mg PO BID 07/17/17 [History] Amoxicillin/Clavulanate [Augmentin] 875 mg PO BIDWM 10 Days #20 tablet 07/19/17 [Rx] Doxycycline 100 mg PO BID #20 capsule 07/19/17 [Rx] 3 Allergy/AdvReac Type Severity Reaction Status Date / Time lorazepam [From Ativan] AdvReac Intermediate Agitated Verified 07/17/17 08:15 Oxycodone AdvReac Confusion Verified 07/17/17 08:15 All systems: reviewed and no additional remarkable complaints except as stated Exam - Constitutional Vitals: Temp Pulse Resp BP Pulse Ox 98.4 F 66 16 120/79 97 07/18/17 07:14 07/18/17 07:14 07/18/17 07:14 07/18/17 07:14 07/18/17 07:14 General appearance: cooperative, no acute distress, obese - Head Head exam: Present: atraumatic, normal inspection, normocephalic - Eye Eye exam: Present: EOMI, normal appearance, PERRL Pupils: Present: normal accommodation - ENT ENT exam: Present: mucous membranes moist - Neck Neck exam: Present: normal inspection - Respiratory Respiratory exam: Present: CTAB. Absent: rales, respiratory distress, rhonchi, wheezes - Cardiovascular Cardiovascular exam: Present: RRR, +S1, +S2 - GI/Abdominal GI/Abdominal exam: Present: distended (obese), normal bowel sounds, soft. Absent: tenderness - Extremities Exam Extremities exam: Present: normal capillary refill, tenderness (LUE). Absent: joint swelling, pedal edema Additional comments: LUE edema with erythematous, maculopapular rash noted to the left forearm that is warm to touch and tender with palpation. 2+ edema noted to the LUE. - Neurological Exam Neurological exam: Present: alert, oriented X3, no focal deficits - Psychiatric Psychiatric exam: Present: normal affect, normal mood - Skin Skin exam: Present: dry, intact, normal color, rash (Maculopapular rash noted to the LUE forearm warm to touch.), warm Additional comments: Superficial abrasion noted to the right cheek that is scabbed without erythema, warmth, or tender. Infectious Disease CN: Results - Labs CBC & Chem 7: 07/19/17 04:37 07/19/17 04:37 Consult Discharge Plan - Plan Referrals: Ace Knowles DO [Primary Care Provider] - Prescriptions: Amoxicillin/Clavulanate [Augmentin] 875 mg PO BIDWM 10 Days #20 tablet Doxycycline 100 mg PO BID #20 capsule - Attending Attestation I examined this patient and my medical decision-making was reviewed with the Resident Physician. I agree with the documented findings, disposition and treatment plan as described except to the extent set forth below. This is an addendum to original report dictated by Faiza Wilson CNP.~ Please refer to Amy pereira for full details. Patient is a 57-year-old woman who has been seen by us previously for URI and viral syndrome back in 2016 who also has a history of breast cancer stage III status post chemoradiation mastectomy and currently is on Arimidex that was stopped a month ago due to possible adverse reaction and diabetes mellitus type 2 with stage III chronic kidney disease was admitted because of cellulitis of the left upper extremity.~ Patient apparently states that the erythema started on the chest and then moved down to her forearm.~ I asked the patient if the erythema was continuous she said no it just was on the chest a little bit can skip the arm and went on the forearm.~ Patient had an associated fevers and chills.~ Patient was admitted and started on spectrum antibiotics including vancomycin and Zosyn and was given Solu-Medrol.~ Patient did better clinically but now she feels that it is a little bit worse.~ On physical exam there is some erythema that appears to be like maculopapular on the left forearm.~ There is no rash on the left arm.~ There is a very fine rash under her neck on the chest that does not appear to be similar to the one on her forearm.~ Patient also has some erythema on her right cheek with 3 scabs that she attributes to being scratched by her grandchild who is 7 months old.~ Patient denies any trauma to her arm denies any animal bite denies any other symptoms. Patient also had a CT of the forearm which shows nonspecific subcutaneous edema with confluent fluid at the level of the olecranon.~ No localized abscess.~ Correlate clinically evidence of cellulitis with phlegmon and/or localized bursitis. Since admission patient had no SIRS criteria.~ She states that she does feel better overall. At this point the erythema and the rash really is not very suggestive of cellulitis per se.~ The arm is not warm or in the other forearm on the right.~ There is no fluctuance.~ There is no scabs or open lesions. Based on the patients clinical picture and the fact that she has no SIRS criteria and the erythema is localized, I recommend switching her to oral antibiotics and is seeing the vancomycin and Zosyn.~ Patient has an IV in the right forearm which appears to have infiltrated as well. May discharge home on doxycycline and Augmentin and a Medrol Dosepak on top of her baseline prednisone level.~ Patient follow-up with her PCP for further evaluation.~
[2017-07-18] MEDS: Gabapentin 300 MG CAPSULE PO SCH (13:58)
[2017-07-18] MEDS: hydrALAZINE 25 MG TABLET PO SCH ×2 (13:58→20:35)
--- NOTE | 2017-07-18 16:52 | Event Note ---
Date of Encounter: 07/18/17 Time of Encounter: 16:52 Ms. Aggarwal was admitted on 07/17/17 for what appeared to be cellulitis and exacerbation of her lymphedema to her LUE. Her oncologic history is significant for stage III (cT2N2) grade 3 invasive ductal carcinoma of the left breast diagnosed 12/02/13. She completed neoadjuvant chemo in 2013, S/P left mastectomy and axillary dissection 05/25/14 with 2.2 cm residual cancer, 0/16 nodes positive. Adjuvant radiation completed 11/12/14. Arimidex initiated 07/08/14. Herceptin maintenance completed 04/28/15. Oncology consulted for further lymphedema recommendations. She was diagnosed with lymphedema about 1-2 years ago per patient, underwent PT lymphedema therapy at that time. She has a sleeve at home which she does not wear often. She began experiencing increased swelling and pain to her LUE followed by skin erythema which had recently worsened and led to her ER presentation. She reports no recent trauma to her LUE. Doppler is negative for DVT/SVT. She does not have a mediport. CT scan not convincing of infectious etiology Reviewed ID recommendations, etiology of rash unclear infectious vs inflammatory. The rash appears to resemble more of an inflammatory or contact dermatitis. She will start a medrol dose pack and treat as infection given her hx of lymphedema with PO augmentin and doxycycline. I gave her printed and verbal education on lymphedema including its causes, precautions such as avoidance of extreme temperatures (hot/cold packs to arm), dietary recommendations, recommended exercises to stabilize fluid and wrapping techniques. Wound care was consulted for assistance to provide a compression wrap to her arm. I have asked nursing to please assist with wrapping arm using same technique as unna boots for LE edema. I explained to patient that stabilizing the fluid with a compression wrap should help her symptoms. I will also arrange for patient to have outpatient follow up with Dorothy Barnett PT with our l[facility]hedema [facility] on outpatient basis. The clinic will call her with an appointment. As detailed in Dr. Crow's most previous note, she has stopped taking for the short recommended period of time to see if his helps to alleviate her joint pain. Unfortunately, stopping this medication has not made a difference in her joint pain therefore, not the likely cause of her issues, she is planned to restart her Arimidex again shortly. I will arrange for follow up with an BLOW MOULDING MACHINE OPERATOR within the next few weeks to ensure proper continuity of care. Please call for any other further questions or concerns.
[2017-07-18] MEDS: methylPREDNISolone 4 MG TABLET PO SCH ×2 (17:42→20:36)
[2017-07-18] MEDS: Doxycycline 100 MG CAPSULE PO SCH (20:31)
[2017-07-18] MEDS: Metoprolol XL (24 HR) Succ 50 MG TAB.ER.24H PO SCH (20:36)
[2017-07-18] MEDS ORDERED: Gabapentin 300 MG CAPSULE PO SCH (21:00)
[2017-07-19] MEDS: Insulin DETEMIR 100 UNIT/ML X5UNITS SQ SCH (01:25)
[2017-07-19 04:51] LABS: Hemoglobin 11.9 g/dL (11.5-15.4); Mean Corpuscular HGB Conc 32.2 g/dL (31.6-35.5); Mean Corpuscular Hemoglobin 28.8 pg (28.0-33.3); Mean Corpuscular Volume 89.6 fL (83.0-100.0); Mean Platelet Volume 10.8 fL (9.4-12.4); Platelet Count 157 K/mcL (140-400); Red Blood Count 4.13 M/mcL (3.82-4.97); Red Cell Distribution Width 16.6 % (11.5-14.5)
[2017-07-19 05:14] LABS: BUN/Creatinine Ratio 26 (6-26); Blood Urea Nitrogen 20 mg/dL (6-20); Calcium 9.9 mg/dL (8.6-10.3); Carbon Dioxide 23 mEq/L (23-29); Chloride 107 mEq/L (98-107); Glucose 160 mg/dL (70-105); Osmolality,Calculated 290 (280-300); Potassium 4.3 mEq/L (3.5-5.1); Sodium 137 mEq/L (136-145); eGFR For African Americans > 60 (> 60); eGFR For Non-African Americans > 60 (> 60)
[2017-07-19] MEDS ORDERED: methylPREDNISolone 4 MG TABLET PO SCH ×4 (07:30→21:00)
[2017-07-19] MEDS: *HR* Heparin 5,000 UNIT/ML VIAL SQ SCH ×2 (07:52→14:46)
[2017-07-19] MEDS: Insulin LISPRO 300 UNITS/3 ML VIAL SQ SCH ×2 (07:55→11:03)
[2017-07-19] MEDS: hydrALAZINE 25 MG TABLET PO SCH (07:56)
[2017-07-19] MEDS: Aspirin 81 MG TAB.CHEW PO SCH (07:56)
[2017-07-19] MEDS: Doxycycline 100 MG CAPSULE PO SCH (07:56)
[2017-07-19] MEDS: rOPINIRole 1 MG TABLET PO SCH ×2 (07:56→13:12)
[2017-07-19] MEDS: Gabapentin 300 MG CAPSULE PO SCH (07:57)
[2017-07-19 08:01] VITALS: BP 141/18
[2017-07-19] MEDS ORDERED: Furosemide 40 MG TABLET PO SCH (09:00)
[2017-07-19] MEDS ORDERED: predniSONE 10 MG TABLET PO SCH (09:00)
[2017-07-19] MEDS ORDERED: (Ezetimibe [Zetia] 10 MG) PO SCH (09:00)
--- NOTE | 2017-07-19 13:07 | Discharge Summary ---
- NOTES TO OUTPATIENT PROVIDER Notes to Outpatient Provider: please f/u with ncology within 1-2 weeks. F/u with PCP within 1-2 weeks. Orders not resulted at time of discharge: none Date of Encounter: 07/19/17 Time of Encounter: 13:04 - Discharge Diagnosis (1) Cellulitis Priority: Primary Status: Acute Qualifiers: Site of cellulitis: extremity Site of cellulitis of extremity: upper extremity Laterality: left Qualified Code(s): L03.114 - Cellulitis of left upper limb (2) Breast cancer Priority: Secondary Status: Chronic Qualifiers: Breast location: unspecified site of breast Estrogen receptor status: unspecified Patient sex: female Laterality: left Qualified Code(s): C50.912 - Malignant neoplasm of unspecified site of left female breast Hospital course: Ms. Aggarwal is a 57 year old female with PMH of left breast cancer s/p mastectomy and chemo/radiation therapy presented with left arm rash, concerning for cellulitis. ID was consulted and CT left arm did not reveal evidence of infection. Contact dermatitis was suspected but cellulitis can not be ruled out completely. She was started on Medro dose pack and IV vancomycin with improvement of rash. Oncology was also consulted for left arm lymphedema. Pt was instructed to f/u with oncology for further treatment plan, PT for lymphedema treatment. Her Abx has changed to oral Augmentin and Doxycycline. She will be discharged home today and f/u with pcp as scheduled. Discharge discussed with: patient Time spent discussing smoking cessation with patient: more than 10 minutes - Time Spent with Patient Total time spent providing and/or coordinating discharge services: Greater than 30 minutes - Discharge Medications Prescriptions: Amoxicillin/Clavulanate [Augmentin] 875 mg PO BIDWM 10 Days #20 tablet Doxycycline 100 mg PO BID #20 capsule MethylPREDNISolone [Medrol] 2 mg PO DAILY #19 tablet Home Medications: Multivitamin [Multivitamins] 1 cap PO QAM 12/04/14 [History] Ropinirole [Requip] 4 mg PO BID 12/04/14 [History] Metoprolol XL (24 HR) Succ [Toprol Xl] 50 mg PO HS 01/03/16 [History] SitaGLIPtin [Januvia] 100 mg PO DAILY 01/03/16 [History] Gabapentin [Neurontin] 300 mg PO BID 03/21/16 [History] Cholecalciferol (D-3) [Vitamin D] 1,000 unit PO DAILY #90 tablet 06/20/16 [Rx] Aspirin 81 mg PO DAILY 08/21/16 [History] Furosemide [Lasix] 40 mg PO DAILY 08/21/16 [History] Loratadine [Claritin] 10 mg PO DAILY PRN 10/20/16 [History] Ezetimibe [Zetia] 10 mg PO DAILY 02/09/17 [History] Potassium Chloride [K-Tab ER] 20 meq PO DAILY 02/09/17 [History] Ropinirole HCl [Requip] 5 mg PO HS 02/09/17 [History] Tramadol HCl [Ultram] 50 mg PO BID PRN 02/09/17 [History] predniSONE [PredniSONE] 10 mg PO DAILY 04/19/17 [History] Ketoconazole 2% CRM [Nizoral Cream] 1 appl TP BID PRN 06/22/17 [History] Calcium/D3/Mag Ox/Line Servicer/[place]/Zn [Caltrate+D3 Plus Mineral Minis] 2 tab PO DAILY [History] Gabapentin [Neurontin] 900 mg PO HS 07/17/17 [History] Metformin HCl [Glucophage] 1,000 mg PO BID 07/17/17 [History] hydrALAZINE [HydrALAZINE] 25 mg PO BID 07/17/17 [History] Amoxicillin/Clavulanate [Augmentin] 875 mg PO BIDWM 10 Days #20 tablet 07/19/17 [Rx] Doxycycline 100 mg PO BID #20 capsule 07/19/17 [Rx] MethylPREDNISolone [Medrol] 2 mg PO DAILY #19 tablet 07/19/17 [Rx] Allergies/Adverse Reactions: 3 Allergy/AdvReac Type Severity Reaction Status Date / Time lorazepam [From Ativan] AdvReac Intermediate Agitated Verified 07/17/17 08:15 Oxycodone AdvReac Confusion Verified 07/17/17 08:15 Date of admission: 07/17/17 17:26 Primary care physician: Ace Knowles Consults: 07/18/17 10:54 Consult to Infectious Diseases [CONS] Routine Consulting Provider: Infectious Disease [facility] Reason for Consult: lymphedema with cellulitis not improving Call Completed: Yes 07/18/17 15:39 Consult to Oncology [CONS] Routine Consulting Provider: Oncology [facility] Reason for Consult: lymph edema Call Completed: Yes Consult to Wound Care [CONS] Routine Reason for Consult: Lymphedema compression wrap Call Completed: Yes Anticipated date of discharge: 07/19/17 - Constitutional Vitals: Temp Pulse Resp BP Pulse Ox 97.4 F L 80 16 141/18 100 07/19/17 08:00 07/19/17 08:00 07/19/17 08:00 07/19/17 08:00 07/19/17 08:00 General appearance: Present: cooperative, A&O X 3, morbidly obese, answers questions appropriately - Head Head exam: Present: atraumatic, normocephalic - Respiratory Respiratory exam: Present: CTAB. Absent: accessory muscle use, rales, rhonchi, wheezes - Cardiovascular Cardiovascular exam: Present: RRR, +S1, +S2. Absent: diastolic murmur, gallop, rubs, systolic murmur - GI/Abdominal GI/Abdominal exam: Present: normal bowel sounds, soft, no peritoneal signs. Absent: distended, tenderness - Extremities Exam Additional comments: left arm general swelling with diffuse rashes. - Neurological Exam Neurological exam: Present: CN II-XII intact, oriented X3, no focal deficits. Absent: pronater drift, facial droop, speech deficit - Patient Status Disposition: Home, Self-Care Condition: Fair Functional capacity at discharge: independent ambulation Overall status at discharge: patient is progressing back to baseline - Ambulatory Orders Ambulatory Orders: Consult to Physical Therapy [CONS] Time Frame: 1 Week, Facility: [facility], Location: Rehab Services - Discharge Instructions Follow Up With: Ace Knowles DO [Primary Care Provider] - (within 1-2 weeks.) - Diet and Activity Activity: increase activity as tolerated Diet: diabetic diet
[2017-07-20] MEDS ORDERED: methylPREDNISolone 4 MG TABLET PO SCH (21:00)
== END 2017-07-19 14:55 | disposition home or self-care (01) | DRG 603 ==
LOC: 2SOUTHHOLD 21:51 → EMEROO 21:51 → 2SOUTHHOLD 07-17 03:22
PROVIDERS: ADMIT Pediatrics; ATTEND Internal Medicine

== ENCOUNTER 2019-05-27 21:03 | Inpatient (IN) ==
[2019-05-27] MEDS ORDERED: 0.9 % Sodium Chloride 1,000 ML IVC STA (22:26)
[2019-05-27] MEDS ORDERED: Isovue-370 500 ML BOTTLE IVP ONE ×2 (22:29→23:56)
[2019-05-27 22:44] LABS: Alanine Aminotransferase 27 Units/L (7-52); Albumin 4.6 g/dL (3.5-5.7); Albumin/Globulin Ratio 1.4 (1.1-2.2); Alkaline Phosphatase 99 Units/L (34-104); Aspartate Amino Transferase 23 Units/L (13-39); BUN/Creatinine Ratio 31 (6-26); Bilirubin,Direct 0.1 mg/dL (0.0-0.2); Bilirubin,Indirect 0.3 mg/dL (0.0-1.0); Bilirubin,Total 0.4 mg/dL (0.3-1.0); Blood Urea Nitrogen 33 mg/dL (6-20); Calcium 10.1 mg/dL (8.6-10.3); Carbon Dioxide 27 mEq/L (23-29); Chloride 99 mEq/L (98-107); Globulin 3.2 g/dL (2.4-3.5); Glucose 155 mg/dL (70-105); Osmolality,Calculated 300 (280-300); Potassium 3.9 mEq/L (3.5-5.1); Sodium 140 mEq/L (136-145); Total Protein 7.8 g/dL (6.4-8.9); eGFR For African Americans > 60 (> 60); eGFR For Non-African Americans 53 (> 60)
[2019-05-27] MEDS ORDERED: *HR* FentaNYL (PF) 100 MCG/2 ML VIAL IVP ONE (22:46)
[2019-05-27] MEDS ORDERED: Clindamycin 600 MG/50 ML 600 MG/50 ML IV.SOLN IVPB STA (22:52)
[2019-05-27 22:59] LABS: Basophils # 0.1 K/mcL (0.0-0.2); Basophils % 0.7 %; Eosinophils # 0.1 K/mcL (0.0-0.6); Eosinophils % 1.4 %; Hematocrit 36.7 % (35.3-44.9); Hemoglobin 11.7 g/dL (11.5-15.4); Immature Granulocytes % 1.2 % (0-4); Lymphocytes # 1.2 K/mcL (0.6-4.6); Lymphocytes % 11.9 %; Mean Corpuscular HGB Conc 31.9 g/dL (31.6-35.5); Mean Corpuscular Hemoglobin 30.9 pg (28.0-33.3); Mean Corpuscular Volume 96.8 fL (83.0-100.0); Monocytes % 9.8 %; Neutrophils # 7.4 K/mcL (1.6-8.9); Platelet Count 412 K/mcL (140-400); Red Blood Count 3.79 M/mcL (3.82-4.97); Red Cell Distribution Width 17.8 % (11.5-14.5); White Blood Count 9.9 K/mcL (4.3-11.1)
[2019-05-27] MEDS ORDERED: Vancomycin 1,750 MG in 0.9 % Sodium Chloride 250 ML IVPB SCH (23:00)
[2019-05-27] MEDS ORDERED: Piperacillin/Tazobactam 3.375 GM in 0.9 % Sodium Chloride Mini Bag 100 ML IVPB ONE (23:56)
[2019-05-28] MEDS ORDERED: Piperacillin/Tazobactam 3.375 GM in 0.9 % Sodium Chloride Mini Bag 100 ML IVPB ONE (03:00)
[2019-05-28] MEDS ORDERED: Dextrose Gel 15 GM/37.5 ML TUBE PO PRN ×2 (03:55)
[2019-05-28] MEDS ORDERED: *HR* Dextrose 50 % in Water (Syg) 50 ML SYRINGE IVP PRN (03:55)
[2019-05-28] MEDS ORDERED: D5% in Water 1,000 ML IVC PRN (03:55)
[2019-05-28] MEDS ORDERED: Vancomycin 1,750 MG in 0.9 % Sodium Chloride 250 ML IVPB SCH (04:00)
[2019-05-28] MEDS ORDERED: rOPINIRole 1 MG TABLET PO ONE (04:48)
[2019-05-28] MEDS ORDERED: Gadolinium Contrast Agent (WT Based) IV PRN (06:01)
[2019-05-28] MEDS: Ketorolac 30 MG/ML VIAL IVP PRN ×3 (06:44→19:42)
[2019-05-28] MEDS: Insulin LISPRO 300 UNITS/3 ML VIAL SQ SCH ×3 (08:31→16:56)
[2019-05-28] MEDS: Piperacillin/Tazobactam 3.375 GM in 0.9 % Sodium Chloride Mini Bag 100 ML IVPB SCH ×2 (10:42→19:41)
[2019-05-28] MEDS: (Mirabegron [Myrbetriq] 50 MG) PO SCH (10:43)
[2019-05-28] MEDS: predniSONE 5 MG TABLET PO SCH (10:43)
[2019-05-28] MEDS: Aspirin 81 MG TAB.CHEW PO SCH (10:43)
[2019-05-28] MEDS: Anastrozole 1 MG TABLET PO SCH (10:43)
[2019-05-28] MEDS: (Ezetimibe [Zetia] 10 MG) PO SCH (10:43)
[2019-05-28] MEDS ORDERED: Lidocaine/EPI 1:100k 1% 20 ML VIAL ONE (17:13)
[2019-05-28] MEDS ORDERED: Bupivacaine/EPI 1:200k 0.5%PF 10 ML VIAL ONE (17:13)
[2019-05-28] MEDS ORDERED: Propofol 500 MG/50 ML INFUS..BTL ONE (17:27)
[2019-05-28] MEDS ORDERED: *HR* Midazolam HCl 2 MG/2 ML VIAL ONE (17:29)
[2019-05-28] MEDS ORDERED: *HR* FentaNYL (PF) 100 MCG/2 ML VIAL ONE (17:29)
[2019-05-28] MEDS ORDERED: *HR* HYDROmorphone (PF) 1 MG/ML SYRINGE IVP PRN (17:31)
[2019-05-28] MEDS ORDERED: *HR* Labetalol 20 MG/4 ML SYRINGE IVP PRN (17:31)
[2019-05-28] MEDS ORDERED: Ondansetron 4 MG/2 ML VIAL IVP PRN (17:31)
[2019-05-28] MEDS ORDERED: *HR* Metoprolol 5 MG/5 ML VIAL IVP ONE (17:51)
[2019-05-28] MEDS: Metoprolol XL (24 HR) Succ 50 MG TAB.ER.24H PO SCH (19:40)
[2019-05-28] MEDS: Gabapentin 300 MG CAPSULE PO SCH (19:40)
[2019-05-28] MEDS: rOPINIRole 1 MG TABLET PO SCH (19:41)
[2019-05-29] MEDS: Gabapentin 400 MG CAPSULE PO SCH ×2 (00:02→22:33)
[2019-05-29] MEDS: Ketorolac 30 MG/ML VIAL IVP PRN ×2 (01:29→08:56)
[2019-05-29] MEDS: Piperacillin/Tazobactam 3.375 GM in 0.9 % Sodium Chloride Mini Bag 100 ML IVPB SCH ×3 (03:13→18:55)
[2019-05-29 04:08] LABS: Basophils # 0.1 K/mcL (0.0-0.2); Basophils % 0.8 %; Eosinophils # 0.1 K/mcL (0.0-0.6); Eosinophils % 1.3 %; Hematocrit 30.2 % (35.3-44.9); Immature Granulocytes % 1.4 % (0-4); Lymphocytes # 1.1 K/mcL (0.6-4.6); Lymphocytes % 13.3 %; Mean Corpuscular HGB Conc 31.1 g/dL (31.6-35.5); Mean Corpuscular Hemoglobin 30.7 pg (28.0-33.3); Mean Corpuscular Volume 98.7 fL (83.0-100.0); Mean Platelet Volume 10.6 fL (9.4-12.4); Monocytes % 11.7 %; Platelet Count 304 K/mcL (140-400); Red Blood Count 3.06 M/mcL (3.82-4.97); Red Cell Distribution Width 17.4 % (11.5-14.5); Segmented Neutrophils % 71.5 %; White Blood Count 8.4 K/mcL (4.3-11.1)
[2019-05-29 04:28] LABS: BUN/Creatinine Ratio 21 (6-26); Blood Urea Nitrogen 23 mg/dL (6-20); Calcium 9.1 mg/dL (8.6-10.3); Carbon Dioxide 23 mEq/L (23-29); Chloride 108 mEq/L (98-107); Glucose 135 mg/dL (70-105); Osmolality,Calculated 296 (280-300); Sodium 140 mEq/L (136-145); eGFR For African Americans > 60 (> 60); eGFR For Non-African Americans 52 (> 60)
[2019-05-29 04:34] LABS: Hemoglobin 9.4 g/dL (11.5-15.4)
[2019-05-29] MEDS: rOPINIRole 1 MG TABLET PO SCH ×2 (08:49→20:51)
[2019-05-29] MEDS: predniSONE 5 MG TABLET PO SCH (08:50)
[2019-05-29] MEDS: Furosemide 40 MG TABLET PO SCH ×2 (08:56→17:47)
[2019-05-29] MEDS: Aspirin 81 MG TAB.CHEW PO SCH (08:56)
[2019-05-29] MEDS: Multivit/Ca/Min/Fe/FA 1 TAB TABLET PO SCH (08:56)
[2019-05-29] MEDS: Insulin LISPRO 300 UNITS/3 ML VIAL SQ SCH ×3 (08:57→16:49)
[2019-05-29] MEDS: (Mirabegron [Myrbetriq] 50 MG) PO SCH (09:12)
[2019-05-29] MEDS: (Ezetimibe [Zetia] 10 MG) PO SCH (09:12)
[2019-05-29] MEDS: Anastrozole 1 MG TABLET PO SCH (11:26)
[2019-05-29] MEDS: *HR* OxyCODONE/APAP 5/325 TABLET PO PRN ×2 (15:03→21:00)
[2019-05-29] MEDS: predniSONE 20 MG TABLET PO SCH (16:48)
[2019-05-29] MEDS: Gabapentin 300 MG CAPSULE PO SCH (17:47)
[2019-05-29] MEDS: Metoprolol XL (24 HR) Succ 50 MG TAB.ER.24H PO SCH (20:51)
[2019-05-29] MEDS ORDERED: NON-FORMULARY MEDICATION 1 EACH EACH (Ropinirole Hcl [Requip] 4 MG) PO SCH (21:00)
[2019-05-30 03:53] LABS: Basophils # 0.1 K/mcL (0.0-0.2); Basophils % 0.6 %; Eosinophils % 0.2 %; Hematocrit 28.9 % (35.3-44.9); Hemoglobin 9.3 g/dL (11.5-15.4); Immature Granulocytes % 3.7 % (0-4); Lymphocytes # 0.7 K/mcL (0.6-4.6); Lymphocytes % 7.2 %; Mean Corpuscular HGB Conc 32.2 g/dL (31.6-35.5); Mean Corpuscular Hemoglobin 30.4 pg (28.0-33.3); Mean Corpuscular Volume 94.4 fL (83.0-100.0); Mean Platelet Volume 10.6 fL (9.4-12.4); Monocytes # 0.5 K/mcL (0.0-1.3); Monocytes % 5.1 %; Nucleated Red Blood Cells 0.2 /100 WBC (0); Platelet Count 314 K/mcL (140-400); Red Blood Count 3.06 M/mcL (3.82-4.97); Red Cell Distribution Width 17.2 % (11.5-14.5); Segmented Neutrophils % 83.2 %; White Blood Count 9.6 K/mcL (4.3-11.1)
[2019-05-30 04:14] LABS: BUN/Creatinine Ratio 21 (6-26); Blood Urea Nitrogen 23 mg/dL (6-20); Calcium 9.1 mg/dL (8.6-10.3); Carbon Dioxide 22 mEq/L (23-29); Chloride 105 mEq/L (98-107); Glucose 210 mg/dL (70-105); Osmolality,Calculated 296 (280-300); Sodium 138 mEq/L (136-145); eGFR For African Americans > 60 (> 60); eGFR For Non-African Americans 52 (> 60)
[2019-05-30] MEDS: Piperacillin/Tazobactam 3.375 GM in 0.9 % Sodium Chloride Mini Bag 100 ML IVPB SCH (04:41)
[2019-05-30] MEDS: *HR* OxyCODONE/APAP 5/325 TABLET PO PRN ×3 (06:55→23:03)
[2019-05-30] MEDS ORDERED: Folic Acid 1 MG TABLET PO SCH (09:00)
[2019-05-30] MEDS: Aspirin 81 MG TAB.CHEW PO SCH (11:26)
[2019-05-30] MEDS: Anastrozole 1 MG TABLET PO SCH (11:26)
[2019-05-30] MEDS: rOPINIRole 1 MG TABLET PO SCH ×2 (11:29→21:02)
[2019-05-30] MEDS: Furosemide 40 MG TABLET PO SCH ×2 (11:29→18:19)
[2019-05-30] MEDS: predniSONE 20 MG TABLET PO SCH (11:29)
[2019-05-30] MEDS: Multivit/Ca/Min/Fe/FA 1 TAB TABLET PO SCH (11:29)
[2019-05-30] MEDS: Insulin LISPRO 300 UNITS/3 ML VIAL SQ SCH ×2 (11:32→18:19)
[2019-05-30] MEDS: Gabapentin 300 MG CAPSULE PO SCH (18:19)
[2019-05-30] MEDS ORDERED: Lidocaine/EPI 1:100k 1% 20 ML VIAL ONE (18:34)
[2019-05-30] MEDS ORDERED: Propofol 500 MG/50 ML INFUS..BTL ONE (18:37)
[2019-05-30] MEDS ORDERED: Lidocaine -MPF 2% 2 ML VIAL ONE (18:38)
[2019-05-30] MEDS ORDERED: *HR* Midazolam HCl 2 MG/2 ML VIAL ONE (18:39)
[2019-05-30] MEDS ORDERED: *HR* FentaNYL (PF) 100 MCG/2 ML VIAL ONE ×2 (18:39→19:05)
[2019-05-30] MEDS ORDERED: *HR* Labetalol 20 MG/4 ML SYRINGE IVP PRN (18:53)
[2019-05-30] MEDS ORDERED: Ondansetron 4 MG/2 ML VIAL IVP PRN (18:53)
[2019-05-30] MEDS ORDERED: Dextrose Gel 15 GM/37.5 ML TUBE PO PRN ×2 (19:55)
[2019-05-30] MEDS ORDERED: D5% in Water 1,000 ML IVC PRN (19:55)
[2019-05-30] MEDS ORDERED: *HR* Dextrose 50 % in Water (Syg) 50 ML SYRINGE IVP PRN (19:55)
[2019-05-30] MEDS: Metoprolol XL (24 HR) Succ 50 MG TAB.ER.24H PO SCH (21:02)
[2019-05-30] MEDS: Gabapentin 400 MG CAPSULE PO SCH (23:02)
[2019-05-31] MEDS: Insulin LISPRO 300 UNITS/3 ML VIAL SQ SCH ×6 (01:59→21:02)
[2019-05-31] MEDS: *HR* OxyCODONE/APAP 5/325 TABLET PO PRN ×3 (05:42→22:16)
[2019-05-31] MEDS ORDERED: *HR* Dextrose 50 % in Water (Syg) 50 ML SYRINGE IVP PRN (07:15)
[2019-05-31] MEDS ORDERED: D5% in Water 1,000 ML IVC PRN (07:15)
[2019-05-31] MEDS ORDERED: Dextrose Gel 15 GM/37.5 ML TUBE PO PRN ×2 (07:15)
[2019-05-31 08:35] LABS: White Blood Count 9.7 K/mcL (4.3-11.1)
[2019-05-31 08:36] LABS: Basophils # 0.1 K/mcL (0.0-0.2); Basophils % 1.4 %; Eosinophils # 0.1 K/mcL (0.0-0.6); Eosinophils % 1.2 %; Hematocrit 31.2 % (35.3-44.9); Hemoglobin 10.1 g/dL (11.5-15.4); Immature Granulocytes % 3.4 % (0-4); Lymphocytes # 1.6 K/mcL (0.6-4.6); Lymphocytes % 16.3 %; Mean Corpuscular HGB Conc 32.4 g/dL (31.6-35.5); Mean Corpuscular Hemoglobin 30.5 pg (28.0-33.3); Mean Corpuscular Volume 94.3 fL (83.0-100.0); Mean Platelet Volume 10.6 fL (9.4-12.4); Monocytes % 9.8 %; Neutrophils # 6.6 K/mcL (1.6-8.9); Nucleated Red Blood Cells 0.3 /100 WBC (0); Platelet Count 350 K/mcL (140-400); Red Blood Count 3.31 M/mcL (3.82-4.97); Red Cell Distribution Width 17.3 % (11.5-14.5); Segmented Neutrophils % 67.9 %
[2019-05-31 08:46] LABS: BUN/Creatinine Ratio 19 (6-26); Blood Urea Nitrogen 20 mg/dL (6-20); Calcium 9.5 mg/dL (8.6-10.3); Carbon Dioxide 22 mEq/L (23-29); Chloride 106 mEq/L (98-107); Glucose 114 mg/dL (70-105); Osmolality,Calculated 295 (280-300); Sodium 141 mEq/L (136-145); eGFR For African Americans > 60 (> 60); eGFR For Non-African Americans 54 (> 60)
[2019-05-31] MEDS ORDERED: predniSONE 20 MG TABLET PO SCH (09:00)
[2019-05-31] MEDS: Furosemide 40 MG TABLET PO SCH ×2 (09:09→17:37)
[2019-05-31] MEDS: rOPINIRole 1 MG TABLET PO SCH ×2 (09:09→20:57)
[2019-05-31] MEDS: Folic Acid 1 MG TABLET PO SCH (09:10)
[2019-05-31] MEDS: Anastrozole 1 MG TABLET PO SCH (09:10)
[2019-05-31] MEDS: Multivit/Ca/Min/Fe/FA 1 TAB TABLET PO SCH (09:10)
[2019-05-31] MEDS: Aspirin 81 MG TAB.CHEW PO SCH (09:10)
[2019-05-31] MEDS: Gabapentin 300 MG CAPSULE PO SCH (17:37)
[2019-05-31] MEDS: Metoprolol XL (24 HR) Succ 50 MG TAB.ER.24H PO SCH (20:57)
[2019-05-31] MEDS: Gabapentin 400 MG CAPSULE PO SCH (23:54)
[2019-06-01] MEDS: Insulin LISPRO 300 UNITS/3 ML VIAL SQ SCH ×6 (07:05→20:20)
[2019-06-01] MEDS: Folic Acid 1 MG TABLET PO SCH (08:40)
[2019-06-01] MEDS: rOPINIRole 1 MG TABLET PO SCH ×3 (08:40→20:15)
[2019-06-01] MEDS: Aspirin 81 MG TAB.CHEW PO SCH (08:42)
[2019-06-01] MEDS: predniSONE 20 MG TABLET PO SCH (08:43)
[2019-06-01] MEDS: Anastrozole 1 MG TABLET PO SCH (08:44)
[2019-06-01] MEDS: Furosemide 40 MG TABLET PO SCH ×2 (08:44→17:15)
[2019-06-01] MEDS: Multivit/Ca/Min/Fe/FA 1 TAB TABLET PO SCH (08:45)
[2019-06-01] MEDS ORDERED: FUROSEMIDE 40 MG PO SCH (09:00)
[2019-06-01] MEDS: *HR* OxyCODONE/APAP 5/325 TABLET PO PRN ×2 (11:59→20:19)
[2019-06-01] MEDS ORDERED: Aminoglycoside Consult 1 EACH MC ONE (13:27)
[2019-06-01] MEDS: Gabapentin 300 MG CAPSULE PO SCH (17:15)
[2019-06-01] MEDS: Metoprolol XL (24 HR) Succ 50 MG TAB.ER.24H PO SCH (20:16)
[2019-06-01] MEDS: Sulfamethoxazole/Trimeth DS 1 EACH TABLET PO SCH (20:16)
[2019-06-02] MEDS: Gabapentin 400 MG CAPSULE PO SCH (00:12)
[2019-06-02 03:03] LABS: BUN/Creatinine Ratio 24 (6-26); Basophils # 0.1 K/mcL (0.0-0.2); Blood Urea Nitrogen 24 mg/dL (6-20); Calcium 9.1 mg/dL (8.6-10.3); Carbon Dioxide 22 mEq/L (23-29); Chloride 104 mEq/L (98-107); Eosinophils # 0.1 K/mcL (0.0-0.6); Eosinophils % 0.8 %; Glucose 179 mg/dL (70-105); Hematocrit 29.5 % (35.3-44.9); Hemoglobin 9.7 g/dL (11.5-15.4); Immature Granulocytes % 4.6 % (0-4); Lymphocytes # 1.2 K/mcL (0.6-4.6); Lymphocytes % 11.9 %; Mean Corpuscular HGB Conc 32.9 g/dL (31.6-35.5); Mean Corpuscular Hemoglobin 30.4 pg (28.0-33.3); Mean Corpuscular Volume 92.5 fL (83.0-100.0); Mean Platelet Volume 10.9 fL (9.4-12.4); Monocytes # 0.9 K/mcL (0.0-1.3); Monocytes % 8.8 %; Neutrophils # 7.5 K/mcL (1.6-8.9); Nucleated Red Blood Cells 0.3 /100 WBC (0); Osmolality,Calculated 295 (280-300); Platelet Count 318 K/mcL (140-400); Potassium 3.5 mEq/L (3.5-5.1); Red Blood Count 3.19 M/mcL (3.82-4.97); Red Cell Distribution Width 16.9 % (11.5-14.5); Segmented Neutrophils % 72.9 %; Sodium 138 mEq/L (136-145); White Blood Count 10.3 K/mcL (4.3-11.1); eGFR For African Americans > 60 (> 60); eGFR For Non-African Americans 57 (> 60)
[2019-06-02] MEDS: Insulin LISPRO 300 UNITS/3 ML VIAL SQ SCH ×2 (08:17→11:16)
[2019-06-02] MEDS: predniSONE 20 MG TABLET PO SCH (08:18)
[2019-06-02] MEDS: Furosemide 40 MG TABLET PO SCH (08:18)
[2019-06-02] MEDS: Sulfamethoxazole/Trimeth DS 1 EACH TABLET PO SCH (08:18)
[2019-06-02] MEDS: Anastrozole 1 MG TABLET PO SCH (08:18)
[2019-06-02] MEDS: Multivit/Ca/Min/Fe/FA 1 TAB TABLET PO SCH (08:18)
[2019-06-02] MEDS: rOPINIRole 1 MG TABLET PO SCH (08:18)
[2019-06-02] MEDS: Folic Acid 1 MG TABLET PO SCH (08:19)
[2019-06-02] MEDS: Aspirin 81 MG TAB.CHEW PO SCH (08:19)
[2019-06-02 10:10] VITALS: BP 155/96
== END 2019-06-02 13:28 | disposition home or self-care (01) | DRG 854 ==
LOC: CDU 21:03 → EMEROOARM 21:03 → CDU 05-28 03:50 → 3ANU 05-28 16:15
PROVIDERS: ADMIT Family Medicine; ATTEND Family Medicine

== ENCOUNTER 2019-07-09 19:23 | Inpatient (IN) ==
[2019-07-09] MEDS ORDERED: 0.9 % Sodium Chloride 500 ML IVC ONE (19:46)
[2019-07-09 20:29] LABS: Basophils # 0.1 K/mcL (0.0-0.2); Basophils % 0.6 %; Eosinophils # 0.1 K/mcL (0.0-0.6); Eosinophils % 0.6 %; Hematocrit 37.5 % (35.3-44.9); Hemoglobin 11.7 g/dL (11.5-15.4); Immature Granulocytes % 0.4 % (0-4); Lymphocytes # 0.8 K/mcL (0.6-4.6); Lymphocytes % 6.5 %; Mean Corpuscular HGB Conc 31.2 g/dL (31.6-35.5); Mean Corpuscular Hemoglobin 29.8 pg (28.0-33.3); Mean Corpuscular Volume 95.4 fL (83.0-100.0); Mean Platelet Volume 11.4 fL (9.4-12.4); Monocytes # 0.5 K/mcL (0.0-1.3); Monocytes % 4.7 %; Neutrophils # 10.1 K/mcL (1.6-8.9); Platelet Count 243 K/mcL (140-400); Red Blood Count 3.93 M/mcL (3.82-4.97); Red Cell Distribution Width 16.3 % (11.5-14.5); Segmented Neutrophils % 87.2 %; White Blood Count 11.6 K/mcL (4.3-11.1)
[2019-07-09 20:38] LABS: Bilirubin,Urine Negative (Negative); Blood,Urine Negative (Negative); Clarity,Urine Clear (Clear); Color,Urine Yellow (Yellow); Glucose,Urine (UA) Normal (Normal); Ketones,Urine Negative (Negative); Leukocyte Esterase,Urine Negative (Negative); Nitrite,Urine Negative (Negative); Protein,Urine 30 mg/dL (Neg-Trace); Specific Gravity,Urine 1.018 (1.010-1.025); Urobilinogen,Urine Normal (Normal)
[2019-07-09 20:41] LABS: Bacteria,Urine None Seen per hpf (None-Few); Hyaline Casts,Urine None Seen per lpf (None-Few); RBC,Urine 0-3 per hpf (0-3); Squamous Epithelial Cell,Urine Moderate per lpf (None-Few); WBC,Urine 0-3 per hpf (0-3)
[2019-07-09] MEDS ORDERED: Isovue-370 500 ML BOTTLE IVP ONE (20:46)
[2019-07-09 20:47] LABS: BUN/Creatinine Ratio 28 (6-26); Blood Urea Nitrogen 42 mg/dL (6-20); Calcium 9.9 mg/dL (8.6-10.3); Carbon Dioxide 26 mEq/L (23-29); Chloride 103 mEq/L (98-107); Glucose 165 mg/dL (70-105); Osmolality,Calculated 304 (280-300); Potassium 4.2 mEq/L (3.5-5.1); Sodium 140 mEq/L (136-145); eGFR For African Americans 43 (> 60); eGFR For Non-African Americans 36 (> 60)
[2019-07-09 20:48] LABS: Troponin I < 0.03 ng/mL (< 0.04)
[2019-07-09] MEDS ORDERED: *HR* Enoxaparin 120 MG/0.8 ML SYRINGE SQ STA (20:51)
[2019-07-09] MEDS ORDERED: Ibuprofen 400 MG TABLET PO ONE (21:19)
[2019-07-09] MEDS ORDERED: Ondansetron ODT 4 MG TAB.RAPDIS SL PRN (21:56)
[2019-07-09] MEDS ORDERED: Naloxone 0.4 MG/ML INJ IVP PRN (21:56)
[2019-07-09] MEDS ORDERED: Acetaminophen 325 MG TABLET PO PRN (21:56)
[2019-07-09] MEDS ORDERED: Dextrose Gel 15 GM/37.5 ML TUBE PO PRN ×2 (21:58)
[2019-07-09] MEDS ORDERED: D5% in Water 1,000 ML IVC PRN (21:58)
[2019-07-09] MEDS ORDERED: *HR* Dextrose 50 % in Water (Syg) 50 ML SYRINGE IVP PRN (21:58)
[2019-07-09] MEDS ORDERED: *HR* Labetalol 20 MG/4 ML SYRINGE IVP ONE (23:04)
[2019-07-09] MEDS ORDERED: 0.9 % Sodium Chloride 1,000 ML IVC ONE (23:25)
[2019-07-09] MEDS: Azithromycin 250 MG TABLET PO SCH (23:44)
[2019-07-10] MEDS ORDERED: NON-FORMULARY MEDICATION 1 EACH EACH (Ropinirole Hcl [Requip] 4 MG) PO SCH (00:15)
[2019-07-10] MEDS ORDERED: NON-FORMULARY MEDICATION 1 EACH EACH (Ropinirole Hcl [Requip] 5 MG) PO SCH (00:15)
[2019-07-10] MEDS: rOPINIRole 2 MG, rOPINIRole 3 MG PO SCH ×2 (00:28→20:28)
[2019-07-10 00:58] LABS: Hematocrit 32.8 % (35.3-44.9); Hemoglobin 10.5 g/dL (11.5-15.4); Mean Corpuscular Hemoglobin 30.1 pg (28.0-33.3); Mean Platelet Volume 11.3 fL (9.4-12.4); Platelet Count 202 K/mcL (140-400); Red Blood Count 3.49 M/mcL (3.82-4.97); Red Cell Distribution Width 16.5 % (11.5-14.5); White Blood Count 10.3 K/mcL (4.3-11.1)
[2019-07-10 01:33] LABS: Calcium 9.4 mg/dL (8.6-10.3); Potassium 3.9 mEq/L (3.5-5.1)
[2019-07-10] MEDS ORDERED: 0.9 % Sodium Chloride 250 ML IVC ONE (03:48)
[2019-07-10] MEDS ORDERED: 0.9 % Sodium Chloride 500 ML IVC ONE ×3 (04:07→05:02)
[2019-07-10] MEDS ORDERED: 0.9 % Sodium Chloride 500 ML ONE (04:13)
[2019-07-10] MEDS ORDERED: Piperacillin/Tazobactam 3.375 GM in 0.9 % Sodium Chloride Mini Bag 100 ML IVPB SCH ×2 (06:00→14:00)
[2019-07-10] MEDS: rOPINIRole 1 MG, rOPINIRole 3 MG PO SCH ×2 (09:09→15:54)
[2019-07-10] MEDS: Azithromycin 250 MG TABLET PO SCH (09:09)
[2019-07-10] MEDS: Insulin LISPRO 300 UNITS/3 ML VIAL SQ SCH ×4 (09:14→20:21)
[2019-07-10] MEDS: Ringers Solution, Lactated 1,000 ML IVC SCH ×2 (09:15→20:29)
[2019-07-10 11:52] LABS: Adenovirus Not Detected (Not Detect); Coronavirus 229E Not Detected (Not Detect); Coronavirus HKU1 Not Detected (Not Detect); Coronavirus NL63 Not Detected (Not Detect); Coronavirus OC43 Not Detected (Not Detect); Human Metapneumovirus Not Detected (Not Detect); Human Rhinovirus/Enterovirus Not Detected (Not Detect); Influenza A Subtype 2009 H1 Not Detected (Not Detect)
[2019-07-10 11:53] LABS: Bordetella Pertussis Not Detected (Not Detect); Chlamydophila pneumoniae Not Detected (Not Detect); Influenza B Not Detected (Not Detect); Mycoplasma pneumoniae Not Detected (Not Detect); Parainfluenza Virus 1 Not Detected (Not Detect); Parainfluenza Virus 2 Not Detected (Not Detect); Parainfluenza Virus 3 Not Detected (Not Detect); Parainfluenza Virus 4 Not Detected (Not Detect); Respiratory Syncytial Virus Not Detected (Not Detect)
[2019-07-10] MEDS: *HR* Enoxaparin 120 MG/0.8 ML SYRINGE SQ SCH ×2 (12:11→23:22)
[2019-07-10 15:34] LABS: VBG HCO3 22 mEq/L (21-27); VBG PCO2 30 mmHg (41-51); VBG PH 7.47 pH Units (7.32-7.42); VBG PO2 156 mmHg (25-50)
[2019-07-10] MEDS: Cefepime HCl 2,000 MG in Water for inj. (sterile) 20 ML IVP SCH (15:53)
[2019-07-10] MEDS ORDERED: Acetaminophen IV 1,000 MG/100 ML INFUS..BTL IVPB SCH (17:00)
[2019-07-10 17:45] LABS: Acinetobacter baumannii by PCR Not Detected (Not Detect); Candida albicans by PCR Not Detected (Not Detect); Candida glabrata by PCR Not Detected (Not Detect); Candida krusei by PCR Not Detected (Not Detect); Candida parapsilosis by PCR Not Detected (Not Detect); Candida tropicalis by PCR Not Detected (Not Detect); Enterobacter cloacae Cmplx PCR Not Detected (Not Detect); Enterobacteriaceae by PCR Not Detected (Not Detect); Enterococcus by PCR Not Detected (Not Detect); Escherichia coli by PCR Not Detected (Not Detect); Klebsiella oxytoca by PCR Not Detected (Not Detect); Klebsiella pneumoniae by PCR Not Detected (Not Detect); Proteus by PCR Not Detected (Not Detect); Pseudomonas aeruginosa by PCR DETECTED (Not Detect); Serratia marcescens by PCR Not Detected (Not Detect); Staphylococcus aureus by PCR Not Detected (Not Detect); Staphylococcus by PCR Not Detected (Not Detect); Streptococcus agalactiae(B)PCR Not Detected (Not Detect); Streptococcus by PCR Not Detected (Not Detect); Streptococcus pneumoniae PCR Not Detected (Not Detect); Streptococcus pyogenes (A) PCR Not Detected (Not Detect); blaKPC Carbapenem-Resist Gene Not Detected (Not Detect)
[2019-07-10] MEDS: Gabapentin 300 MG CAPSULE PO SCH (18:22)
[2019-07-10] MEDS ORDERED: Insulin LISPRO 300 UNITS/3 ML VIAL SQ SCH ×2 (21:00)
[2019-07-10] MEDS: Gabapentin 400 MG CAPSULE PO SCH (23:22)
[2019-07-10] MEDS: Acetaminophen IV 1,000 MG/100 ML INFUS..BTL IVPB SCH (23:23)
[2019-07-11] MEDS: Cefepime HCl 2,000 MG in Water for inj. (sterile) 20 ML IVP SCH ×2 (02:33→13:44)
[2019-07-11] MEDS: Acetaminophen IV 1,000 MG/100 ML INFUS..BTL IVPB SCH ×2 (04:44→11:09)
[2019-07-11 06:31] LABS: Mean Corpuscular HGB Conc 31.7 g/dL (31.6-35.5); Mean Corpuscular Hemoglobin 29.9 pg (28.0-33.3); Mean Corpuscular Volume 94.3 fL (83.0-100.0); Mean Platelet Volume 11.1 fL (9.4-12.4); Platelet Count 160 K/mcL (140-400); Red Blood Count 3.18 M/mcL (3.82-4.97); Red Cell Distribution Width 17.2 % (11.5-14.5)
[2019-07-11 06:32] LABS: Hemoglobin 9.5 g/dL (11.5-15.4)
[2019-07-11 06:59] LABS: Calcium 9.3 mg/dL (8.6-10.3); Potassium 3.4 mEq/L (3.5-5.1)
[2019-07-11] MEDS ORDERED: Potassium Chloride Elixir 20 MEQ/15 ML UDC PO ONE ×2 (07:13→09:00)
[2019-07-11] MEDS: Insulin LISPRO 300 UNITS/3 ML VIAL SQ SCH ×4 (08:42→21:42)
[2019-07-11] MEDS ORDERED: NON-FORMULARY MEDICATION 1 EACH EACH (Ezetimibe [Zetia] 10 MG) PO SCH (09:00)
[2019-07-11] MEDS: allopurinoL 100 MG TABLET PO SCH (09:20)
[2019-07-11] MEDS: rOPINIRole 1 MG, rOPINIRole 3 MG PO SCH ×2 (09:20→16:55)
[2019-07-11] MEDS: Aspirin 81 MG TAB.CHEW PO SCH (09:21)
[2019-07-11] MEDS: Anastrozole 1 MG TABLET PO SCH (09:21)
[2019-07-11] MEDS: Loratadine 10 MG TABLET PO SCH (09:21)
[2019-07-11] MEDS: Folic Acid 1 MG TABLET PO SCH (09:21)
[2019-07-11] MEDS ORDERED: Aminoglycoside Consult 1 EACH MC ONE (12:19)
[2019-07-11] MEDS: Gabapentin 300 MG CAPSULE PO SCH (16:54)
[2019-07-11] MEDS: *HR* Heparin 5,000 UNIT/ML VIAL SQ SCH (16:55)
[2019-07-11] MEDS: rOPINIRole 2 MG, rOPINIRole 3 MG PO SCH (21:58)
[2019-07-11] MEDS: Gabapentin 400 MG CAPSULE PO SCH (21:59)
[2019-07-12] MEDS: Cefepime HCl 2,000 MG in Water for inj. (sterile) 20 ML IVP SCH ×2 (02:02→13:24)
[2019-07-12 05:34] LABS: Hematocrit 29.3 % (35.3-44.9); Mean Corpuscular HGB Conc 30.7 g/dL (31.6-35.5); Mean Corpuscular Hemoglobin 28.7 pg (28.0-33.3); Mean Corpuscular Volume 93.3 fL (83.0-100.0); Mean Platelet Volume 11.7 fL (9.4-12.4); Platelet Count 175 K/mcL (140-400); Red Blood Count 3.14 M/mcL (3.82-4.97); Red Cell Distribution Width 16.8 % (11.5-14.5); White Blood Count 5.2 K/mcL (4.3-11.1)
[2019-07-12] MEDS: *HR* Heparin 5,000 UNIT/ML VIAL SQ SCH ×2 (05:42→17:25)
[2019-07-12 05:51] LABS: BUN/Creatinine Ratio 16 (6-26); Blood Urea Nitrogen 17 mg/dL (6-20); Calcium 9.3 mg/dL (8.6-10.3); Carbon Dioxide 20 mEq/L (23-29); Chloride 110 mEq/L (98-107); Glucose 113 mg/dL (70-105); Osmolality,Calculated 286 (280-300); Potassium 3.5 mEq/L (3.5-5.1); Sodium 137 mEq/L (136-145); eGFR For African Americans > 60 (> 60); eGFR For Non-African Americans 52 (> 60)
[2019-07-12] MEDS: Anastrozole 1 MG TABLET PO SCH (09:46)
[2019-07-12] MEDS: rOPINIRole 1 MG, rOPINIRole 3 MG PO SCH ×2 (09:46→17:25)
[2019-07-12] MEDS: Loratadine 10 MG TABLET PO SCH (09:46)
[2019-07-12] MEDS: Folic Acid 1 MG TABLET PO SCH (09:46)
[2019-07-12] MEDS: Aspirin 81 MG TAB.CHEW PO SCH (09:46)
[2019-07-12] MEDS: allopurinoL 100 MG TABLET PO SCH (09:47)
[2019-07-12] MEDS: Insulin LISPRO 300 UNITS/3 ML VIAL SQ SCH ×4 (10:26→20:58)
[2019-07-12] MEDS: Furosemide 40 MG TABLET PO SCH (11:49)
[2019-07-12] MEDS ORDERED: Isovue-370 500 ML BOTTLE IVP ONE (11:52)
[2019-07-12] MEDS: Gabapentin 300 MG CAPSULE PO SCH (17:25)
[2019-07-12] MEDS ORDERED: Furosemide 40 MG TABLET PO SCH (18:00)
[2019-07-12] MEDS: rOPINIRole 2 MG, rOPINIRole 3 MG PO SCH (21:16)
[2019-07-12] MEDS: Gabapentin 400 MG CAPSULE PO SCH (22:59)
[2019-07-13] MEDS: Cefepime HCl 2,000 MG in Water for inj. (sterile) 20 ML IVP SCH (04:27)
[2019-07-13] MEDS: *HR* Heparin 5,000 UNIT/ML VIAL SQ SCH (04:28)
[2019-07-13 08:40] LABS: Basophils # 0.1 K/mcL (0.0-0.2); Basophils % 1.3 %; Eosinophils # 0.1 K/mcL (0.0-0.6); Eosinophils % 1.9 %; Hematocrit 30.9 % (35.3-44.9); Hemoglobin 9.7 g/dL (11.5-15.4); Immature Granulocytes % 4.7 % (0-4); Lymphocytes # 1.2 K/mcL (0.6-4.6); Lymphocytes % 25.9 %; Mean Corpuscular HGB Conc 31.4 g/dL (31.6-35.5); Mean Corpuscular Hemoglobin 29.4 pg (28.0-33.3); Mean Corpuscular Volume 93.6 fL (83.0-100.0); Mean Platelet Volume 11.2 fL (9.4-12.4); Monocytes # 0.5 K/mcL (0.0-1.3); Monocytes % 11.4 %; Neutrophils # 2.5 K/mcL (1.6-8.9); Platelet Count 194 K/mcL (140-400); Red Cell Distribution Width 16.5 % (11.5-14.5); Segmented Neutrophils % 54.8 %; White Blood Count 4.6 K/mcL (4.3-11.1)
[2019-07-13 08:42] VITALS: BP 130/97
[2019-07-13 08:58] LABS: BUN/Creatinine Ratio 12 (6-26); Blood Urea Nitrogen 13 mg/dL (6-20); Calcium 9.8 mg/dL (8.6-10.3); Carbon Dioxide 22 mEq/L (23-29); Chloride 107 mEq/L (98-107); Glucose 126 mg/dL (70-105); Osmolality,Calculated 286 (280-300); Potassium 3.4 mEq/L (3.5-5.1); Sodium 137 mEq/L (136-145); eGFR For African Americans > 60 (> 60); eGFR For Non-African Americans 54 (> 60)
[2019-07-13] MEDS ORDERED: Metoprolol XL (24 HR) Succ 50 MG TAB.ER.24H PO SCH (09:00)
[2019-07-13] MEDS: rOPINIRole 1 MG, rOPINIRole 3 MG PO SCH (09:07)
[2019-07-13] MEDS: allopurinoL 100 MG TABLET PO SCH (09:07)
[2019-07-13] MEDS: Aspirin 81 MG TAB.CHEW PO SCH (09:08)
[2019-07-13] MEDS: Anastrozole 1 MG TABLET PO SCH (09:08)
[2019-07-13] MEDS: Loratadine 10 MG TABLET PO SCH (09:08)
[2019-07-13] MEDS: Folic Acid 1 MG TABLET PO SCH (09:08)
[2019-07-13] MEDS: Furosemide 40 MG TABLET PO SCH (09:08)
[2019-07-13] MEDS: Insulin LISPRO 300 UNITS/3 ML VIAL SQ SCH (09:09)
== END 2019-07-13 12:20 | disposition home or self-care (01) ==
LOC: EMEROOARM 19:23 → 2ANU 19:23 → SUATTDRO 22:08 → 2ANU 23:00
PROVIDERS: ADMIT Internal Medicine; ATTEND Internal Medicine

== ENCOUNTER 2019-07-17 11:23 | Inpatient (IN) ==
[2019-07-17] MEDS ORDERED: 0.9 % Sodium Chloride 1,000 ML IVC ONE (11:50)
[2019-07-17 12:40] LABS: ABG Base Excess 1 mEq/L (-2 to 3); ABG HCO3 25 mEq/L (21-27); ABG Oxygen Saturation 96 % (95-98); ABG PCO2 36 mmHg (35-45); ABG PH 7.45 pH Units (7.32-7.45); ABG PO2 78 mmHg (85-104); ABG TCO2 26 mEq/L (20-26)
[2019-07-17 12:52] LABS: Hematocrit 30.5 % (35.3-44.9); Hemoglobin 9.7 g/dL (11.5-15.4); Mean Corpuscular HGB Conc 31.8 g/dL (31.6-35.5); Mean Corpuscular Hemoglobin 29.5 pg (28.0-33.3); Mean Corpuscular Volume 92.7 fL (83.0-100.0); Mean Platelet Volume 10.9 fL (9.4-12.4); Platelet Count 333 K/mcL (140-400); Red Blood Count 3.29 M/mcL (3.82-4.97); Red Cell Distribution Width 16.8 % (11.5-14.5)
[2019-07-17 12:53] LABS: INR 1.3; Prothrombin Time 14.8 Seconds (9.4-12.1)
[2019-07-17 12:56] LABS: Activated Partial Thrombo Time 39.2 Seconds (26.0-36.0)
[2019-07-17 13:11] LABS: White Blood Count 10.7 K/mcL (4.3-11.1)
[2019-07-17 13:12] LABS: Lymphocytes # 1.5 K/mcL (0.6-4.6); Monocytes # 0.9 K/mcL (0.0-1.3); Neutrophils # 8.4 K/mcL (1.6-8.9); Platelet Estimate Normal (Normal)
[2019-07-17 13:13] LABS: Albumin 3.9 g/dL (3.5-5.7); Albumin/Globulin Ratio 1.1 (1.1-2.2); Anisocytosis 1+ (Not Present); Bilirubin,Direct 0.2 mg/dL (0.0-0.2); Bilirubin,Indirect 0.1 mg/dL (0.0-1.0); Bilirubin,Total 0.3 mg/dL (0.3-1.0); Calcium 9.9 mg/dL (8.6-10.3); Globulin 3.5 g/dL (2.4-3.5); Magnesium 1.5 mg/dL (1.6-2.6); Microcytosis Present (Not Present); Phosphorous 3.5 mg/dL (2.7-4.5); Potassium 3.7 mEq/L (3.5-5.1); Total Protein 7.4 g/dL (6.4-8.9); Troponin I 0.08 ng/mL (< 0.04)
[2019-07-17 13:20] LABS: Bilirubin,Urine Negative (Negative); Blood,Urine Negative (Negative); Clarity,Urine Clear (Clear); Color,Urine Yellow (Yellow); Glucose,Urine (UA) Normal (Normal); Ketones,Urine Negative (Negative); Leukocyte Esterase,Urine Negative (Negative); Nitrite,Urine Negative (Negative); Protein,Urine Trace mg/dL (Neg-Trace); Specific Gravity,Urine 1.016 (1.010-1.025); Urobilinogen,Urine Normal (Normal)
[2019-07-17] MEDS ORDERED: Cefepime HCl 1,000 MG in Water for inj. (sterile) 10 ML IVP STA (14:27)
[2019-07-17] MEDS ORDERED: Aspirin 325 MG TABLET PO ONE (14:27)
[2019-07-17] MEDS ORDERED: Naloxone 0.4 MG/ML INJ IVP PRN (15:14)
[2019-07-17] MEDS ORDERED: Ondansetron 4 MG/2 ML VIAL IVP PRN (15:14)
[2019-07-17] MEDS ORDERED: Vancomycin 1,750 MG in 0.9 % Sodium Chloride 250 ML IVPB SCH (16:00)
[2019-07-17] MEDS ORDERED: Dextrose Gel 15 GM/37.5 ML TUBE PO PRN ×2 (18:10)
[2019-07-17] MEDS ORDERED: D5% in Water 1,000 ML IVC PRN (18:10)
[2019-07-17] MEDS ORDERED: *HR* Dextrose 50 % in Water (Syg) 50 ML SYRINGE IVP PRN (18:10)
[2019-07-17] MEDS ORDERED: Ipratropium/Albuterol Neb 3 ML IH PRN (18:19)
[2019-07-17] MEDS: Insulin LISPRO 300 UNITS/3 ML VIAL SQ SCH (18:20)
[2019-07-17] MEDS: *HR* Heparin 5,000 UNIT/ML VIAL SQ SCH (21:31)
[2019-07-17] MEDS: Acetaminophen 325 MG TABLET PO PRN (22:22)
[2019-07-17] MEDS ORDERED: Gabapentin 300 MG CAPSULE PO ONE (23:49)
[2019-07-18 01:04] LABS: Basophils # 0.1 K/mcL (0.0-0.2); Basophils % 0.6 %; Eosinophils # 0.1 K/mcL (0.0-0.6); Eosinophils % 0.7 %; Hematocrit 27.9 % (35.3-44.9); Hemoglobin 8.9 g/dL (11.5-15.4); Immature Granulocytes % 4.1 % (0-4); Lymphocytes # 1.1 K/mcL (0.6-4.6); Mean Corpuscular HGB Conc 31.9 g/dL (31.6-35.5); Mean Corpuscular Hemoglobin 29.5 pg (28.0-33.3); Mean Corpuscular Volume 92.4 fL (83.0-100.0); Monocytes # 0.9 K/mcL (0.0-1.3); Monocytes % 10.2 %; Neutrophils # 6.2 K/mcL (1.6-8.9); Platelet Count 310 K/mcL (140-400); Red Blood Count 3.02 M/mcL (3.82-4.97); Red Cell Distribution Width 16.9 % (11.5-14.5); Segmented Neutrophils % 71.4 %; White Blood Count 8.7 K/mcL (4.3-11.1)
[2019-07-18 01:25] LABS: % Iron Saturation 4 % (15-50); BUN/Creatinine Ratio 26 (6-26); Blood Urea Nitrogen 27 mg/dL (6-20); Calcium 9.5 mg/dL (8.6-10.3); Carbon Dioxide 23 mEq/L (23-29); Chloride 105 mEq/L (98-107); Glucose 125 mg/dL (70-105); Iron 13 mcg/dL (50-170); Magnesium 1.7 mg/dL (1.6-2.6); Osmolality,Calculated 293 (280-300); Potassium 3.2 mEq/L (3.5-5.1); Sodium 138 mEq/L (136-145); Transferrin 223 mg/dL (203-362); eGFR For African Americans > 60 (> 60); eGFR For Non-African Americans 54 (> 60)
[2019-07-18 01:43] LABS: Ferritin 80 ng/mL (10-120)
[2019-07-18 01:58] LABS: Folate > 22.3 ng/mL (3.0-16.0); Vitamin B12 492 pg/mL (250-1100)
[2019-07-18 02:09] LABS: Estimated Average Glucose 143 mg/dl
[2019-07-18] MEDS: Cefepime HCl 1,000 MG in 0.9 % Sodium Chloride Mini Bag 100 ML IVPB SCH ×2 (05:47→17:41)
[2019-07-18] MEDS: *HR* Heparin 5,000 UNIT/ML VIAL SQ SCH ×3 (06:27→20:53)
[2019-07-18] MEDS: Insulin DETEMIR 100 UNIT/ML X5UNITS SQ SCH (07:34)
[2019-07-18] MEDS: Multivit/Ca/Min/Fe/FA 1 TAB TABLET PO SCH (10:19)
[2019-07-18] MEDS: allopurinoL 100 MG TABLET PO SCH (10:19)
[2019-07-18] MEDS: Aspirin 81 MG TAB.CHEW PO SCH (10:19)
[2019-07-18] MEDS: methylPREDNISolone 125 MG/2 ML VIAL IVP SCH (10:19)
[2019-07-18] MEDS: Anastrozole 1 MG TABLET PO SCH (10:19)
[2019-07-18] MEDS: rOPINIRole 1 MG TABLET PO SCH ×3 (10:19→20:52)
[2019-07-18] MEDS: Loratadine 10 MG TABLET PO SCH (10:19)
[2019-07-18] MEDS: Folic Acid 1 MG TABLET PO SCH (10:19)
[2019-07-18] MEDS: Insulin LISPRO 300 UNITS/3 ML VIAL SQ SCH ×3 (10:27→17:44)
[2019-07-18] MEDS: Metoprolol XL (24 HR) Succ 50 MG TAB.ER.24H PO SCH ×2 (10:27→20:52)
[2019-07-18] MEDS: Furosemide 40 MG TABLET PO SCH ×2 (10:33→17:41)
[2019-07-18] MEDS: (Ezetimibe [Zetia] 10 MG) PO SCH (10:46)
[2019-07-18] MEDS: Acetaminophen 325 MG TABLET PO PRN (11:16)
[2019-07-18] MEDS ORDERED: Iron Sucrose Complex 250 MG in 0.9 % Sodium Chloride 250 ML IVPB SCH (17:00)
[2019-07-18] MEDS: Gabapentin 300 MG CAPSULE PO SCH (17:41)
[2019-07-18] MEDS: Ringers Solution, Lactated 1,000 ML IVC SCH (17:42)
[2019-07-18] MEDS: Gabapentin 400 MG CAPSULE PO SCH (23:35)
[2019-07-19] MEDS: Insulin LISPRO 300 UNITS/3 ML VIAL SQ SCH ×4 (00:49→21:08)
[2019-07-19 01:19] LABS: Basophils % 0.1 %; Hematocrit 28.1 % (35.3-44.9); Hemoglobin 8.9 g/dL (11.5-15.4); Immature Granulocytes % 1.7 % (0-4); Lymphocytes # 0.7 K/mcL (0.6-4.6); Lymphocytes % 5.2 %; Mean Corpuscular HGB Conc 31.7 g/dL (31.6-35.5); Mean Corpuscular Hemoglobin 28.5 pg (28.0-33.3); Mean Corpuscular Volume 90.1 fL (83.0-100.0); Mean Platelet Volume 10.5 fL (9.4-12.4); Monocytes # 0.3 K/mcL (0.0-1.3); Monocytes % 2.5 %; Neutrophils # 12.1 K/mcL (1.6-8.9); Platelet Count 319 K/mcL (140-400); Red Blood Count 3.12 M/mcL (3.82-4.97); Red Cell Distribution Width 16.4 % (11.5-14.5); Segmented Neutrophils % 90.5 %
[2019-07-19 01:20] LABS: White Blood Count 13.4 K/mcL (4.3-11.1)
[2019-07-19 01:37] LABS: BUN/Creatinine Ratio 20 (6-26); Blood Urea Nitrogen 22 mg/dL (6-20); Calcium 9.4 mg/dL (8.6-10.3); Carbon Dioxide 23 mEq/L (23-29); Chloride 104 mEq/L (98-107); Glucose 208 mg/dL (70-105); Magnesium 1.6 mg/dL (1.6-2.6); Osmolality,Calculated 289 (280-300); Potassium 3.2 mEq/L (3.5-5.1); Sodium 135 mEq/L (136-145); eGFR For African Americans > 60 (> 60); eGFR For Non-African Americans 52 (> 60)
[2019-07-19] MEDS: *HR* Heparin 5,000 UNIT/ML VIAL SQ SCH ×3 (05:42→21:01)
[2019-07-19] MEDS: Cefepime HCl 1,000 MG in 0.9 % Sodium Chloride Mini Bag 100 ML IVPB SCH ×2 (05:43→18:14)
[2019-07-19] MEDS ORDERED: Anastrozole 1 MG TABLET PO ONE (09:55)
[2019-07-19] MEDS ORDERED: Multivit/Ca/Min/Fe/FA 1 TAB TABLET ONE (09:55)
[2019-07-19] MEDS ORDERED: allopurinoL 100 MG TABLET ONE (09:55)
[2019-07-19] MEDS ORDERED: Folic Acid 1 MG TABLET ONE (09:55)
[2019-07-19] MEDS ORDERED: Furosemide 40 MG TABLET PO ONE (09:55)
[2019-07-19] MEDS ORDERED: methylPREDNISolone 125 MG/2 ML VIAL ONE (09:55)
[2019-07-19] MEDS ORDERED: rOPINIRole 1 MG TABLET ONE (09:55)
[2019-07-19] MEDS ORDERED: Aspirin 81 MG TAB.CHEW ONE (09:55)
[2019-07-19] MEDS ORDERED: Loratadine 10 MG TABLET ONE (09:55)
[2019-07-19] MEDS: Aspirin 81 MG TAB.CHEW PO SCH (17:28)
[2019-07-19] MEDS: Anastrozole 1 MG TABLET PO SCH (17:28)
[2019-07-19] MEDS: Loratadine 10 MG TABLET PO SCH (17:29)
[2019-07-19] MEDS: Folic Acid 1 MG TABLET PO SCH (17:29)
[2019-07-19] MEDS: Furosemide 40 MG TABLET PO SCH ×4 (17:35→19:58)
[2019-07-19] MEDS: Insulin DETEMIR 100 UNIT/ML X5UNITS SQ SCH (17:35)
[2019-07-19] MEDS: rOPINIRole 1 MG TABLET PO SCH ×3 (17:36→21:02)
[2019-07-19] MEDS: methylPREDNISolone 125 MG/2 ML VIAL IVP SCH (17:36)
[2019-07-19] MEDS: Multivit/Ca/Min/Fe/FA 1 TAB TABLET PO SCH (17:37)
[2019-07-19] MEDS: allopurinoL 100 MG TABLET PO SCH (17:37)
[2019-07-19] MEDS: (Ezetimibe [Zetia] 10 MG) PO SCH (17:55)
[2019-07-19] MEDS: Gabapentin 300 MG CAPSULE PO SCH (18:13)
[2019-07-19] MEDS: Ringers Solution, Lactated 1,000 ML IVC SCH ×2 (19:58→22:11)
[2019-07-19] MEDS: Metoprolol XL (24 HR) Succ 50 MG TAB.ER.24H PO SCH (21:02)
[2019-07-19] MEDS: Gabapentin 400 MG CAPSULE PO SCH (22:12)
[2019-07-20 04:08] LABS: Basophils % 0.1 %; Hematocrit 27.4 % (35.3-44.9); Hemoglobin 8.5 g/dL (11.5-15.4); Lymphocytes # 0.9 K/mcL (0.6-4.6); Lymphocytes % 6.1 %; Mean Corpuscular Hemoglobin 28.2 pg (28.0-33.3); Mean Platelet Volume 10.7 fL (9.4-12.4); Monocytes # 0.6 K/mcL (0.0-1.3); Monocytes % 4.1 %; Neutrophils # 13.2 K/mcL (1.6-8.9); Platelet Count 340 K/mcL (140-400); Red Blood Count 3.01 M/mcL (3.82-4.97); Red Cell Distribution Width 16.7 % (11.5-14.5); Segmented Neutrophils % 87.7 %; White Blood Count 15.1 K/mcL (4.3-11.1)
[2019-07-20 04:30] LABS: BUN/Creatinine Ratio 29 (6-26); Blood Urea Nitrogen 30 mg/dL (6-20); Calcium 8.8 mg/dL (8.6-10.3); Carbon Dioxide 22 mEq/L (23-29); Chloride 106 mEq/L (98-107); Glucose 241 mg/dL (70-105); Magnesium 1.8 mg/dL (1.6-2.6); Osmolality,Calculated 296 (280-300); Potassium 3.4 mEq/L (3.5-5.1); Sodium 136 mEq/L (136-145); eGFR For African Americans > 60 (> 60); eGFR For Non-African Americans 55 (> 60)
[2019-07-20] MEDS: Cefepime HCl 1,000 MG in 0.9 % Sodium Chloride Mini Bag 100 ML IVPB SCH ×2 (05:13→17:35)
[2019-07-20] MEDS: *HR* Heparin 5,000 UNIT/ML VIAL SQ SCH ×3 (05:13→20:54)
[2019-07-20] MEDS: allopurinoL 100 MG TABLET PO SCH (08:35)
[2019-07-20] MEDS: rOPINIRole 1 MG TABLET PO SCH ×3 (08:35→20:53)
[2019-07-20] MEDS: Aspirin 81 MG TAB.CHEW PO SCH (08:35)
[2019-07-20] MEDS: Insulin LISPRO 300 UNITS/3 ML VIAL SQ SCH ×4 (08:36→20:54)
[2019-07-20] MEDS: Loratadine 10 MG TABLET PO SCH (08:36)
[2019-07-20] MEDS: Multivit/Ca/Min/Fe/FA 1 TAB TABLET PO SCH (08:36)
[2019-07-20] MEDS: Anastrozole 1 MG TABLET PO SCH (08:36)
[2019-07-20] MEDS: Folic Acid 1 MG TABLET PO SCH (08:36)
[2019-07-20] MEDS: (Ezetimibe [Zetia] 10 MG) PO SCH (08:36)
[2019-07-20] MEDS: methylPREDNISolone 125 MG/2 ML VIAL IVP SCH (08:37)
[2019-07-20] MEDS: Insulin DETEMIR 100 UNIT/ML X5UNITS SQ SCH (10:13)
[2019-07-20] MEDS: Gabapentin 300 MG CAPSULE PO SCH (17:34)
[2019-07-20] MEDS: Furosemide 40 MG TABLET PO SCH (17:34)
[2019-07-20] MEDS ORDERED: *HR* Labetalol 20 MG/4 ML SYRINGE IVP ONE (17:37)
[2019-07-20] MEDS: Metoprolol XL (24 HR) Succ 50 MG TAB.ER.24H PO SCH (20:54)
[2019-07-21] MEDS: Gabapentin 400 MG CAPSULE PO SCH ×2 (00:05→23:15)
[2019-07-21] MEDS: amLODIPine 5 MG TABLET PO SCH ×2 (00:06→09:50)
[2019-07-21] MEDS: Cefepime HCl 1,000 MG in 0.9 % Sodium Chloride Mini Bag 100 ML IVPB SCH ×2 (05:45→17:00)
[2019-07-21] MEDS: *HR* Heparin 5,000 UNIT/ML VIAL SQ SCH ×3 (05:49→21:35)
[2019-07-21 07:49] LABS: Basophils % 0.2 %; Eosinophils % 0.1 %; Hematocrit 29.5 % (35.3-44.9); Hemoglobin 9.3 g/dL (11.5-15.4); Immature Granulocytes % 3.4 % (0-4); Lymphocytes # 1.5 K/mcL (0.6-4.6); Lymphocytes % 10.1 %; Mean Corpuscular HGB Conc 31.5 g/dL (31.6-35.5); Mean Corpuscular Hemoglobin 28.8 pg (28.0-33.3); Mean Corpuscular Volume 91.3 fL (83.0-100.0); Mean Platelet Volume 10.5 fL (9.4-12.4); Monocytes # 0.8 K/mcL (0.0-1.3); Monocytes % 5.4 %; Neutrophils # 11.6 K/mcL (1.6-8.9); Nucleated Red Blood Cells 0.2 /100 WBC (0); Platelet Count 408 K/mcL (140-400); Red Blood Count 3.23 M/mcL (3.82-4.97); Red Cell Distribution Width 16.9 % (11.5-14.5); Segmented Neutrophils % 80.8 %; White Blood Count 14.4 K/mcL (4.3-11.1)
[2019-07-21 08:01] LABS: BUN/Creatinine Ratio 35 (6-26); Blood Urea Nitrogen 35 mg/dL (6-20); Calcium 9.3 mg/dL (8.6-10.3); Carbon Dioxide 23 mEq/L (23-29); Chloride 104 mEq/L (98-107); Glucose 229 mg/dL (70-105); Magnesium 1.8 mg/dL (1.6-2.6); Osmolality,Calculated 301 (280-300); Potassium 3.5 mEq/L (3.5-5.1); Sodium 138 mEq/L (136-145); eGFR For African Americans > 60 (> 60); eGFR For Non-African Americans 56 (> 60)
[2019-07-21] MEDS: rOPINIRole 1 MG TABLET PO SCH ×3 (09:49→21:34)
[2019-07-21] MEDS: Folic Acid 1 MG TABLET PO SCH (09:50)
[2019-07-21] MEDS: Loratadine 10 MG TABLET PO SCH (09:50)
[2019-07-21] MEDS: Furosemide 40 MG TABLET PO SCH ×2 (09:50→17:01)
[2019-07-21] MEDS: Aspirin 81 MG TAB.CHEW PO SCH (09:50)
[2019-07-21] MEDS: Anastrozole 1 MG TABLET PO SCH (09:50)
[2019-07-21] MEDS: allopurinoL 100 MG TABLET PO SCH (09:50)
[2019-07-21] MEDS: methylPREDNISolone 125 MG/2 ML VIAL IVP SCH (09:50)
[2019-07-21] MEDS: Multivit/Ca/Min/Fe/FA 1 TAB TABLET PO SCH (09:50)
[2019-07-21] MEDS: Insulin LISPRO 300 UNITS/3 ML VIAL SQ SCH ×3 (09:51→17:00)
[2019-07-21] MEDS: Insulin DETEMIR 100 UNIT/ML X5UNITS SQ SCH (09:51)
[2019-07-21] MEDS: (Ezetimibe [Zetia] 10 MG) PO SCH (09:51)
[2019-07-21] MEDS ORDERED: Lidocaine -MPF 1% 5 ML AMPUL INFILT ONE (10:27)
[2019-07-21] MEDS: Gabapentin 300 MG CAPSULE PO SCH (17:01)
[2019-07-21] MEDS: Metoprolol XL (24 HR) Succ 50 MG TAB.ER.24H PO SCH (21:35)
[2019-07-22 04:20] LABS: Basophils % 0.3 %; Hematocrit 29.6 % (35.3-44.9); Hemoglobin 9.1 g/dL (11.5-15.4); Immature Granulocytes % 4.1 % (0-4); Lymphocytes # 1.1 K/mcL (0.6-4.6); Lymphocytes % 10.5 %; Mean Corpuscular HGB Conc 30.7 g/dL (31.6-35.5); Mean Corpuscular Hemoglobin 27.9 pg (28.0-33.3); Mean Corpuscular Volume 90.8 fL (83.0-100.0); Mean Platelet Volume 10.3 fL (9.4-12.4); Monocytes # 0.6 K/mcL (0.0-1.3); Monocytes % 5.2 %; Neutrophils # 8.6 K/mcL (1.6-8.9); Nucleated Red Blood Cells 0.5 /100 WBC (0); Platelet Count 381 K/mcL (140-400); Red Blood Count 3.26 M/mcL (3.82-4.97); Red Cell Distribution Width 16.8 % (11.5-14.5); Segmented Neutrophils % 79.9 %; White Blood Count 10.7 K/mcL (4.3-11.1)
[2019-07-22 04:33] LABS: BUN/Creatinine Ratio 39 (6-26); Blood Urea Nitrogen 33 mg/dL (6-20); Calcium 9.2 mg/dL (8.6-10.3); Carbon Dioxide 24 mEq/L (23-29); Chloride 104 mEq/L (98-107); Glucose 232 mg/dL (70-105); Magnesium 1.9 mg/dL (1.6-2.6); Osmolality,Calculated 297 (280-300); Potassium 3.5 mEq/L (3.5-5.1); Sodium 136 mEq/L (136-145); eGFR For African Americans > 60 (> 60); eGFR For Non-African Americans > 60 (> 60)
[2019-07-22] MEDS: Cefepime HCl 1,000 MG in 0.9 % Sodium Chloride Mini Bag 100 ML IVPB SCH (05:50)
[2019-07-22] MEDS: *HR* Heparin 5,000 UNIT/ML VIAL SQ SCH (05:50)
[2019-07-22 08:29] VITALS: BP 178/103
[2019-07-22] MEDS: amLODIPine 5 MG TABLET PO SCH (08:54)
[2019-07-22] MEDS: rOPINIRole 1 MG TABLET PO SCH (08:54)
[2019-07-22] MEDS: Multivit/Ca/Min/Fe/FA 1 TAB TABLET PO SCH (08:54)
[2019-07-22] MEDS: allopurinoL 100 MG TABLET PO SCH (08:54)
[2019-07-22] MEDS: Furosemide 40 MG TABLET PO SCH (08:55)
[2019-07-22] MEDS: Aspirin 81 MG TAB.CHEW PO SCH (08:55)
[2019-07-22] MEDS: Anastrozole 1 MG TABLET PO SCH (08:55)
[2019-07-22] MEDS: Insulin DETEMIR 100 UNIT/ML X5UNITS SQ SCH (08:55)
[2019-07-22] MEDS: Loratadine 10 MG TABLET PO SCH (08:55)
[2019-07-22] MEDS: Folic Acid 1 MG TABLET PO SCH (08:55)
[2019-07-22] MEDS: Insulin LISPRO 300 UNITS/3 ML VIAL SQ SCH ×2 (08:56→13:03)
[2019-07-22] MEDS: (Ezetimibe [Zetia] 10 MG) PO SCH (08:56)
[2019-07-22] MEDS ORDERED: predniSONE 10 MG TABLET PO SCH (09:00)
[2019-07-22] MEDS ORDERED: Aminoglycoside Consult 1 EACH MC ONE (13:34)
== END 2019-07-22 13:35 | disposition home health service (06) | DRG 872 ==
LOC: EMEROOARM 11:23 → 3BNU 11:23 → SUATTDRO 15:55 → 3BNU 16:33
PROVIDERS: ADMIT Pharmacist; ATTEND Pharmacist

== ENCOUNTER 2019-10-24 22:02 | Inpatient (IN) ==
[2019-10-24 23:37] LABS: Bacteria,Urine Few per hpf (None-Few); Bilirubin,Urine Negative (Negative); Blood,Urine Negative (Negative); Clarity,Urine Clear (Clear); Color,Urine Light-Yellow (Yellow); Glucose,Urine (UA) Normal (Normal); Ketones,Urine Negative (Negative); Leukocyte Esterase,Urine Trace (Negative); Mucus,Urine Few per lpf (None-Few); Nitrite,Urine Negative (Negative); Protein,Urine 70 mg/dL (Neg-Trace); RBC,Urine 0-3 per hpf (0-3); Specific Gravity,Urine 1.016 (1.010-1.025); Urobilinogen,Urine Normal (Normal)
[2019-10-25 00:16] LABS: Basophils % 0.4 %; Eosinophils % 0.3 %; Hematocrit 37.6 % (35.3-44.9); Hemoglobin 12.1 g/dL (11.5-15.4); Immature Granulocytes % 0.4 % (0-4); Lymphocytes # 0.5 K/mcL (0.6-4.6); Lymphocytes % 4.7 %; Mean Corpuscular HGB Conc 32.2 g/dL (31.6-35.5); Mean Corpuscular Hemoglobin 30.2 pg (28.0-33.3); Mean Corpuscular Volume 93.8 fL (83.0-100.0); Mean Platelet Volume 11.6 fL (9.4-12.4); Monocytes # 0.5 K/mcL (0.0-1.3); Monocytes % 4.6 %; Neutrophils # 9.2 K/mcL (1.6-8.9); Platelet Count 164 K/mcL (140-400); Red Blood Count 4.01 M/mcL (3.82-4.97); Segmented Neutrophils % 89.6 %; White Blood Count 10.2 K/mcL (4.3-11.1)
[2019-10-25] MEDS ORDERED: Isovue-370 500 ML BOTTLE IVP ONE (00:37)
[2019-10-25 00:39] LABS: Alanine Aminotransferase 36 Units/L (7-52); Albumin 4.4 g/dL (3.5-5.7); Albumin/Globulin Ratio 1.4 (1.1-2.2); Alkaline Phosphatase 87 Units/L (34-104); Aspartate Amino Transferase 22 Units/L (13-39); BUN/Creatinine Ratio 35 (6-26); Bilirubin,Direct 0.1 mg/dL (0.0-0.2); Bilirubin,Indirect 0.3 mg/dL (0.0-1.0); Bilirubin,Total 0.4 mg/dL (0.3-1.0); Blood Urea Nitrogen 46 mg/dL (6-20); Calcium 9.8 mg/dL (8.6-10.3); Carbon Dioxide 24 mEq/L (23-29); Chloride 97 mEq/L (98-107); Globulin 3.1 g/dL (2.4-3.5); Glucose 127 mg/dL (70-105); Osmolality,Calculated 291 (280-300); Potassium 3.8 mEq/L (3.5-5.1); Sodium 134 mEq/L (136-145); Total Protein 7.5 g/dL (6.4-8.9); Troponin I < 0.03 ng/mL (< 0.04); eGFR For African Americans 50 (> 60); eGFR For Non-African Americans 41 (> 60)
[2019-10-25] MEDS: 0.9 % Sodium Chloride 1,000 ML IVC SCH ×4 (00:40→03:31)
[2019-10-25] MEDS ORDERED: Vancomycin 1,750 MG in 0.9 % Sodium Chloride 250 ML IVPB ONE (00:41)
[2019-10-25] MEDS ORDERED: Metoprolol 100 MG TABLET PO ONE (00:43)
[2019-10-25] MEDS ORDERED: Vancomycin 1,750 MG/517.5 ML IV.SOLN IVPB ONE (01:00)
[2019-10-25 02:00] LABS: VBG HCO3 24 mEq/L (21-27); VBG PCO2 39 mmHg (41-51); VBG PO2 82 mmHg (25-50)
[2019-10-25] MEDS ORDERED: Piperacillin/Tazobactam 3.375 GM in 0.9 % Sodium Chloride Mini Bag 100 ML IVPB ONE (02:37)
[2019-10-25] MEDS ORDERED: Acetaminophen 325 MG TABLET PO ONE (02:46)
[2019-10-25 03:20] LABS: C-Reactive Protein 30 mg/L (Less than 10)
[2019-10-25] MEDS ORDERED: Naloxone 0.4 MG/ML INJ IVP PRN ×2 (03:46→07:39)
[2019-10-25] MEDS ORDERED: 0.9 % Sodium Chloride 1,000 ML IVC SCH (04:00)
[2019-10-25] MEDS ORDERED: Ondansetron 4 MG/2 ML VIAL IVP PRN (07:39)
[2019-10-25] MEDS ORDERED: *HR* Dextrose 50 % in Water (Vial) 50 ML VIAL IVP PRN (08:44)
[2019-10-25] MEDS ORDERED: D5% in Water 1,000 ML IVC PRN (08:44)
[2019-10-25] MEDS ORDERED: Dextrose Gel 15 GM/37.5 ML TUBE PO PRN ×2 (08:44)
[2019-10-25] MEDS ORDERED: NON-FORMULARY MEDICATION 1 EACH EACH (Ropinirole Hcl [Requip] 4 MG) PO SCH (09:00)
[2019-10-25] MEDS ORDERED: Ipratropium/Albuterol Neb 3 ML IH PRN (09:19)
[2019-10-25] MEDS: Loratadine 10 MG TABLET PO SCH (09:33)
[2019-10-25] MEDS: rOPINIRole 3 MG, rOPINIRole 1 MG PO SCH ×2 (09:33→16:26)
[2019-10-25] MEDS: Multivit/Ca/Min/Fe/FA 1 TAB TABLET PO SCH (09:33)
[2019-10-25] MEDS: Insulin DETEMIR 100 UNIT/ML X5UNITS SQ SCH (09:33)
[2019-10-25] MEDS: Aspirin 81 MG TAB.CHEW PO SCH (09:33)
[2019-10-25] MEDS: predniSONE 10 MG TABLET PO SCH (09:33)
[2019-10-25] MEDS: Piperacillin/Tazobactam 3.375 GM in 0.9 % Sodium Chloride Mini Bag 100 ML IVPB SCH ×2 (12:54→17:15)
[2019-10-25] MEDS: Insulin LISPRO 300 UNITS/3 ML VIAL SQ SCH ×2 (12:55→16:26)
[2019-10-25 13:15] LABS: Acinetobacter baumannii by PCR Not Detected (Not Detect); Candida albicans by PCR Not Detected (Not Detect); Candida glabrata by PCR Not Detected (Not Detect); Candida krusei by PCR Not Detected (Not Detect); Candida parapsilosis by PCR Not Detected (Not Detect); Candida tropicalis by PCR Not Detected (Not Detect); Enterobacter cloacae Cmplx PCR Not Detected (Not Detect); Enterobacteriaceae by PCR Not Detected (Not Detect); Enterococcus by PCR Not Detected (Not Detect); Escherichia coli by PCR Not Detected (Not Detect); Klebsiella oxytoca by PCR Not Detected (Not Detect); Klebsiella pneumoniae by PCR Not Detected (Not Detect); Proteus by PCR Not Detected (Not Detect); Pseudomonas aeruginosa by PCR Not Detected (Not Detect); Serratia marcescens by PCR Not Detected (Not Detect); Staphylococcus aureus by PCR Not Detected (Not Detect); Staphylococcus by PCR Not Detected (Not Detect); Streptococcus agalactiae(B)PCR DETECTED (Not Detect); Streptococcus pneumoniae PCR Not Detected (Not Detect); Streptococcus pyogenes (A) PCR Not Detected (Not Detect)
[2019-10-25] MEDS ORDERED: DAPTOmycin 500 MG in 0.9 % Sodium Chloride 100 ML IVPB SCH (14:00)
[2019-10-25] MEDS: Gabapentin 300 MG CAPSULE PO SCH (17:15)
[2019-10-25] MEDS: Metoprolol 100 MG TABLET PO SCH (19:45)
[2019-10-25] MEDS: rOPINIRole 3 MG, rOPINIRole 2 MG PO SCH (19:45)
[2019-10-25] MEDS ORDERED: NON-FORMULARY MEDICATION 1 EACH EACH (Ropinirole Hcl [Requip] 5 MG) PO SCH (21:00)
[2019-10-25] MEDS: Gabapentin 400 MG CAPSULE PO SCH (21:29)
[2019-10-26] MEDS: Piperacillin/Tazobactam 3.375 GM in 0.9 % Sodium Chloride Mini Bag 100 ML IVPB SCH ×3 (04:53→17:25)
[2019-10-26 05:23] LABS: Basophils % 0.5 %; Eosinophils # 0.1 K/mcL (0.0-0.6); Eosinophils % 1.1 %; Hematocrit 34.4 % (35.3-44.9); Immature Granulocytes % 0.5 % (0-4); Lymphocytes # 1.1 K/mcL (0.6-4.6); Lymphocytes % 15.1 %; Mean Corpuscular Hemoglobin 29.9 pg (28.0-33.3); Mean Corpuscular Volume 93.5 fL (83.0-100.0); Mean Platelet Volume 10.6 fL (9.4-12.4); Monocytes # 0.7 K/mcL (0.0-1.3); Neutrophils # 5.5 K/mcL (1.6-8.9); Platelet Count 148 K/mcL (140-400); Red Blood Count 3.68 M/mcL (3.82-4.97); Red Cell Distribution Width 17.3 % (11.5-14.5); Segmented Neutrophils % 73.8 %; White Blood Count 7.4 K/mcL (4.3-11.1)
[2019-10-26 05:42] LABS: BUN/Creatinine Ratio 25 (6-26); Blood Urea Nitrogen 24 mg/dL (6-20); Calcium 9.4 mg/dL (8.6-10.3); Carbon Dioxide 21 mEq/L (23-29); Chloride 108 mEq/L (98-107); Glucose 130 mg/dL (70-105); Magnesium 2.3 mg/dL (1.6-2.6); Osmolality,Calculated 288 (280-300); Potassium 3.8 mEq/L (3.5-5.1); Sodium 136 mEq/L (136-145); eGFR For African Americans > 60 (> 60); eGFR For Non-African Americans 60 (> 60)
[2019-10-26] MEDS: *HR* Enoxaparin 40 MG/0.4 ML SYRINGE SQ SCH (06:02)
[2019-10-26] MEDS: Multivit/Ca/Min/Fe/FA 1 TAB TABLET PO SCH (08:27)
[2019-10-26] MEDS: rOPINIRole 3 MG, rOPINIRole 1 MG PO SCH ×4 (08:27→20:06)
[2019-10-26] MEDS: Loratadine 10 MG TABLET PO SCH (08:27)
[2019-10-26] MEDS: predniSONE 10 MG TABLET PO SCH (08:27)
[2019-10-26] MEDS: allopurinoL 100 MG TABLET PO SCH (08:28)
[2019-10-26] MEDS: Colchicine 0.6 MG TABLET PO SCH (08:28)
[2019-10-26] MEDS: Aspirin 81 MG TAB.CHEW PO SCH (08:28)
[2019-10-26] MEDS: Insulin LISPRO 300 UNITS/3 ML VIAL SQ SCH ×3 (08:45→17:21)
[2019-10-26] MEDS: Insulin DETEMIR 100 UNIT/ML X5UNITS SQ SCH (08:45)
[2019-10-26] MEDS: Vancomycin 1,750 MG/517.5 ML IV.SOLN IVPB SCH ×2 (12:06→22:16)
[2019-10-26] MEDS: Gabapentin 300 MG CAPSULE PO SCH (17:13)
[2019-10-26] MEDS: Metoprolol 100 MG TABLET PO SCH (20:05)
[2019-10-26] MEDS: Gabapentin 400 MG CAPSULE PO SCH (21:50)
[2019-10-26] MEDS: rOPINIRole 3 MG, rOPINIRole 2 MG PO SCH (21:51)
[2019-10-27] MEDS: Piperacillin/Tazobactam 3.375 GM in 0.9 % Sodium Chloride Mini Bag 100 ML IVPB SCH ×2 (03:11→12:05)
[2019-10-27] MEDS: Simethicone 80 MG TAB.CHEW PO PRN ×2 (03:56→13:54)
[2019-10-27] MEDS: Colchicine 0.6 MG TABLET PO SCH (09:30)
[2019-10-27] MEDS: predniSONE 10 MG TABLET PO SCH (09:31)
[2019-10-27] MEDS: Multivit/Ca/Min/Fe/FA 1 TAB TABLET PO SCH (09:31)
[2019-10-27] MEDS: allopurinoL 100 MG TABLET PO SCH (09:31)
[2019-10-27] MEDS: *HR* Enoxaparin 40 MG/0.4 ML SYRINGE SQ SCH (09:31)
[2019-10-27] MEDS: Aspirin 81 MG TAB.CHEW PO SCH (09:31)
[2019-10-27] MEDS: Loratadine 10 MG TABLET PO SCH (09:31)
[2019-10-27] MEDS: Insulin DETEMIR 100 UNIT/ML X5UNITS SQ SCH (09:32)
[2019-10-27] MEDS: Insulin LISPRO 300 UNITS/3 ML VIAL SQ SCH ×3 (09:41→17:02)
[2019-10-27] MEDS ORDERED: Vancomycin 1,250 MG/262.5 ML IV.SOLN IVPB SCH (10:00)
[2019-10-27] MEDS: Furosemide 40 MG TABLET PO SCH (13:51)
[2019-10-27] MEDS ORDERED: Simethicone 80 MG TAB.CHEW PO PRN (15:17)
[2019-10-27] MEDS ORDERED: Perflutren Lipid Microsphere 1.3 ML in 0.9 % Sodium Chloride 8.7 ML IVP ONE (15:22)
[2019-10-27] MEDS: Gabapentin 300 MG CAPSULE PO SCH (17:01)
[2019-10-27] MEDS: rOPINIRole 3 MG, rOPINIRole 1 MG PO SCH (17:01)
[2019-10-27] MEDS ORDERED: Furosemide 40 MG TABLET PO SCH (18:00)
[2019-10-27] MEDS ORDERED: cefTRIAXone 2,000 MG in Water for inj. (sterile) 20 ML IVP SCH (18:00)
[2019-10-27] MEDS: Metoprolol 100 MG TABLET PO SCH (21:33)
[2019-10-27] MEDS: Gabapentin 400 MG CAPSULE PO SCH (21:33)
[2019-10-27] MEDS: rOPINIRole 3 MG, rOPINIRole 2 MG PO SCH (21:33)
[2019-10-28 01:03] LABS: Basophils % 0.9 %; Eosinophils # 0.1 K/mcL (0.0-0.6); Eosinophils % 1.1 %; Hematocrit 33.7 % (35.3-44.9); Hemoglobin 10.7 g/dL (11.5-15.4); Immature Granulocytes % 1.1 % (0-4); Lymphocytes % 23.2 %; Mean Corpuscular HGB Conc 31.8 g/dL (31.6-35.5); Mean Corpuscular Hemoglobin 29.2 pg (28.0-33.3); Mean Corpuscular Volume 91.8 fL (83.0-100.0); Monocytes # 0.3 K/mcL (0.0-1.3); Monocytes % 7.7 %; Neutrophils # 2.9 K/mcL (1.6-8.9); Platelet Count 170 K/mcL (140-400); Red Blood Count 3.67 M/mcL (3.82-4.97); Red Cell Distribution Width 16.8 % (11.5-14.5); White Blood Count 4.4 K/mcL (4.3-11.1)
[2019-10-28 01:19] LABS: BUN/Creatinine Ratio 22 (6-26); Blood Urea Nitrogen 22 mg/dL (6-20); Calcium 9.2 mg/dL (8.6-10.3); Carbon Dioxide 18 mEq/L (23-29); Chloride 107 mEq/L (98-107); Glucose 125 mg/dL (70-105); Osmolality,Calculated 289 (280-300); Potassium 3.1 mEq/L (3.5-5.1); Sodium 137 mEq/L (136-145); eGFR For African Americans > 60 (> 60); eGFR For Non-African Americans 56 (> 60)
[2019-10-28 04:05] VITALS: BP 155/90
[2019-10-28] MEDS: *HR* Enoxaparin 40 MG/0.4 ML SYRINGE SQ SCH (06:54)
[2019-10-28] MEDS: Colchicine 0.6 MG TABLET PO SCH (08:17)
[2019-10-28] MEDS: Aspirin 81 MG TAB.CHEW PO SCH (08:17)
[2019-10-28] MEDS: Multivit/Ca/Min/Fe/FA 1 TAB TABLET PO SCH (08:17)
[2019-10-28] MEDS: rOPINIRole 3 MG, rOPINIRole 1 MG PO SCH (08:29)
[2019-10-28] MEDS: Furosemide 40 MG TABLET PO SCH (08:30)
[2019-10-28] MEDS: predniSONE 10 MG TABLET PO SCH (08:30)
[2019-10-28] MEDS: Loratadine 10 MG TABLET PO SCH (08:30)
[2019-10-28] MEDS: allopurinoL 100 MG TABLET PO SCH (08:30)
[2019-10-28] MEDS: Insulin LISPRO 300 UNITS/3 ML VIAL SQ SCH (08:30)
[2019-10-28] MEDS: Insulin DETEMIR 100 UNIT/ML X5UNITS SQ SCH (08:30)
== END 2019-10-28 10:40 | disposition home or self-care (01) | DRG 872 ==
LOC: EMEROOARM 22:02 → 2NENU 22:02 → SUATTDRO 10-25 03:03 → 2NENU 10-25 03:35 → 2ANU 10-26 19:37
PROVIDERS: ADMIT Pharmacist; ATTEND Pharmacist

== ENCOUNTER 2020-05-27 22:20 | Inpatient (IN) ==
[2020-05-27] MEDS ORDERED: Gadolinium Contrast Agent (WT Based) IV PRN (22:36)
[2020-05-27] MEDS ORDERED: *HR* FentaNYL (PF) 100 MCG/2 ML VIAL IVP ONE (22:37)
[2020-05-27 22:45] LABS: Basophils # 0.1 K/mcL (0.0-0.2); Basophils % 0.6 %; Eosinophils # 0.1 K/mcL (0.0-0.6); Eosinophils % 0.5 %; Hemoglobin 9.7 g/dL (11.5-15.4); Immature Granulocytes % 2.2 % (0-4); Lymphocytes # 2.1 K/mcL (0.6-4.6); Mean Corpuscular HGB Conc 31.3 g/dL (31.6-35.5); Mean Corpuscular Hemoglobin 30.4 pg (28.0-33.3); Mean Corpuscular Volume 97.2 fL (83.0-100.0); Mean Platelet Volume 11.1 fL (9.4-12.4); Monocytes # 0.8 K/mcL (0.0-1.3); Monocytes % 7.1 %; Neutrophils # 7.7 K/mcL (1.6-8.9); Platelet Count 236 K/mcL (140-400); Red Blood Count 3.19 M/mcL (3.82-4.97); Red Cell Distribution Width 16.6 % (11.5-14.5); Segmented Neutrophils % 70.6 %; White Blood Count 10.9 K/mcL (4.3-11.1)
[2020-05-27 23:07] LABS: BUN/Creatinine Ratio 83 (6-26); Blood Urea Nitrogen 88 mg/dL (6-20); Carbon Dioxide 21 mEq/L (23-29); Chloride 103 mEq/L (98-107); Glucose 108 mg/dL (70-105); Osmolality,Calculated 311 (280-300); Potassium 3.9 mEq/L (3.5-5.1); Sodium 137 mEq/L (136-145); eGFR For African Americans > 60 (> 60); eGFR For Non-African Americans 53 (> 60)
[2020-05-28] MEDS ORDERED: 0.9 % Sodium Chloride 1,000 ML IVC ONE ×2 (00:40→09:16)
[2020-05-28 00:49] LABS: Bilirubin,Urine Negative (Negative); Blood,Urine Negative (Negative); Clarity,Urine Clear (Clear); Color,Urine Colorless (Yellow); Glucose,Urine (UA) Normal (Normal); Ketones,Urine Negative (Negative); Leukocyte Esterase,Urine Negative (Negative); Nitrite,Urine Negative (Negative); PH,Urine 5.5 pH Units (5.0-8.0); Protein,Urine Negative (Neg-Trace); Specific Gravity,Urine 1.017 (1.010-1.025); Urobilinogen,Urine Normal (Normal)
[2020-05-28] MEDS ORDERED: *HR* FentaNYL (PF) 100 MCG/2 ML VIAL IVP ONE ×3 (01:02→14:26)
[2020-05-28] MEDS ORDERED: Morphine Sulfate 2 MG/ML SYRINGE IVP STA (02:15)
[2020-05-28] MEDS ORDERED: Morphine Sulfate 2 MG/ML SYRINGE ONE (02:21)
[2020-05-28] MEDS ORDERED: Ondansetron 4 MG/2 ML VIAL IVP ONE (02:38)
[2020-05-28] MEDS ORDERED: Dexamethasone 4 MG/ML VIAL IVP ONE (03:59)
[2020-05-28] MEDS ORDERED: Ondansetron 4 MG/2 ML VIAL IVP PRN (05:33)
[2020-05-28] MEDS ORDERED: Acetaminophen 325 MG TABLET PO PRN (05:33)
[2020-05-28] MEDS ORDERED: Naloxone 0.4 MG/ML INJ IVP PRN (05:33)
[2020-05-28] MEDS ORDERED: Morphine Sulfate 2 MG/ML SYRINGE IVP PRN (07:24)
[2020-05-28] MEDS ORDERED: *HR* Dextrose 50 % in Water (Vial) 50 ML VIAL IVP PRN (07:30)
[2020-05-28] MEDS ORDERED: Dextrose Gel 15 GM/37.5 ML TUBE PO PRN ×2 (07:30)
[2020-05-28] MEDS ORDERED: D5% in Water 1,000 ML IVC PRN (07:30)
[2020-05-28] MEDS ORDERED: 0.9 % Sodium Chloride 250 ML ONE (08:16)
[2020-05-28] MEDS ORDERED: 0.9 % Sodium Chloride 250 ML IVC ONE (08:17)
[2020-05-28] MEDS ORDERED: *HR* LORazepam 2 MG/ML VIAL IVP ONE (08:26)
[2020-05-28] MEDS ORDERED: HydrOXYzine 100 MG/2 ML VIAL IM ONE (08:27)
[2020-05-28] MEDS ORDERED: *HR* LORazepam 2 MG/ML VIAL ONE (08:28)
[2020-05-28] MEDS ORDERED: 0.9 % Sodium Chloride 500 ML IVC ONE (08:36)
[2020-05-28] MEDS ORDERED: 0.9 % Sodium Chloride 500 ML ONE ×2 (08:37→13:17)
[2020-05-28 09:09] LABS: Hematocrit 21.5 % (35.3-44.9); Mean Corpuscular HGB Conc 30.2 g/dL (31.6-35.5); Mean Corpuscular Volume 99.1 fL (83.0-100.0); Nucleated Red Blood Cells 0.3 /100 WBC (0); Platelet Count 269 K/mcL (140-400); Red Blood Count 2.17 M/mcL (3.82-4.97); Red Cell Distribution Width 16.7 % (11.5-14.5); White Blood Count 15.3 K/mcL (4.3-11.1)
[2020-05-28] MEDS ORDERED: 0.9 % Sodium Chloride 1,000 ML ONE ×2 (09:11→13:57)
[2020-05-28] MEDS ORDERED: Isovue-370 500 ML BOTTLE IVP ONE ×2 (09:14→09:17)
[2020-05-28 09:20] LABS: Hemoglobin 6.5 g/dL (11.5-15.4)
[2020-05-28 09:33] LABS: Alanine Aminotransferase 27 Units/L (7-52); Albumin 3.1 g/dL (3.5-5.7); Albumin/Globulin Ratio 1.7 (1.1-2.2); Alkaline Phosphatase 64 Units/L (34-104); Aspartate Amino Transferase 24 Units/L (13-39); Bilirubin,Total 0.3 mg/dL (0.3-1.0); Blood Urea Nitrogen > 130 mg/dL (6-20); Calcium 8.1 mg/dL (8.6-10.3); Carbon Dioxide 16 mEq/L (23-29); Chloride 109 mEq/L (98-107); Globulin 1.8 g/dL (2.4-3.5); Glucose 279 mg/dL (70-105); Potassium 3.9 mEq/L (3.5-5.1); Sodium 139 mEq/L (136-145); Total Protein 4.9 g/dL (6.4-8.9); eGFR For African Americans 39 (> 60); eGFR For Non-African Americans 32 (> 60)
[2020-05-28] MEDS ORDERED: Lidocaine -MPF 2% 5 ML VIAL ONE (09:51)
[2020-05-28] MEDS ORDERED: Pantoprazole 40 MG VIAL ONE (09:56)
[2020-05-28 09:59] LABS: INR 1.3; Prothrombin Time 15.1 Seconds (9.4-12.1)
[2020-05-28] MEDS ORDERED: Pantoprazole 40 MG VIAL IVP SCH (10:00)
[2020-05-28] MEDS ORDERED: Pantoprazole 40 MG VIAL IVP ONE (10:15)
[2020-05-28] MEDS: Pantoprazole 40 MG in 0.9 % Sodium Chloride Mini Bag 100 ML IVC SCH ×3 (10:24→20:42)
[2020-05-28 10:35] LABS: Lymphocytes # 1.5 K/mcL (0.6-4.6); Monocytes # 0.6 K/mcL (0.0-1.3); Neutrophils # 12.9 K/mcL (1.6-8.9)
[2020-05-28 10:40] LABS: Platelet Estimate Normal (Normal)
[2020-05-28 10:52] LABS: ABG Base Excess -11 mEq/L (-2 to 3); ABG HCO3 15 mEq/L (21-27); ABG Oxygen Saturation 95 % (95-98); ABG PCO2 29 mmHg (35-45); ABG PH 7.31 pH Units (7.32-7.45); ABG PO2 79 mmHg (85-104); ABG TCO2 16 mEq/L (20-26)
[2020-05-28 11:19] LABS: Bilirubin,Urine Negative (Negative); Blood,Urine Negative (Negative); Clarity,Urine Clear (Clear); Color,Urine Light-Yellow (Yellow); Glucose,Urine (UA) Normal (Normal); Ketones,Urine Negative (Negative); Leukocyte Esterase,Urine Negative (Negative); Nitrite,Urine Negative (Negative); PH,Urine 5.5 pH Units (5.0-8.0); Protein,Urine Trace mg/dL (Neg-Trace); Specific Gravity,Urine 1.025 (1.010-1.025); Urobilinogen,Urine Normal (Normal)
[2020-05-28] MEDS ORDERED: Metoclopramide 10 MG/2 ML VIAL IVP ONE (12:15)
[2020-05-28] MEDS ORDERED: *HR* PHENYLEPHRINE 1,000 MCG/10 ML SYRINGE IVP ONE (12:55)
[2020-05-28] MEDS ORDERED: *HR* Midazolam HCl 2 MG/2 ML VIAL ONE (13:24)
[2020-05-28] MEDS ORDERED: *HR* FentaNYL (PF) 100 MCG/2 ML VIAL ONE ×2 (13:59→14:21)
[2020-05-28] MEDS ORDERED: *HR* Midazolam HCl 5 MG/5 ML VIAL IVP ONE ×2 (14:21→14:27)
[2020-05-28] MEDS ORDERED: Artificial Tears SOLN 15 ML BOTTLE BOTH EYES PRN (14:31)
[2020-05-28] MEDS: FentaNYL (PF) 1,000 MCG/100 ML IV.SOLN IVC SCH ×2 (14:57→20:49)
[2020-05-28] MEDS: Dexmedetomidine HCl 400 MCG/100 ML MLS IVC SCH ×3 (14:58→21:33)
[2020-05-28] MEDS ORDERED: 0.9 % Sodium Chloride 10 ML PF VIAL IVP ONE (15:00)
[2020-05-28] MEDS ORDERED: *HR* Succinylcholine 200 MG/10 ML VIAL IVP ONE (15:00)
[2020-05-28] MEDS ORDERED: *HR* Metoprolol 5 MG/5 ML VIAL IVP ONE (15:00)
[2020-05-28] MEDS ORDERED: Lidocaine -MPF 2% 5 ML VIAL SQ ONE (15:00)
[2020-05-28] MEDS ORDERED: *HR* Rocuronium Bromide 50 MG/5 ML VIAL IVP ONE (15:00)
[2020-05-28] MEDS ORDERED: *HR* Propofol 200 MG/20 ML VIAL IVP ONE (15:00)
[2020-05-28] MEDS: Insulin LISPRO 300 UNITS/3 ML VIAL SUBQ SCH ×2 (15:21→19:45)
[2020-05-28 15:40] LABS: Hematocrit 26.8 % (35.3-44.9); Mean Corpuscular HGB Conc 32.5 g/dL (31.6-35.5); Mean Corpuscular Hemoglobin 30.9 pg (28.0-33.3); Mean Platelet Volume 11.4 fL (9.4-12.4); Platelet Count 212 K/mcL (140-400); Red Blood Count 2.82 M/mcL (3.82-4.97); Red Cell Distribution Width 15.9 % (11.5-14.5); White Blood Count 17.1 K/mcL (4.3-11.1)
[2020-05-28 15:49] LABS: Hemoglobin 8.7 g/dL (11.5-15.4)
[2020-05-28] MEDS ORDERED: *HR* EPINEPHrine 30 MG/30 ML MDV SQ ONE (15:57)
[2020-05-28] MEDS ORDERED: *HR* EPINEPHrine 1 MG/10 ML SYRINGE ONE (16:05)
[2020-05-28] MEDS ORDERED: EPINEPHrine 1 MG/ML VIAL SQ ONE (16:30)
[2020-05-28 17:30] LABS: ABG Base Excess -10 mEq/L (-2 to 3); ABG HCO3 16 mEq/L (21-27); ABG Oxygen Saturation 100 % (95-98); ABG PCO2 32 mmHg (35-45); ABG PO2 191 mmHg (85-104); ABG TCO2 17 mEq/L (20-26); Blood Gas VT 480 cc
[2020-05-28] MEDS: Norepinephrine 4 MG/254 ML IV.SOLN IVC SCH (18:06)
[2020-05-28 18:44] LABS: Basophils # 0.1 K/mcL (0.0-0.2); Basophils % 0.4 %; Hematocrit 22.4 % (35.3-44.9); Hemoglobin 7.4 g/dL (11.5-15.4); Immature Granulocytes % 4.4 % (0-4); Mean Corpuscular Hemoglobin 30.8 pg (28.0-33.3); Mean Corpuscular Volume 93.3 fL (83.0-100.0); Mean Platelet Volume 11.2 fL (9.4-12.4); Monocytes # 0.5 K/mcL (0.0-1.3); Monocytes % 3.4 %; Neutrophils # 11.5 K/mcL (1.6-8.9); Nucleated Red Blood Cells 0.8 /100 WBC (0); Platelet Count 160 K/mcL (140-400); Red Cell Distribution Width 16.2 % (11.5-14.5); Segmented Neutrophils % 84.8 %; White Blood Count 13.5 K/mcL (4.3-11.1)
[2020-05-28] MEDS ORDERED: Perflutren Lipid Microsphere 1.3 ML in 0.9 % Sodium Chloride 8.7 ML IVP PRN (19:33)
[2020-05-28] MEDS: Artificial Tears SOLN 15 ML BOTTLE BOTH EYES SCH ×2 (21:23→22:40)
[2020-05-28] MEDS: Chlorhexidine Rinse 15 ML MOUTHWASH MM SCH (21:30)
[2020-05-29] MEDS: Artificial Tears SOLN 15 ML BOTTLE BOTH EYES SCH ×7 (00:25→22:56)
[2020-05-29 00:46] LABS: Hemoglobin 8.4 g/dL (11.5-15.4)
[2020-05-29] MEDS: Insulin LISPRO 300 UNITS/3 ML VIAL SUBQ SCH ×5 (00:52→22:56)
[2020-05-29] MEDS: Pantoprazole 40 MG in 0.9 % Sodium Chloride Mini Bag 100 ML IVC SCH ×5 (01:26→20:45)
[2020-05-29] MEDS: Dexmedetomidine HCl 400 MCG/100 ML MLS IVC SCH ×3 (01:27→14:52)
[2020-05-29] MEDS: FentaNYL (PF) 1,000 MCG/100 ML IV.SOLN IVC SCH (02:03)
[2020-05-29] MEDS ORDERED: *HR* Midazolam HCl 5 MG/5 ML VIAL IVP ONE ×2 (02:12→02:27)
[2020-05-29] MEDS ORDERED: *HR* Midazolam HCl 2 MG/2 ML VIAL IVP PRN (02:32)
[2020-05-29 04:29] LABS: ABG Base Excess -7 mEq/L (-2 to 3); ABG HCO3 18 mEq/L (21-27); ABG Oxygen Saturation 98 % (95-98); ABG PCO2 32 mmHg (35-45); ABG PH 7.35 pH Units (7.32-7.45); ABG PO2 108 mmHg (85-104); ABG TCO2 19 mEq/L (20-26); Blood Gas Modality ASSIST CONTROL; Blood Gas VT 480 cc
[2020-05-29] MEDS: FentaNYL (PF) 2,500 MCG/50 ML IV.SOLN IVC SCH ×2 (06:14→10:28)
[2020-05-29] MEDS: Norepinephrine 4 MG/254 ML IV.SOLN IVC SCH (06:15)
[2020-05-29] MEDS ORDERED: Acetaminophen 650 MG RECTAL SUPP RC PRN (06:42)
[2020-05-29 07:04] LABS: Basophils % 0.2 %; Hematocrit 24.7 % (35.3-44.9); Hemoglobin 8.3 g/dL (11.5-15.4); Immature Granulocytes % 1.6 % (0-4); Lymphocytes # 0.8 K/mcL (0.6-4.6); Lymphocytes % 4.7 %; Mean Corpuscular HGB Conc 33.6 g/dL (31.6-35.5); Mean Corpuscular Hemoglobin 31.2 pg (28.0-33.3); Mean Corpuscular Volume 92.9 fL (83.0-100.0); Mean Platelet Volume 11.5 fL (9.4-12.4); Monocytes # 0.9 K/mcL (0.0-1.3); Monocytes % 5.5 %; Neutrophils # 15.2 K/mcL (1.6-8.9); Nucleated Red Blood Cells 0.6 /100 WBC (0); Platelet Count 185 K/mcL (140-400); Red Blood Count 2.66 M/mcL (3.82-4.97); Red Cell Distribution Width 17.3 % (11.5-14.5); White Blood Count 17.2 K/mcL (4.3-11.1)
[2020-05-29] MEDS: Chlorhexidine Rinse 15 ML MOUTHWASH MM SCH ×2 (07:57→20:41)
[2020-05-29 08:49] LABS: Blood Urea Nitrogen > 130 mg/dL (6-20); Calcium 8.6 mg/dL (8.6-10.3); Carbon Dioxide 16 mEq/L (23-29); Chloride 119 mEq/L (98-107); Glucose 172 mg/dL (70-105); Potassium 4.1 mEq/L (3.5-5.1); Sodium 147 mEq/L (136-145); eGFR For African Americans 38 (> 60); eGFR For Non-African Americans 31 (> 60)
[2020-05-29] MEDS: Piperacillin/Tazobactam 3.375 GM in 0.9 % Sodium Chloride Mini Bag 100 ML IVPB SCH ×3 (10:31→23:04)
[2020-05-29 16:24] LABS: Hematocrit 22.5 % (35.3-44.9); Hemoglobin 7.2 g/dL (11.5-15.4)
[2020-05-30] MEDS: Dexmedetomidine HCl 400 MCG/100 ML MLS IVC SCH ×3 (00:03→12:04)
[2020-05-30 03:31] LABS: Basophils % 0.1 %; Hematocrit 23.8 % (35.3-44.9); Hemoglobin 7.5 g/dL (11.5-15.4); Immature Granulocytes % 1.4 % (0-4); Lymphocytes # 0.7 K/mcL (0.6-4.6); Lymphocytes % 8.1 %; Mean Corpuscular HGB Conc 31.5 g/dL (31.6-35.5); Mean Corpuscular Hemoglobin 29.9 pg (28.0-33.3); Mean Corpuscular Volume 94.8 fL (83.0-100.0); Mean Platelet Volume 11.2 fL (9.4-12.4); Monocytes # 0.6 K/mcL (0.0-1.3); Monocytes % 6.9 %; Neutrophils # 7.7 K/mcL (1.6-8.9); Nucleated Red Blood Cells 0.8 /100 WBC (0); Platelet Count 120 K/mcL (140-400); Red Blood Count 2.51 M/mcL (3.82-4.97); Red Cell Distribution Width 17.5 % (11.5-14.5); Segmented Neutrophils % 83.5 %; White Blood Count 9.2 K/mcL (4.3-11.1)
[2020-05-30 03:48] LABS: Albumin/Globulin Ratio 1.6 (1.1-2.2); Bilirubin,Total 0.3 mg/dL (0.3-1.0); Calcium 8.8 mg/dL (8.6-10.3); Globulin 1.9 g/dL (2.4-3.5); Total Protein 4.9 g/dL (6.4-8.9)
[2020-05-30 04:30] LABS: ABG Base Excess -4 mEq/L (-2 to 3); ABG HCO3 22 mEq/L (21-27); ABG Oxygen Saturation 97 % (95-98); ABG PCO2 44 mmHg (35-45); ABG PO2 97 mmHg (85-104); ABG TCO2 23 mEq/L (20-26); Blood Gas Modality ASSIST CONTROL; Blood Gas VT 480 cc
[2020-05-30] MEDS: Pantoprazole 40 MG in 0.9 % Sodium Chloride Mini Bag 100 ML IVC SCH ×4 (04:36→17:39)
[2020-05-30] MEDS: Insulin LISPRO 300 UNITS/3 ML VIAL SUBQ SCH ×3 (05:44→17:52)
[2020-05-30] MEDS: FentaNYL (PF) 2,500 MCG/50 ML IV.SOLN IVC SCH (07:30)
[2020-05-30] MEDS: Artificial Tears SOLN 15 ML BOTTLE BOTH EYES SCH ×4 (08:07→20:44)
[2020-05-30] MEDS: Norepinephrine 4 MG/254 ML IV.SOLN IVC SCH (08:10)
[2020-05-30] MEDS: Chlorhexidine Rinse 15 ML MOUTHWASH MM SCH ×2 (08:11→20:44)
[2020-05-30] MEDS: Piperacillin/Tazobactam 3.375 GM in 0.9 % Sodium Chloride Mini Bag 100 ML IVPB SCH ×2 (08:11→17:10)
[2020-05-30 08:48] LABS: Troponin I 0.57 ng/mL (< 0.04)
[2020-05-30] MEDS ORDERED: Furosemide 40 MG/4 ML VIAL IVP ONE (09:33)
[2020-05-30] MEDS ORDERED: *HR* Metoprolol 5 MG/5 ML VIAL IVP PRN (12:19)
[2020-05-30] MEDS ORDERED: Acetaminophen IV 1,000 MG/100 ML BAG IVPB ONE (14:39)
[2020-05-30] MEDS: Gabapentin 300 MG CAPSULE PO SCH (17:47)
[2020-05-30] MEDS: rOPINIRole 1 MG TABLET PO SCH (17:47)
[2020-05-31] MEDS: Piperacillin/Tazobactam 3.375 GM in 0.9 % Sodium Chloride Mini Bag 100 ML IVPB SCH ×2 (00:27→07:09)
[2020-05-31] MEDS: Pantoprazole 40 MG in 0.9 % Sodium Chloride Mini Bag 100 ML IVC SCH ×3 (00:30→07:56)
[2020-05-31] MEDS: Insulin LISPRO 300 UNITS/3 ML VIAL SUBQ SCH ×5 (00:36→20:05)
[2020-05-31] MEDS: Artificial Tears SOLN 15 ML BOTTLE BOTH EYES SCH ×7 (00:36→23:45)
[2020-05-31] MEDS ORDERED: *HR* Metoprolol 5 MG/5 ML VIAL IVP ONE (00:43)
[2020-05-31] MEDS ORDERED: Acetaminophen IV 1,000 MG/100 ML BAG IVPB ONE (05:22)
[2020-05-31 05:58] LABS: Basophils % 0.3 %; Eosinophils % 0.3 %; Hemoglobin 7.8 g/dL (11.5-15.4); Immature Granulocytes % 2.2 % (0-4); Lymphocytes % 10.1 %; Mean Corpuscular HGB Conc 31.2 g/dL (31.6-35.5); Mean Corpuscular Hemoglobin 30.4 pg (28.0-33.3); Mean Corpuscular Volume 97.3 fL (83.0-100.0); Mean Platelet Volume 10.6 fL (9.4-12.4); Monocytes # 0.7 K/mcL (0.0-1.3); Monocytes % 7.1 %; Neutrophils # 7.5 K/mcL (1.6-8.9); Nucleated Red Blood Cells 1.2 /100 WBC (0); Platelet Count 147 K/mcL (140-400); Red Blood Count 2.57 M/mcL (3.82-4.97); Red Cell Distribution Width 18.2 % (11.5-14.5); White Blood Count 9.4 K/mcL (4.3-11.1)
[2020-05-31 06:23] LABS: Calcium 9.3 mg/dL (8.6-10.3); Potassium 3.1 mEq/L (3.5-5.1)
[2020-05-31] MEDS: Chlorhexidine Rinse 15 ML MOUTHWASH MM SCH ×2 (07:09→19:07)
[2020-05-31] MEDS: Folic Acid 1 MG TABLET PO SCH (07:10)
[2020-05-31] MEDS: rOPINIRole 1 MG TABLET PO SCH ×2 (07:56→16:38)
[2020-05-31] MEDS ORDERED: Furosemide 40 MG TABLET PO SCH (09:00)
[2020-05-31] MEDS ORDERED: D5% in Water 1,000 ML IVC SCH (09:15)
[2020-05-31] MEDS: *HR* Metoprolol 5 MG/5 ML VIAL IVP SCH ×4 (09:31→23:53)
[2020-05-31] MEDS ORDERED: Potassium Chloride Elixir 20 MEQ/15 ML UDC PO ONE (09:56)
[2020-05-31 11:58] LABS: VBG Ionized Calcium 1.33 mmol/L (1.15-1.35)
[2020-05-31 12:16] LABS: BUN/Creatinine Ratio 53 (6-26); Blood Urea Nitrogen 57 mg/dL (6-20); Calcium 9.4 mg/dL (8.6-10.3); Carbon Dioxide 23 mEq/L (23-29); Chloride 133 mEq/L (98-107); Glucose 168 mg/dL (70-105); Magnesium 2.7 mg/dL (1.6-2.6); Osmolality,Calculated 354 (280-300); Phosphorous 2.4 mg/dL (2.7-4.5); Potassium 3.7 mEq/L (3.5-5.1); Sodium 162 mEq/L (136-145); eGFR For African Americans > 60 (> 60); eGFR For Non-African Americans 53 (> 60)
[2020-05-31] MEDS: Norepinephrine 4 MG/254 ML IV.SOLN IVC SCH (14:53)
[2020-05-31] MEDS: Piperacillin/Tazobactam 3.375 GM in D5% in Water (Mini-Bag+) 100 ML IVPB SCH ×2 (15:32→23:53)
[2020-05-31 16:08] LABS: BUN/Creatinine Ratio 51 (6-26); Blood Urea Nitrogen 48 mg/dL (6-20); Calcium 9.6 mg/dL (8.6-10.3); Carbon Dioxide 22 mEq/L (23-29); Chloride 132 mEq/L (98-107); Glucose 155 mg/dL (70-105); Osmolality,Calculated 348 (280-300); Potassium 3.4 mEq/L (3.5-5.1); Sodium 161 mEq/L (136-145); eGFR For African Americans > 60 (> 60); eGFR For Non-African Americans > 60 (> 60)
[2020-05-31] MEDS: Gabapentin 300 MG CAPSULE PO SCH (16:38)
[2020-05-31] MEDS: predniSONE 5 MG TABLET PO SCH (16:38)
[2020-05-31] MEDS: Pantoprazole 40 MG VIAL IVP SCH (16:40)
[2020-05-31] MEDS: D5% in Water 1,000 ML IVC SCH ×2 (17:09→18:22)
[2020-05-31 21:43] LABS: Hematocrit 23.5 % (35.3-44.9); Hemoglobin 7.3 g/dL (11.5-15.4)
[2020-05-31 22:05] LABS: BUN/Creatinine Ratio 47 (6-26); Blood Urea Nitrogen 36 mg/dL (6-20); Calcium 8.9 mg/dL (8.6-10.3); Carbon Dioxide 23 mEq/L (23-29); Chloride 127 mEq/L (98-107); Glucose 143 mg/dL (70-105); Osmolality,Calculated 333 (280-300); Potassium 3.3 mEq/L (3.5-5.1); Sodium 156 mEq/L (136-145); eGFR For African Americans > 60 (> 60); eGFR For Non-African Americans > 60 (> 60)
[2020-06-01] MEDS: Insulin LISPRO 300 UNITS/3 ML VIAL SUBQ SCH ×5 (00:08→21:28)
[2020-06-01] MEDS: D5% in Water 1,000 ML IVC SCH (01:38)
[2020-06-01 03:35] LABS: Basophils % 0.3 %; Eosinophils # 0.1 K/mcL (0.0-0.6); Eosinophils % 1.3 %; Hematocrit 21.4 % (35.3-44.9); Hemoglobin 6.6 g/dL (11.5-15.4); Immature Granulocytes % 1.6 % (0-4); Lymphocytes # 0.8 K/mcL (0.6-4.6); Lymphocytes % 12.9 %; Mean Corpuscular HGB Conc 30.8 g/dL (31.6-35.5); Mean Corpuscular Hemoglobin 30.4 pg (28.0-33.3); Mean Corpuscular Volume 98.6 fL (83.0-100.0); Mean Platelet Volume 10.7 fL (9.4-12.4); Monocytes # 0.5 K/mcL (0.0-1.3); Monocytes % 7.8 %; Neutrophils # 4.8 K/mcL (1.6-8.9); Nucleated Red Blood Cells 1.6 /100 WBC (0); Platelet Count 135 K/mcL (140-400); Red Blood Count 2.17 M/mcL (3.82-4.97); Segmented Neutrophils % 76.1 %; White Blood Count 6.3 K/mcL (4.3-11.1)
[2020-06-01 03:41] LABS: VBG Ionized Calcium 1.33 mmol/L (1.15-1.35)
[2020-06-01] MEDS ORDERED: 0.9 % Sodium Chloride 500 ML ONE (03:50)
[2020-06-01 04:12] LABS: Alanine Aminotransferase 569 Units/L (7-52); Albumin/Globulin Ratio 1.4 (1.1-2.2); Alkaline Phosphatase 52 Units/L (34-104); Aspartate Amino Transferase 141 Units/L (13-39); BUN/Creatinine Ratio 40 (6-26); Bilirubin,Total 0.4 mg/dL (0.3-1.0); Blood Urea Nitrogen 30 mg/dL (6-20); Calcium 8.8 mg/dL (8.6-10.3); Carbon Dioxide 23 mEq/L (23-29); Chloride 125 mEq/L (98-107); Globulin 2.1 g/dL (2.4-3.5); Glucose 151 mg/dL (70-105); Magnesium 2.1 mg/dL (1.6-2.6); Osmolality,Calculated 325 (280-300); Phosphorous 1.8 mg/dL (2.7-4.5); Potassium 3.3 mEq/L (3.5-5.1); Sodium 153 mEq/L (136-145); Total Protein 5.1 g/dL (6.4-8.9); eGFR For African Americans > 60 (> 60); eGFR For Non-African Americans > 60 (> 60)
[2020-06-01] MEDS: Artificial Tears SOLN 15 ML BOTTLE BOTH EYES SCH ×3 (04:18→12:46)
[2020-06-01] MEDS ORDERED: 0.9 % Sodium Chloride 250 ML IVC SCH (04:45)
[2020-06-01] MEDS: Pantoprazole 40 MG VIAL IVP SCH ×2 (05:11→18:03)
[2020-06-01] MEDS: *HR* Metoprolol 5 MG/5 ML VIAL IVP SCH ×2 (05:11→12:48)
[2020-06-01] MEDS: Piperacillin/Tazobactam 3.375 GM in D5% in Water (Mini-Bag+) 100 ML IVPB SCH ×2 (08:40→18:01)
[2020-06-01] MEDS: rOPINIRole 1 MG TABLET PO SCH ×2 (08:41→18:03)
[2020-06-01] MEDS: Chlorhexidine Rinse 15 ML MOUTHWASH MM SCH (08:41)
[2020-06-01] MEDS: predniSONE 5 MG TABLET PO SCH (08:41)
[2020-06-01] MEDS: Folic Acid 1 MG TABLET PO SCH (08:41)
[2020-06-01 10:08] LABS: Hematocrit 27.1 % (35.3-44.9); Mean Corpuscular Hemoglobin 30.3 pg (28.0-33.3); Mean Corpuscular Volume 97.8 fL (83.0-100.0); Mean Platelet Volume 10.6 fL (9.4-12.4); Platelet Count 158 K/mcL (140-400); Red Blood Count 2.77 M/mcL (3.82-4.97); Red Cell Distribution Width 18.7 % (11.5-14.5); White Blood Count 9.1 K/mcL (4.3-11.1)
[2020-06-01 10:09] LABS: Hemoglobin 8.4 g/dL (11.5-15.4)
[2020-06-01 10:27] LABS: BUN/Creatinine Ratio 33 (6-26); Blood Urea Nitrogen 25 mg/dL (6-20); Calcium 9.1 mg/dL (8.6-10.3); Carbon Dioxide 21 mEq/L (23-29); Chloride 121 mEq/L (98-107); Glucose 151 mg/dL (70-105); Osmolality,Calculated 315 (280-300); Potassium 3.5 mEq/L (3.5-5.1); Sodium 149 mEq/L (136-145); eGFR For African Americans > 60 (> 60); eGFR For Non-African Americans > 60 (> 60)
[2020-06-01] MEDS ORDERED: D5% in Water 1,000 ML IVC PRN (12:54)
[2020-06-01] MEDS ORDERED: Acetaminophen 325 MG TABLET PO PRN (12:54)
[2020-06-01] MEDS ORDERED: Ondansetron 4 MG/2 ML VIAL IVP PRN (12:54)
[2020-06-01] MEDS ORDERED: *HR* Metoprolol 5 MG/5 ML VIAL IVP PRN (12:54)
[2020-06-01] MEDS ORDERED: Furosemide 20 MG/2 ML VIAL IVP ONE (12:54)
[2020-06-01] MEDS ORDERED: Dextrose Gel 15 GM/37.5 ML TUBE PO PRN ×2 (12:54)
[2020-06-01] MEDS ORDERED: *HR* Dextrose 50 % in Water (Vial) 50 ML VIAL IVP PRN (12:54)
[2020-06-01] MEDS ORDERED: Naloxone 0.4 MG/ML INJ IVP PRN (12:54)
[2020-06-01 16:21] LABS: Hematocrit 24.2 % (35.3-44.9); Hemoglobin 7.5 g/dL (11.5-15.4)
[2020-06-01] MEDS ORDERED: Insulin LISPRO 300 UNITS/3 ML VIAL SUBQ SCH (16:30)
[2020-06-01 16:40] LABS: BUN/Creatinine Ratio 28 (6-26); Blood Urea Nitrogen 21 mg/dL (6-20); Calcium 8.6 mg/dL (8.6-10.3); Carbon Dioxide 23 mEq/L (23-29); Chloride 119 mEq/L (98-107); Glucose 133 mg/dL (70-105); Magnesium 1.8 mg/dL (1.6-2.6); Osmolality,Calculated 309 (280-300); Phosphorous 2.1 mg/dL (2.7-4.5); Potassium 3.5 mEq/L (3.5-5.1); Sodium 147 mEq/L (136-145); eGFR For African Americans > 60 (> 60); eGFR For Non-African Americans > 60 (> 60)
[2020-06-01] MEDS: Gabapentin 300 MG CAPSULE PO SCH (18:02)
[2020-06-01 21:33] LABS: Hematocrit 22.2 % (35.3-44.9); Hemoglobin 7.1 g/dL (11.5-15.4)
[2020-06-02] MEDS: Piperacillin/Tazobactam 3.375 GM in 0.9 % Sodium Chloride Mini Bag 100 ML IVPB SCH ×3 (00:43→16:39)
[2020-06-02] MEDS: Piperacillin/Tazobactam 3.375 GM in D5% in Water (Mini-Bag+) 100 ML IVPB SCH (01:06)
[2020-06-02 03:55] LABS: Basophils % 0.3 %; Eosinophils # 0.1 K/mcL (0.0-0.6); Hematocrit 22.8 % (35.3-44.9); Immature Granulocytes % 2.6 % (0-4); Lymphocytes % 16.9 %; Mean Corpuscular HGB Conc 30.7 g/dL (31.6-35.5); Mean Corpuscular Hemoglobin 30.4 pg (28.0-33.3); Mean Corpuscular Volume 99.1 fL (83.0-100.0); Mean Platelet Volume 10.7 fL (9.4-12.4); Monocytes # 0.4 K/mcL (0.0-1.3); Monocytes % 7.2 %; Neutrophils # 4.2 K/mcL (1.6-8.9); Nucleated Red Blood Cells 1.2 /100 WBC (0); Platelet Count 119 K/mcL (140-400); Red Cell Distribution Width 18.4 % (11.5-14.5); White Blood Count 5.8 K/mcL (4.3-11.1)
[2020-06-02 04:01] LABS: VBG Ionized Calcium 1.19 mmol/L (1.15-1.35)
[2020-06-02 04:14] LABS: Alanine Aminotransferase 358 Units/L (7-52); Albumin 2.9 g/dL (3.5-5.7); Albumin/Globulin Ratio 1.5 (1.1-2.2); Alkaline Phosphatase 58 Units/L (34-104); Aspartate Amino Transferase 51 Units/L (13-39); BUN/Creatinine Ratio 25 (6-26); Bilirubin,Total 0.3 mg/dL (0.3-1.0); Blood Urea Nitrogen 17 mg/dL (6-20); Calcium 8.2 mg/dL (8.6-10.3); Carbon Dioxide 22 mEq/L (23-29); Chloride 118 mEq/L (98-107); Glucose 121 mg/dL (70-105); Magnesium 1.8 mg/dL (1.6-2.6); Osmolality,Calculated 305 (280-300); Phosphorous 2.3 mg/dL (2.7-4.5); Potassium 3.3 mEq/L (3.5-5.1); Sodium 146 mEq/L (136-145); Total Protein 4.9 g/dL (6.4-8.9); eGFR For African Americans > 60 (> 60); eGFR For Non-African Americans > 60 (> 60)
[2020-06-02] MEDS: Pantoprazole 40 MG VIAL IVP SCH ×2 (05:47→16:39)
[2020-06-02] MEDS: predniSONE 5 MG TABLET PO SCH (08:16)
[2020-06-02] MEDS: Folic Acid 1 MG TABLET PO SCH (08:17)
[2020-06-02] MEDS: rOPINIRole 1 MG TABLET PO SCH ×2 (08:21→16:40)
[2020-06-02] MEDS: Insulin LISPRO 300 UNITS/3 ML VIAL SUBQ SCH ×4 (08:30→20:11)
[2020-06-02 09:55] LABS: Hematocrit 24.7 % (35.3-44.9); Hemoglobin 7.8 g/dL (11.5-15.4)
[2020-06-02] MEDS: Gabapentin 300 MG CAPSULE PO SCH (16:39)
[2020-06-02 17:25] LABS: Hematocrit 22.6 % (35.3-44.9); Hemoglobin 7.3 g/dL (11.5-15.4)
[2020-06-02] MEDS: *HR* HYDROcodone/Acet 10/325 mg TABLET PO PRN (20:12)
[2020-06-02 21:18] LABS: Hematocrit 23.2 % (35.3-44.9); Hemoglobin 7.4 g/dL (11.5-15.4)
[2020-06-03] MEDS: Piperacillin/Tazobactam 3.375 GM in 0.9 % Sodium Chloride Mini Bag 100 ML IVPB SCH ×3 (00:15→15:45)
[2020-06-03] MEDS: GuaiFENesin Liq 200 MG/10 ML UDC PO SCH ×4 (00:15→16:27)
[2020-06-03 00:41] LABS: Basophils % 0.6 %; Eosinophils # 0.1 K/mcL (0.0-0.6); Eosinophils % 1.2 %; Hematocrit 24.4 % (35.3-44.9); Hemoglobin 7.5 g/dL (11.5-15.4); Immature Granulocytes % 5.3 % (0-4); Mean Corpuscular HGB Conc 30.7 g/dL (31.6-35.5); Mean Corpuscular Hemoglobin 30.4 pg (28.0-33.3); Mean Corpuscular Volume 98.8 fL (83.0-100.0); Mean Platelet Volume 11.2 fL (9.4-12.4); Monocytes # 0.5 K/mcL (0.0-1.3); Monocytes % 7.3 %; Neutrophils # 4.8 K/mcL (1.6-8.9); Platelet Count 166 K/mcL (140-400); Red Blood Count 2.47 M/mcL (3.82-4.97); Red Cell Distribution Width 18.1 % (11.5-14.5); Segmented Neutrophils % 70.6 %; White Blood Count 6.8 K/mcL (4.3-11.1)
[2020-06-03 00:41] LABS: VBG Ionized Calcium 1.31 mmol/L (1.15-1.35)
[2020-06-03 00:59] LABS: Alanine Aminotransferase 288 Units/L (7-52); Albumin 3.1 g/dL (3.5-5.7); Albumin/Globulin Ratio 1.3 (1.1-2.2); Alkaline Phosphatase 82 Units/L (34-104); Aspartate Amino Transferase 36 Units/L (13-39); BUN/Creatinine Ratio 27 (6-26); Bilirubin,Total 0.3 mg/dL (0.3-1.0); Blood Urea Nitrogen 19 mg/dL (6-20); Calcium 8.4 mg/dL (8.6-10.3); Carbon Dioxide 21 mEq/L (23-29); Chloride 118 mEq/L (98-107); Globulin 2.3 g/dL (2.4-3.5); Glucose 161 mg/dL (70-105); Magnesium 1.9 mg/dL (1.6-2.6); Osmolality,Calculated 308 (280-300); Phosphorous 1.9 mg/dL (2.7-4.5); Potassium 3.6 mEq/L (3.5-5.1); Sodium 146 mEq/L (136-145); Total Protein 5.4 g/dL (6.4-8.9); eGFR For African Americans > 60 (> 60); eGFR For Non-African Americans > 60 (> 60)
[2020-06-03 01:53] LABS: Platelet Estimate Normal (Normal)
[2020-06-03] MEDS: *HR* HYDROcodone/Acet 10/325 mg TABLET PO PRN ×3 (02:43→15:07)
[2020-06-03] MEDS ORDERED: Menthol 9.1 MG LOZENGE PO PRN (02:48)
[2020-06-03] MEDS: Pantoprazole 40 MG VIAL IVP SCH (05:27)
[2020-06-03] MEDS: predniSONE 5 MG TABLET PO SCH (08:44)
[2020-06-03] MEDS: rOPINIRole 1 MG TABLET PO SCH ×2 (08:44→16:31)
[2020-06-03] MEDS: Insulin LISPRO 300 UNITS/3 ML VIAL SUBQ SCH ×4 (08:44→19:48)
[2020-06-03] MEDS: Folic Acid 1 MG TABLET PO SCH (08:44)
[2020-06-03] MEDS ORDERED: Potassium Phosphate 44 MEQ in 0.9 % Sodium Chloride 250 ML IVPB ONE (09:43)
[2020-06-03 15:57] LABS: Hematocrit 25.5 % (35.3-44.9)
[2020-06-03] MEDS: Gabapentin 300 MG CAPSULE PO SCH (16:31)
[2020-06-03] MEDS: Ipratropium/Albuterol Neb 3 ML IH PRN (21:42)
[2020-06-04] MEDS: *HR* HYDROcodone/Acet 10/325 mg TABLET PO PRN ×2 (00:35→11:55)
[2020-06-04] MEDS: GuaiFENesin Liq 200 MG/10 ML UDC PO SCH ×3 (00:35→10:32)
[2020-06-04] MEDS: Piperacillin/Tazobactam 3.375 GM in 0.9 % Sodium Chloride Mini Bag 100 ML IVPB SCH ×2 (00:37→08:29)
[2020-06-04 00:56] LABS: Basophils % 0.6 %; Eosinophils # 0.1 K/mcL (0.0-0.6); Eosinophils % 0.9 %; Hematocrit 24.3 % (35.3-44.9); Hemoglobin 7.6 g/dL (11.5-15.4); Immature Granulocytes % 5.7 % (0-4); Lymphocytes % 14.6 %; Mean Corpuscular HGB Conc 31.3 g/dL (31.6-35.5); Mean Corpuscular Hemoglobin 30.4 pg (28.0-33.3); Mean Corpuscular Volume 97.2 fL (83.0-100.0); Mean Platelet Volume 10.7 fL (9.4-12.4); Monocytes # 0.4 K/mcL (0.0-1.3); Monocytes % 6.5 %; Nucleated Red Blood Cells 0.5 /100 WBC (0); Platelet Count 158 K/mcL (140-400); Red Cell Distribution Width 17.8 % (11.5-14.5); Segmented Neutrophils % 71.7 %; White Blood Count 6.6 K/mcL (4.3-11.1)
[2020-06-04 00:58] LABS: Neutrophils # 4.7 K/mcL (1.6-8.9)
[2020-06-04 01:17] LABS: Alanine Aminotransferase 197 Units/L (7-52); Albumin 3.1 g/dL (3.5-5.7); Albumin/Globulin Ratio 1.3 (1.1-2.2); Alkaline Phosphatase 72 Units/L (34-104); Aspartate Amino Transferase 21 Units/L (13-39); BUN/Creatinine Ratio 26 (6-26); Bilirubin,Total 0.3 mg/dL (0.3-1.0); Blood Urea Nitrogen 17 mg/dL (6-20); Calcium 8.9 mg/dL (8.6-10.3); Carbon Dioxide 22 mEq/L (23-29); Chloride 117 mEq/L (98-107); Globulin 2.3 g/dL (2.4-3.5); Glucose 111 mg/dL (70-105); Magnesium 1.8 mg/dL (1.6-2.6); Osmolality,Calculated 302 (280-300); Phosphorous 2.9 mg/dL (2.7-4.5); Potassium 3.9 mEq/L (3.5-5.1); Sodium 145 mEq/L (136-145); Total Protein 5.4 g/dL (6.4-8.9); eGFR For African Americans > 60 (> 60); eGFR For Non-African Americans > 60 (> 60)
[2020-06-04] MEDS: Ipratropium/Albuterol Neb 3 ML IH PRN (03:56)
[2020-06-04 07:05] VITALS: BP 144/88
[2020-06-04] MEDS: Insulin LISPRO 300 UNITS/3 ML VIAL SUBQ SCH ×2 (08:05→11:43)
[2020-06-04] MEDS: predniSONE 5 MG TABLET PO SCH (10:32)
[2020-06-04] MEDS: Folic Acid 1 MG TABLET PO SCH (10:32)
[2020-06-04] MEDS: rOPINIRole 1 MG TABLET PO SCH (10:32)
== END 2020-06-04 12:44 | DRG 871 ==
LOC: EMEROOARM 22:20 → CDU 22:20 → SUATTDRO 05-28 04:37 → CDU 05-28 05:29 → ICNU 05-28 09:55 → SUATTDRO 05-29 09:18 → 2ANU 06-01 19:49
PROVIDERS: ADMIT Internal Medicine; ATTEND Family Medicine
PROC: ENDOEBX (2020-05-28 12:15)

== ENCOUNTER 2020-06-07 01:12 | Inpatient (IN) ==
[2020-06-07] MEDS ORDERED: Naloxone 0.4 MG/ML INJ IVP PRN (04:33)
[2020-06-07] MEDS ORDERED: Artificial Tears SOLN 15 ML BOTTLE BOTH EYES PRN (04:37)
[2020-06-07] MEDS ORDERED: D5% in Water 1,000 ML IVC PRN (04:55)
[2020-06-07] MEDS ORDERED: Dextrose Gel 15 GM/37.5 ML TUBE PO PRN ×2 (04:55)
[2020-06-07] MEDS ORDERED: *HR* Dextrose 50 % in Water (Vial) 50 ML VIAL IVP PRN (04:55)
[2020-06-07] MEDS: FentaNYL (PF) 1,000 MCG/100 ML IV.SOLN IVC SCH ×3 (05:00→17:06)
[2020-06-07 05:30] LABS: ABG Base Excess -2 mEq/L (-2 to 3); ABG HCO3 23 mEq/L (21-27); ABG Oxygen Saturation 99 % (95-98); ABG PCO2 40 mmHg (35-45); ABG PH 7.37 pH Units (7.32-7.45); ABG PO2 150 mmHg (85-104); ABG TCO2 24 mEq/L (20-26); Blood Gas VT 450 cc
[2020-06-07 06:13] LABS: Hematocrit 28.7 % (35.3-44.9); Mean Corpuscular HGB Conc 31.4 g/dL (31.6-35.5); Mean Corpuscular Hemoglobin 30.1 pg (28.0-33.3); Mean Platelet Volume 10.7 fL (9.4-12.4); Platelet Count 271 K/mcL (140-400); Red Blood Count 2.99 M/mcL (3.82-4.97); Red Cell Distribution Width 16.7 % (11.5-14.5)
[2020-06-07 06:14] LABS: White Blood Count 14.5 K/mcL (4.3-11.1)
[2020-06-07] MEDS: Azithromycin 500 MG in 0.9 % Sodium Chloride 250 ML IVPB SCH (06:40)
[2020-06-07] MEDS: *HR* Heparin 5,000 UNIT/ML VIAL SQ SCH ×2 (06:40→17:34)
[2020-06-07] MEDS: Insulin LISPRO 300 UNITS/3 ML VIAL SUBQ SCH ×3 (06:40→18:22)
[2020-06-07 06:51] LABS: Alanine Aminotransferase 95 Units/L (7-52); Albumin 3.3 g/dL (3.5-5.7); Albumin/Globulin Ratio 1.3 (1.1-2.2); Alkaline Phosphatase 107 Units/L (34-104); Aspartate Amino Transferase 35 Units/L (13-39); BUN/Creatinine Ratio 24 (6-26); Bilirubin,Indirect 0.2 mg/dL (0.0-1.0); Bilirubin,Total 0.2 mg/dL (0.3-1.0); Blood Urea Nitrogen 23 mg/dL (6-20); Calcium 9.1 mg/dL (8.6-10.3); Carbon Dioxide 14 mEq/L (23-29); Chloride 109 mEq/L (98-107); Globulin 2.6 g/dL (2.4-3.5); Glucose 78 mg/dL (70-105); Magnesium 1.4 mg/dL (1.6-2.6); Osmolality,Calculated 293 (280-300); Potassium 3.9 mEq/L (3.5-5.1); Sodium 140 mEq/L (136-145); Total Protein 5.9 g/dL (6.4-8.9); eGFR For African Americans > 60 (> 60); eGFR For Non-African Americans 60 (> 60)
[2020-06-07] MEDS: Ipratropium/Albuterol Neb 3 ML IH SCH ×5 (07:51→23:36)
[2020-06-07] MEDS: Pantoprazole 40 MG VIAL IVP SCH (08:08)
[2020-06-07] MEDS: Furosemide 40 MG/4 ML VIAL IVP SCH (08:08)
[2020-06-07] MEDS: Vancomycin 1,500 MG/265 ML IV.SOLN IVPB SCH ×2 (08:19→21:30)
[2020-06-07] MEDS: Chlorhexidine Rinse 15 ML MOUTHWASH MM SCH ×2 (08:48→21:31)
[2020-06-07] MEDS: Artificial Tears SOLN 15 ML BOTTLE BOTH EYES SCH ×4 (08:53→21:31)
[2020-06-07] MEDS: Piperacillin/Tazobactam 3.375 GM in 0.9 % Sodium Chloride Mini Bag 100 ML IVPB SCH ×2 (08:57→16:32)
[2020-06-07] MEDS ORDERED: cefTRIAXone 1,000 MG in Water for inj. (sterile) 10 ML IVP SCH (09:00)
[2020-06-07] MEDS: Acetaminophen 325 MG TABLET PO PRN (09:27)
[2020-06-07 11:46] LABS: Adenovirus Not Detected (Not Detect); Bordetella Pertussis Not Detected (Not Detect); Chlamydophila pneumoniae Not Detected (Not Detect); Coronavirus 229E Not Detected (Not Detect); Coronavirus HKU1 Not Detected (Not Detect); Coronavirus NL63 Not Detected (Not Detect); Coronavirus OC43 Not Detected (Not Detect); Human Metapneumovirus Not Detected (Not Detect); Human Rhinovirus/Enterovirus Not Detected (Not Detect); Influenza A Subtype 2009 H1 Not Detected (Not Detect); Influenza B Not Detected (Not Detect); Mycoplasma pneumoniae Not Detected (Not Detect); Parainfluenza Virus 1 Not Detected (Not Detect); Parainfluenza Virus 2 Not Detected (Not Detect); Parainfluenza Virus 3 Not Detected (Not Detect); Parainfluenza Virus 4 Not Detected (Not Detect); Respiratory Syncytial Virus Not Detected (Not Detect)
[2020-06-07] MEDS: Norepinephrine 4 MG/254 ML IV.SOLN IVC SCH (13:01)
[2020-06-07] MEDS: FentaNYL (PF) 2,500 MCG/50 ML IV.SOLN IVC SCH (22:45)
[2020-06-07 23:59] LABS: Calcium 8.2 mg/dL (8.6-10.3); Magnesium 1.6 mg/dL (1.6-2.6)
[2020-06-08 00:05] LABS: Troponin I 1.21 ng/mL (< 0.04)
[2020-06-08] MEDS ORDERED: *HR* Heparin 5,000 UNIT/ML VIAL IVP PRN ×2 (00:06)
[2020-06-08] MEDS ORDERED: *HR* Heparin 5,000 UNIT/ML VIAL IVP ONE (00:06)
[2020-06-08] MEDS ORDERED: Heparin 25,000UNIT/250ML 1/2NS 25,000 UNIT/250 ML IV.SOLN IVC SCH (00:15)
[2020-06-08] MEDS ORDERED: Potassium Phosphate 44 MEQ in 0.9 % Sodium Chloride 250 ML IVPB PRN (00:30)
[2020-06-08] MEDS: Piperacillin/Tazobactam 3.375 GM in 0.9 % Sodium Chloride Mini Bag 100 ML IVPB SCH ×4 (00:32→23:24)
[2020-06-08] MEDS: Insulin LISPRO 300 UNITS/3 ML VIAL SUBQ SCH ×5 (00:33→23:25)
[2020-06-08] MEDS: Artificial Tears SOLN 15 ML BOTTLE BOTH EYES SCH ×7 (00:34→23:25)
[2020-06-08] MEDS: Ipratropium/Albuterol Neb 3 ML IH SCH ×6 (03:41→23:34)
[2020-06-08 04:10] LABS: ABG Base Excess -3 mEq/L (-2 to 3); ABG HCO3 23 mEq/L (21-27); ABG Oxygen Saturation 92 % (95-98); ABG PCO2 44 mmHg (35-45); ABG PH 7.32 pH Units (7.32-7.45); ABG PO2 69 mmHg (85-104); ABG TCO2 24 mEq/L (20-26); Blood Gas Modality ASSIST CONTROL; Blood Gas VT 450 cc
[2020-06-08] MEDS ORDERED: Isovue-370 500 ML BOTTLE IVP ONE (06:01)
[2020-06-08] MEDS: Azithromycin 500 MG in 0.9 % Sodium Chloride 250 ML IVPB SCH (06:08)
[2020-06-08] MEDS: *HR* Midazolam HCl 2 MG/2 ML VIAL IVP PRN ×2 (06:08→10:42)
[2020-06-08 06:38] LABS: Basophils % 0.2 %; Eosinophils % 0.2 %; Hematocrit 26.7 % (35.3-44.9); Hemoglobin 8.2 g/dL (11.5-15.4); Immature Granulocytes % 1.3 % (0-4); Lymphocytes # 0.5 K/mcL (0.6-4.6); Lymphocytes % 2.5 %; Mean Corpuscular HGB Conc 30.7 g/dL (31.6-35.5); Mean Corpuscular Hemoglobin 30.5 pg (28.0-33.3); Mean Corpuscular Volume 99.3 fL (83.0-100.0); Mean Platelet Volume 10.7 fL (9.4-12.4); Monocytes # 0.6 K/mcL (0.0-1.3); Monocytes % 3.6 %; Neutrophils # 16.5 K/mcL (1.6-8.9); Platelet Count 246 K/mcL (140-400); Red Blood Count 2.69 M/mcL (3.82-4.97); Segmented Neutrophils % 92.2 %; White Blood Count 17.9 K/mcL (4.3-11.1)
[2020-06-08] MEDS: FentaNYL (PF) 2,500 MCG/50 ML IV.SOLN IVC SCH ×2 (06:46→16:45)
[2020-06-08] MEDS: Norepinephrine 4 MG/254 ML IV.SOLN IVC SCH (07:32)
[2020-06-08] MEDS: Vancomycin 1,500 MG/265 ML IV.SOLN IVPB SCH (07:36)
[2020-06-08] MEDS: Furosemide 40 MG/4 ML VIAL IVP SCH (08:06)
[2020-06-08] MEDS: Pantoprazole 40 MG VIAL IVP SCH (08:06)
[2020-06-08] MEDS: Chlorhexidine Rinse 15 ML MOUTHWASH MM SCH ×2 (08:06→20:01)
[2020-06-08 08:20] LABS: Calcium 8.5 mg/dL (8.6-10.3)
[2020-06-08 08:29] LABS: Troponin I 1.08 ng/mL (< 0.04)
[2020-06-08] MEDS ORDERED: Isovue-370 500 ML BOTTLE PO ONE (10:11)
[2020-06-08 12:52] LABS: Albumin 3.2 g/dL (3.5-5.7); Albumin/Globulin Ratio 1.2 (1.1-2.2); Bilirubin,Direct 0.2 mg/dL (0.0-0.2); Bilirubin,Indirect 0.2 mg/dL (0.0-1.0); Bilirubin,Total 0.4 mg/dL (0.3-1.0); Globulin 2.6 g/dL (2.4-3.5); Total Protein 5.8 g/dL (6.4-8.9)
[2020-06-08] MEDS: Acetaminophen 325 MG TABLET PO PRN (19:57)
[2020-06-08] MEDS: *HR* Heparin 5,000 UNIT/ML VIAL SQ SCH (21:16)
[2020-06-09] MEDS: Artificial Tears SOLN 15 ML BOTTLE BOTH EYES SCH ×6 (03:01→23:22)
[2020-06-09 03:19] LABS: VBG Ionized Calcium 1.06 mmol/L (1.15-1.35)
[2020-06-09] MEDS: Ipratropium/Albuterol Neb 3 ML IH SCH ×6 (03:36→23:23)
[2020-06-09 03:43] LABS: Basophils % 0.2 %; Eosinophils % 0.2 %; Hematocrit 24.1 % (35.3-44.9); Hemoglobin 7.1 g/dL (11.5-15.4); Immature Granulocytes % 1.6 % (0-4); Lymphocytes # 0.2 K/mcL (0.6-4.6); Lymphocytes % 1.6 %; Mean Corpuscular HGB Conc 29.5 g/dL (31.6-35.5); Mean Corpuscular Hemoglobin 29.2 pg (28.0-33.3); Mean Corpuscular Volume 99.2 fL (83.0-100.0); Mean Platelet Volume 10.8 fL (9.4-12.4); Monocytes # 0.6 K/mcL (0.0-1.3); Monocytes % 4.1 %; Neutrophils # 13.1 K/mcL (1.6-8.9); Platelet Count 250 K/mcL (140-400); Red Blood Count 2.43 M/mcL (3.82-4.97); Red Cell Distribution Width 16.7 % (11.5-14.5); Segmented Neutrophils % 92.3 %; White Blood Count 14.1 K/mcL (4.3-11.1)
[2020-06-09 03:48] LABS: Magnesium 2.1 mg/dL (1.6-2.6); Phosphorous 5.7 mg/dL (2.7-4.5); Potassium 3.7 mEq/L (3.5-5.1)
[2020-06-09] MEDS: Calcium Gluconate 1gm/50mL 1 GM/50 ML BAG IVPB PRN (04:54)
[2020-06-09] MEDS: Potassium Chloride 40 MEQ/200 ML BAG IVPB PRN ×2 (04:54→15:30)
[2020-06-09 05:00] LABS: ABG Base Excess -4 mEq/L (-2 to 3); ABG HCO3 23 mEq/L (21-27); ABG Oxygen Saturation 95 % (95-98); ABG PCO2 49 mmHg (35-45); ABG PH 7.28 pH Units (7.32-7.45); ABG PO2 88 mmHg (85-104); ABG TCO2 24 mEq/L (20-26); Blood Gas Modality AF; Blood Gas VT 500 cc
[2020-06-09] MEDS: Norepinephrine 4 MG/254 ML IV.SOLN IVC SCH (05:28)
[2020-06-09] MEDS: Insulin LISPRO 300 UNITS/3 ML VIAL SUBQ SCH ×4 (05:28→23:22)
[2020-06-09] MEDS: *HR* Heparin 5,000 UNIT/ML VIAL SQ SCH ×3 (05:28→22:08)
[2020-06-09] MEDS: Azithromycin 500 MG in 0.9 % Sodium Chloride 250 ML IVPB SCH (05:28)
[2020-06-09] MEDS: FentaNYL (PF) 2,500 MCG/50 ML IV.SOLN IVC SCH ×2 (05:30→16:38)
[2020-06-09] MEDS: Chlorhexidine Rinse 15 ML MOUTHWASH MM SCH ×2 (07:48→22:07)
[2020-06-09] MEDS: Furosemide 40 MG/4 ML VIAL IVP SCH (07:48)
[2020-06-09] MEDS: Piperacillin/Tazobactam 3.375 GM in 0.9 % Sodium Chloride Mini Bag 100 ML IVPB SCH ×3 (07:48→23:03)
[2020-06-09] MEDS: Pantoprazole 40 MG VIAL IVP SCH (07:49)
[2020-06-09] MEDS ORDERED: Vancomycin 1,500 MG/265 ML IV.SOLN IVPB SCH (08:00)
[2020-06-09] MEDS: *HR* Midazolam HCl 2 MG/2 ML VIAL IVP PRN ×2 (08:02→22:12)
[2020-06-09 12:19] LABS: VBG Ionized Calcium 1.14 mmol/L (1.15-1.35)
[2020-06-09 12:45] LABS: Potassium 3.8 mEq/L (3.5-5.1)
[2020-06-09 15:20] LABS: Thyroid Stimulating Hormone 0.292 mcIU/mL (0.340-5.600)
[2020-06-10] MEDS: Ipratropium/Albuterol Neb 3 ML IH SCH ×6 (03:30→23:26)
[2020-06-10] MEDS: Artificial Tears SOLN 15 ML BOTTLE BOTH EYES SCH ×6 (04:14→23:04)
[2020-06-10 04:21] LABS: ABG Base Excess -3 mEq/L (-2 to 3); ABG HCO3 23 mEq/L (21-27); ABG Oxygen Saturation 94 % (95-98); ABG PCO2 43 mmHg (35-45); ABG PH 7.34 pH Units (7.32-7.45); ABG PO2 77 mmHg (85-104); ABG TCO2 24 mEq/L (20-26); Blood Gas Modality AF; Blood Gas VT 550 cc
[2020-06-10 04:42] LABS: Basophils % 0.2 %; Eosinophils % 0.5 %; Hematocrit 19.3 % (35.3-44.9); Immature Granulocytes % 1.9 % (0-4); Lymphocytes # 0.2 K/mcL (0.6-4.6); Mean Corpuscular HGB Conc 31.1 g/dL (31.6-35.5); Mean Corpuscular Hemoglobin 30.8 pg (28.0-33.3); Mean Platelet Volume 10.5 fL (9.4-12.4); Monocytes # 0.3 K/mcL (0.0-1.3); Monocytes % 5.4 %; Neutrophils # 5.6 K/mcL (1.6-8.9); Nucleated Red Blood Cells 0.3 /100 WBC (0); Platelet Count 183 K/mcL (140-400); Red Blood Count 1.95 M/mcL (3.82-4.97); Red Cell Distribution Width 16.8 % (11.5-14.5)
[2020-06-10 04:42] LABS: VBG Ionized Calcium 1.14 mmol/L (1.15-1.35)
[2020-06-10 04:46] LABS: White Blood Count 6.3 K/mcL (4.3-11.1)
[2020-06-10 04:56] LABS: Calcium 8.4 mg/dL (8.6-10.3); Magnesium 2.2 mg/dL (1.6-2.6); Phosphorous 3.6 mg/dL (2.7-4.5); Potassium 3.9 mEq/L (3.5-5.1)
[2020-06-10] MEDS: *HR* Heparin 5,000 UNIT/ML VIAL SQ SCH (05:08)
[2020-06-10] MEDS: Insulin LISPRO 300 UNITS/3 ML VIAL SUBQ SCH ×4 (05:08→23:04)
[2020-06-10] MEDS: Norepinephrine 4 MG/254 ML IV.SOLN IVC SCH (05:08)
[2020-06-10] MEDS: FentaNYL (PF) 2,500 MCG/50 ML IV.SOLN IVC SCH ×2 (05:09→17:49)
[2020-06-10] MEDS: Calcium Gluconate 1gm/50mL 1 GM/50 ML BAG IVPB PRN (05:10)
[2020-06-10] MEDS: Potassium Chloride 40 MEQ/200 ML BAG IVPB PRN ×3 (05:10→22:48)
[2020-06-10] MEDS ORDERED: 0.9 % Sodium Chloride 250 ML ONE (06:21)
[2020-06-10] MEDS ORDERED: Pantoprazole 40 MG in 0.9 % Sodium Chloride Mini Bag 100 ML IVC SCH (07:30)
[2020-06-10] MEDS: Chlorhexidine Rinse 15 ML MOUTHWASH MM SCH ×2 (07:47→19:30)
[2020-06-10] MEDS: Piperacillin/Tazobactam 3.375 GM in 0.9 % Sodium Chloride Mini Bag 100 ML IVPB SCH ×3 (07:47→23:03)
[2020-06-10] MEDS ORDERED: Furosemide 40 MG/4 ML VIAL IVP ONE (09:00)
[2020-06-10 11:19] LABS: VBG Ionized Calcium 1.24 mmol/L (1.15-1.35)
[2020-06-10 11:56] LABS: BUN/Creatinine Ratio 45 (6-26); Blood Urea Nitrogen 49 mg/dL (6-20); Calcium 9.1 mg/dL (8.6-10.3); Carbon Dioxide 22 mEq/L (23-29); Chloride 112 mEq/L (98-107); Glucose 143 mg/dL (70-105); Magnesium 2.1 mg/dL (1.6-2.6); Osmolality,Calculated 313 (280-300); Potassium 3.6 mEq/L (3.5-5.1); Sodium 144 mEq/L (136-145); eGFR For African Americans > 60 (> 60); eGFR For Non-African Americans 52 (> 60)
[2020-06-10] MEDS: polyethylene glycoL 3350 17 GM POWD.PACK PO SCH ×2 (12:42→19:30)
[2020-06-10] MEDS: Furosemide 40 MG/4 ML VIAL IVP SCH (12:42)
[2020-06-10 16:09] LABS: Basophils % 0.4 %; Eosinophils # 0.1 K/mcL (0.0-0.6); Eosinophils % 0.6 %; Hematocrit 26.4 % (35.3-44.9); Immature Granulocytes % 1.9 % (0-4); Lymphocytes # 0.4 K/mcL (0.6-4.6); Lymphocytes % 4.4 %; Mean Corpuscular HGB Conc 31.4 g/dL (31.6-35.5); Mean Corpuscular Hemoglobin 29.9 pg (28.0-33.3); Monocytes # 0.6 K/mcL (0.0-1.3); Monocytes % 6.5 %; Neutrophils # 7.3 K/mcL (1.6-8.9); Nucleated Red Blood Cells 0.8 /100 WBC (0); Platelet Count 271 K/mcL (140-400); Red Blood Count 2.78 M/mcL (3.82-4.97); Red Cell Distribution Width 17.5 % (11.5-14.5); Segmented Neutrophils % 86.2 %; White Blood Count 8.5 K/mcL (4.3-11.1)
[2020-06-10 16:17] LABS: Hemoglobin 8.3 g/dL (11.5-15.4)
[2020-06-10] MEDS: Pantoprazole 40 MG VIAL IVP SCH (17:50)
[2020-06-10 22:19] LABS: BUN/Creatinine Ratio 46 (6-26); Blood Urea Nitrogen 46 mg/dL (6-20); Calcium 9.3 mg/dL (8.6-10.3); Carbon Dioxide 23 mEq/L (23-29); Chloride 116 mEq/L (98-107); Glucose 125 mg/dL (70-105); Osmolality,Calculated 321 (280-300); Potassium 3.5 mEq/L (3.5-5.1); Sodium 149 mEq/L (136-145); eGFR For African Americans > 60 (> 60); eGFR For Non-African Americans 57 (> 60)
[2020-06-11] MEDS: Insulin LISPRO 300 UNITS/3 ML VIAL SUBQ SCH ×6 (03:39→19:52)
[2020-06-11] MEDS: Artificial Tears SOLN 15 ML BOTTLE BOTH EYES SCH ×6 (03:39→23:02)
[2020-06-11] MEDS: Norepinephrine 4 MG/254 ML IV.SOLN IVC SCH (03:40)
[2020-06-11] MEDS: Ipratropium/Albuterol Neb 3 ML IH SCH ×6 (03:44→23:54)
[2020-06-11 03:55] LABS: ABG Base Excess -1 mEq/L (-2 to 3); ABG HCO3 25 mEq/L (21-27); ABG Oxygen Saturation 99 % (95-98); ABG PCO2 50 mmHg (35-45); ABG PH 7.32 pH Units (7.32-7.45); ABG PO2 142 mmHg (85-104); ABG TCO2 27 mEq/L (20-26); Blood Gas Modality ASSIST CONTROL; Blood Gas VT 550 cc
[2020-06-11 03:57] LABS: Basophils % 0.7 %; Eosinophils # 0.1 K/mcL (0.0-0.6); Eosinophils % 0.9 %; Hematocrit 24.2 % (35.3-44.9); Hemoglobin 7.3 g/dL (11.5-15.4); Immature Granulocytes % 1.9 % (0-4); Lymphocytes # 0.4 K/mcL (0.6-4.6); Lymphocytes % 8.2 %; Mean Corpuscular HGB Conc 30.2 g/dL (31.6-35.5); Mean Corpuscular Hemoglobin 28.7 pg (28.0-33.3); Mean Corpuscular Volume 95.3 fL (83.0-100.0); Mean Platelet Volume 10.2 fL (9.4-12.4); Monocytes # 0.6 K/mcL (0.0-1.3); Monocytes % 10.2 %; Neutrophils # 4.2 K/mcL (1.6-8.9); Nucleated Red Blood Cells 1.3 /100 WBC (0); Platelet Count 238 K/mcL (140-400); Red Blood Count 2.54 M/mcL (3.82-4.97); Red Cell Distribution Width 17.9 % (11.5-14.5); Segmented Neutrophils % 78.1 %; White Blood Count 5.4 K/mcL (4.3-11.1)
[2020-06-11 04:14] LABS: BUN/Creatinine Ratio 44 (6-26); Blood Urea Nitrogen 42 mg/dL (6-20); Calcium 9.3 mg/dL (8.6-10.3); Carbon Dioxide 23 mEq/L (23-29); Chloride 118 mEq/L (98-107); Glucose 132 mg/dL (70-105); Magnesium 2.1 mg/dL (1.6-2.6); Osmolality,Calculated 318 (280-300); Phosphorous 2.9 mg/dL (2.7-4.5); Potassium 3.8 mEq/L (3.5-5.1); Sodium 148 mEq/L (136-145); eGFR For African Americans > 60 (> 60); eGFR For Non-African Americans 60 (> 60)
[2020-06-11 04:19] LABS: VBG Ionized Calcium 1.27 mmol/L (1.15-1.35)
[2020-06-11] MEDS: Pantoprazole 40 MG VIAL IVP SCH ×2 (05:07→17:31)
[2020-06-11] MEDS: Potassium Chloride 40 MEQ/200 ML BAG IVPB PRN ×2 (05:15→15:31)
[2020-06-11] MEDS: FentaNYL (PF) 2,500 MCG/50 ML IV.SOLN IVC SCH ×2 (06:30→18:47)
[2020-06-11] MEDS: Chlorhexidine Rinse 15 ML MOUTHWASH MM SCH ×2 (07:29→19:58)
[2020-06-11] MEDS: Piperacillin/Tazobactam 3.375 GM in 0.9 % Sodium Chloride Mini Bag 100 ML IVPB SCH ×3 (07:29→23:02)
[2020-06-11] MEDS: polyethylene glycoL 3350 17 GM POWD.PACK PO SCH ×2 (07:29→19:58)
[2020-06-11] MEDS: Furosemide 40 MG/4 ML VIAL IVP SCH (07:29)
[2020-06-11] MEDS ORDERED: Isovue-370 500 ML BOTTLE IVP ONE (08:59)
[2020-06-11] MEDS ORDERED: Pantoprazole 40 MG VIAL IVP SCH (09:00)
[2020-06-11] MEDS ORDERED: SODIUM CHLORIDE/NAHCO3/KCL/PEG 4,000 ML SOLN.RECON PO ONE (10:49)
[2020-06-11] MEDS: Vancomycin 1,250 MG/262.5 ML IV.SOLN IVPB SCH ×2 (11:37→23:02)
[2020-06-11] MEDS ORDERED: *HR* Metoprolol 5 MG/5 ML VIAL IVP PRN (16:02)
[2020-06-11] MEDS: *HR* Midazolam HCl 2 MG/2 ML VIAL IVP PRN (16:07)
[2020-06-11] MEDS: Nystatin POWDER 30 GM BOTTLE TP SCH (19:58)
[2020-06-12] MEDS: Insulin LISPRO 300 UNITS/3 ML VIAL SUBQ SCH ×6 (00:03→19:36)
[2020-06-12] MEDS ORDERED: Potassium Chloride Elixir 20 MEQ/15 ML UDC GTUBE ONE ×2 (00:09→04:43)
[2020-06-12] MEDS: Norepinephrine 4 MG/254 ML IV.SOLN IVC SCH (03:11)
[2020-06-12] MEDS: Artificial Tears SOLN 15 ML BOTTLE BOTH EYES SCH ×5 (03:11→19:36)
[2020-06-12 03:31] LABS: Basophils % 0.7 %; Eosinophils % 0.7 %; Hematocrit 24.6 % (35.3-44.9); Hemoglobin 7.2 g/dL (11.5-15.4); Immature Granulocytes % 2.6 % (0-4); Lymphocytes # 0.5 K/mcL (0.6-4.6); Lymphocytes % 8.5 %; Mean Corpuscular HGB Conc 29.3 g/dL (31.6-35.5); Mean Corpuscular Hemoglobin 28.6 pg (28.0-33.3); Mean Corpuscular Volume 97.6 fL (83.0-100.0); Monocytes # 0.6 K/mcL (0.0-1.3); Neutrophils # 4.4 K/mcL (1.6-8.9); Nucleated Red Blood Cells 0.7 /100 WBC (0); Platelet Count 239 K/mcL (140-400); Red Blood Count 2.52 M/mcL (3.82-4.97); Red Cell Distribution Width 18.1 % (11.5-14.5); Segmented Neutrophils % 76.5 %; White Blood Count 5.8 K/mcL (4.3-11.1)
[2020-06-12 03:33] LABS: VBG Ionized Calcium 1.38 mmol/L (1.15-1.35)
[2020-06-12 03:46] LABS: BUN/Creatinine Ratio 40 (6-26); Blood Urea Nitrogen 29 mg/dL (6-20); Calcium 9.6 mg/dL (8.6-10.3); Carbon Dioxide 23 mEq/L (23-29); Chloride 118 mEq/L (98-107); Glucose 102 mg/dL (70-105); Osmolality,Calculated 314 (280-300); Potassium 3.9 mEq/L (3.5-5.1); Sodium 149 mEq/L (136-145); eGFR For African Americans > 60 (> 60); eGFR For Non-African Americans > 60 (> 60)
[2020-06-12] MEDS: Ipratropium/Albuterol Neb 3 ML IH SCH ×6 (04:32→23:54)
[2020-06-12] MEDS: Pantoprazole 40 MG VIAL IVP SCH ×2 (04:55→18:36)
[2020-06-12 05:03] LABS: ABG Base Excess -2 mEq/L (-2 to 3); ABG HCO3 24 mEq/L (21-27); ABG Oxygen Saturation 90 % (95-98); ABG PCO2 44 mmHg (35-45); ABG PH 7.34 pH Units (7.32-7.45); ABG PO2 62 mmHg (85-104); ABG TCO2 25 mEq/L (20-26); Blood Gas Modality ASSIST CONTROL; Blood Gas VT 550 cc
[2020-06-12] MEDS: FentaNYL (PF) 2,500 MCG/50 ML IV.SOLN IVC SCH ×2 (07:03→20:06)
[2020-06-12] MEDS: Piperacillin/Tazobactam 3.375 GM in 0.9 % Sodium Chloride Mini Bag 100 ML IVPB SCH ×2 (08:28→16:34)
[2020-06-12] MEDS: polyethylene glycoL 3350 17 GM POWD.PACK PO SCH ×2 (08:28→19:35)
[2020-06-12] MEDS: Chlorhexidine Rinse 15 ML MOUTHWASH MM SCH ×2 (08:28→19:35)
[2020-06-12] MEDS: Nystatin POWDER 30 GM BOTTLE TP SCH ×2 (08:29→19:35)
[2020-06-12] MEDS: Furosemide 40 MG/4 ML VIAL IVP SCH (08:29)
[2020-06-12] MEDS ORDERED: SODIUM CHLORIDE/NAHCO3/KCL/PEG 4,000 ML SOLN.RECON PO ONE (09:15)
[2020-06-12] MEDS: Hydrocortisone Sodium Succ 100 MG/2 ML VIAL IVP SCH ×2 (11:13→19:35)
[2020-06-12] MEDS: Vancomycin 1,250 MG/262.5 ML IV.SOLN IVPB SCH (11:14)
[2020-06-12 11:22] LABS: Albumin 2.9 g/dL (3.5-5.7); Albumin/Globulin Ratio 0.8 (1.1-2.2); Bilirubin,Direct 0.1 mg/dL (0.0-0.2); Bilirubin,Indirect 0.4 mg/dL (0.0-1.0); Bilirubin,Total 0.5 mg/dL (0.3-1.0); Globulin 3.5 g/dL (2.4-3.5); Total Protein 6.4 g/dL (6.4-8.9)
[2020-06-12 11:46] LABS: Potassium 4.2 mEq/L (3.5-5.1)
[2020-06-12] MEDS: *HR* Midazolam HCl 2 MG/2 ML VIAL IVP PRN (13:09)
[2020-06-12 15:39] LABS: Hematocrit 26.3 % (35.3-44.9); Hemoglobin 7.7 g/dL (11.5-15.4); Mean Corpuscular HGB Conc 29.3 g/dL (31.6-35.5); Mean Corpuscular Hemoglobin 29.3 pg (28.0-33.3); Mean Platelet Volume 10.6 fL (9.4-12.4); Platelet Count 261 K/mcL (140-400); Red Blood Count 2.63 M/mcL (3.82-4.97); Red Cell Distribution Width 18.1 % (11.5-14.5); White Blood Count 6.8 K/mcL (4.3-11.1)
[2020-06-12] MEDS: rOPINIRole 1 MG TABLET PO SCH (19:35)
[2020-06-12] MEDS: Gabapentin 300 MG CAPSULE PO SCH (19:35)
[2020-06-13] MEDS: Artificial Tears SOLN 15 ML BOTTLE BOTH EYES SCH ×7 (00:57→23:21)
[2020-06-13] MEDS: Piperacillin/Tazobactam 3.375 GM in 0.9 % Sodium Chloride Mini Bag 100 ML IVPB SCH ×4 (00:57→23:21)
[2020-06-13] MEDS: Insulin LISPRO 300 UNITS/3 ML VIAL SUBQ SCH ×7 (00:58→23:22)
[2020-06-13] MEDS: Ipratropium/Albuterol Neb 3 ML IH SCH ×6 (03:44→23:44)
[2020-06-13 04:07] LABS: ABG Base Excess -2 mEq/L (-2 to 3); ABG HCO3 23 mEq/L (21-27); ABG Oxygen Saturation 98 % (95-98); ABG PCO2 43 mmHg (35-45); ABG PH 7.34 pH Units (7.32-7.45); ABG PO2 103 mmHg (85-104); ABG TCO2 24 mEq/L (20-26); Blood Gas Modality ASSIST CONTROL; Blood Gas VT 550 cc
[2020-06-13 04:12] LABS: Basophils % 0.4 %; Eosinophils % 0.6 %; Hematocrit 22.6 % (35.3-44.9); Hemoglobin 6.6 g/dL (11.5-15.4); Immature Granulocytes % 5.3 % (0-4); Lymphocytes # 0.5 K/mcL (0.6-4.6); Lymphocytes % 9.2 %; Mean Corpuscular HGB Conc 29.2 g/dL (31.6-35.5); Mean Corpuscular Hemoglobin 28.7 pg (28.0-33.3); Mean Corpuscular Volume 98.3 fL (83.0-100.0); Mean Platelet Volume 10.2 fL (9.4-12.4); Monocytes # 0.4 K/mcL (0.0-1.3); Monocytes % 7.5 %; Neutrophils # 3.9 K/mcL (1.6-8.9); Platelet Count 217 K/mcL (140-400); White Blood Count 5.1 K/mcL (4.3-11.1)
[2020-06-13] MEDS: Pantoprazole 40 MG VIAL IVP SCH ×2 (04:22→04:54)
[2020-06-13 04:25] LABS: BUN/Creatinine Ratio 37 (6-26); Blood Urea Nitrogen 25 mg/dL (6-20); Calcium 9.8 mg/dL (8.6-10.3); Carbon Dioxide 22 mEq/L (23-29); Chloride 118 mEq/L (98-107); Glucose 111 mg/dL (70-105); Osmolality,Calculated 315 (280-300); Potassium 3.7 mEq/L (3.5-5.1); Sodium 150 mEq/L (136-145); eGFR For African Americans > 60 (> 60); eGFR For Non-African Americans > 60 (> 60)
[2020-06-13] MEDS: Norepinephrine 4 MG/254 ML IV.SOLN IVC SCH (04:54)
[2020-06-13 05:09] LABS: Platelet Estimate Normal (Normal)
[2020-06-13] MEDS ORDERED: 0.9 % Sodium Chloride 250 ML ONE (06:47)
[2020-06-13] MEDS: Dexmedetomidine HCl 400 MCG/100 ML MLS IVC SCH ×2 (06:50→16:16)
[2020-06-13] MEDS: Chlorhexidine Rinse 15 ML MOUTHWASH MM SCH ×2 (08:17→20:04)
[2020-06-13] MEDS: Hydrocortisone Sodium Succ 100 MG/2 ML VIAL IVP SCH ×2 (08:17→20:04)
[2020-06-13] MEDS: Furosemide 40 MG/4 ML VIAL IVP SCH (08:17)
[2020-06-13] MEDS: polyethylene glycoL 3350 17 GM POWD.PACK PO SCH ×2 (08:17→20:05)
[2020-06-13] MEDS: Nystatin POWDER 30 GM BOTTLE TP SCH ×2 (08:18→20:06)
[2020-06-13] MEDS: FentaNYL (PF) 2,500 MCG/50 ML IV.SOLN IVC SCH ×2 (09:21→21:26)
[2020-06-13] MEDS: Vancomycin 1,250 MG/262.5 ML IV.SOLN IVPB SCH (09:23)
[2020-06-13] MEDS: *HR* Midazolam HCl 2 MG/2 ML VIAL IVP PRN (13:11)
[2020-06-13 13:20] LABS: Basophils # 0.1 K/mcL (0.0-0.2); Basophils % 0.7 %; Eosinophils % 0.4 %; Hematocrit 26.8 % (35.3-44.9); Immature Granulocytes % 8.2 % (0-4); Lymphocytes # 0.5 K/mcL (0.6-4.6); Lymphocytes % 7.1 %; Mean Corpuscular HGB Conc 30.6 g/dL (31.6-35.5); Mean Corpuscular Hemoglobin 30.1 pg (28.0-33.3); Mean Corpuscular Volume 98.5 fL (83.0-100.0); Mean Platelet Volume 10.5 fL (9.4-12.4); Monocytes # 0.3 K/mcL (0.0-1.3); Monocytes % 4.7 %; Neutrophils # 5.6 K/mcL (1.6-8.9); Nucleated Red Blood Cells 0.8 /100 WBC (0); Platelet Count 252 K/mcL (140-400); Red Blood Count 2.72 M/mcL (3.82-4.97); Red Cell Distribution Width 17.2 % (11.5-14.5); Segmented Neutrophils % 78.9 %; White Blood Count 7.1 K/mcL (4.3-11.1)
[2020-06-13 13:21] LABS: Hemoglobin 8.2 g/dL (11.5-15.4)
[2020-06-13] MEDS ORDERED: SODIUM CHLORIDE/NAHCO3/KCL/PEG 4,000 ML SOLN.RECON PO ONE (17:00)
[2020-06-13] MEDS: Gabapentin 300 MG CAPSULE PO SCH (20:04)
[2020-06-13] MEDS: rOPINIRole 1 MG TABLET PO SCH (20:04)
[2020-06-14 03:49] LABS: Hematocrit 25.7 % (35.3-44.9); Hemoglobin 7.7 g/dL (11.5-15.4); Mean Corpuscular Hemoglobin 29.4 pg (28.0-33.3); Mean Corpuscular Volume 98.1 fL (83.0-100.0); Mean Platelet Volume 10.3 fL (9.4-12.4); Nucleated Red Blood Cells 1.3 /100 WBC (0); Platelet Count 249 K/mcL (140-400); Red Blood Count 2.62 M/mcL (3.82-4.97); Red Cell Distribution Width 17.2 % (11.5-14.5); White Blood Count 6.1 K/mcL (4.3-11.1)
[2020-06-14] MEDS: Artificial Tears SOLN 15 ML BOTTLE BOTH EYES SCH ×6 (03:53→23:36)
[2020-06-14] MEDS: Insulin LISPRO 300 UNITS/3 ML VIAL SUBQ SCH ×6 (03:53→23:32)
[2020-06-14 04:07] LABS: Anisocytosis 1+ (Not Present); Large Platelets Present (Not Present); Lymphocytes # 0.4 K/mcL (0.6-4.6); Neutrophils # 5.5 K/mcL (1.6-8.9); Platelet Estimate Normal (Normal)
[2020-06-14 04:16] LABS: BUN/Creatinine Ratio 39 (6-26); Blood Urea Nitrogen 27 mg/dL (6-20); Calcium 9.9 mg/dL (8.6-10.3); Carbon Dioxide 21 mEq/L (23-29); Chloride 115 mEq/L (98-107); Glucose 112 mg/dL (70-105); Osmolality,Calculated 310 (280-300); Potassium 3.4 mEq/L (3.5-5.1); Sodium 147 mEq/L (136-145); eGFR For African Americans > 60 (> 60); eGFR For Non-African Americans > 60 (> 60)
[2020-06-14] MEDS: Ipratropium/Albuterol Neb 3 ML IH SCH ×5 (04:25→19:36)
[2020-06-14] MEDS: FentaNYL (PF) 2,500 MCG/50 ML IV.SOLN IVC SCH ×2 (04:40→15:23)
[2020-06-14] MEDS: Pantoprazole 40 MG VIAL IVP SCH ×2 (05:09→18:57)
[2020-06-14] MEDS: Potassium Chloride 40 MEQ/200 ML BAG IVPB PRN (05:09)
[2020-06-14 05:33] LABS: ABG Base Excess -3 mEq/L (-2 to 3); ABG HCO3 23 mEq/L (21-27); ABG Oxygen Saturation 98 % (95-98); ABG PCO2 41 mmHg (35-45); ABG PH 7.35 pH Units (7.32-7.45); ABG PO2 112 mmHg (85-104); ABG TCO2 24 mEq/L (20-26); Blood Gas Modality ASSIST CONTROL; Blood Gas VT 550 cc
[2020-06-14] MEDS: Dexmedetomidine HCl 400 MCG/100 ML MLS IVC SCH ×2 (06:23→20:17)
[2020-06-14] MEDS: Norepinephrine 4 MG/254 ML IV.SOLN IVC SCH (07:47)
[2020-06-14] MEDS: Piperacillin/Tazobactam 3.375 GM in 0.9 % Sodium Chloride Mini Bag 100 ML IVPB SCH ×3 (09:18→23:37)
[2020-06-14] MEDS: Chlorhexidine Rinse 15 ML MOUTHWASH MM SCH ×2 (09:18→20:05)
[2020-06-14] MEDS: Hydrocortisone Sodium Succ 100 MG/2 ML VIAL IVP SCH ×2 (09:18→20:05)
[2020-06-14] MEDS: polyethylene glycoL 3350 17 GM POWD.PACK PO SCH ×2 (09:19→20:05)
[2020-06-14] MEDS: Nystatin POWDER 30 GM BOTTLE TP SCH ×2 (09:20→20:06)
[2020-06-14 09:26] LABS: Adenovirus Not Detected (Not Detect); Bordetella Pertussis Not Detected (Not Detect); Chlamydophila pneumoniae Not Detected (Not Detect); Coronavirus 229E Not Detected (Not Detect); Coronavirus HKU1 Not Detected (Not Detect); Coronavirus NL63 Not Detected (Not Detect); Coronavirus OC43 Not Detected (Not Detect); Human Metapneumovirus Not Detected (Not Detect); Human Rhinovirus/Enterovirus Not Detected (Not Detect); Influenza A Subtype 2009 H1 Not Detected (Not Detect); Influenza B Not Detected (Not Detect); Mycoplasma pneumoniae Not Detected (Not Detect); Parainfluenza Virus 1 Not Detected (Not Detect); Parainfluenza Virus 2 Not Detected (Not Detect); Parainfluenza Virus 3 Not Detected (Not Detect); Parainfluenza Virus 4 Not Detected (Not Detect); Respiratory Syncytial Virus Not Detected (Not Detect); SARS-CoV-2 Not Detected (Not Detect)
[2020-06-14] MEDS: *HR* Midazolam HCl 2 MG/2 ML VIAL IVP PRN (13:58)
[2020-06-14] MEDS ORDERED: *HR* Alteplase (Cathflo) 2 MG VIAL IVP ONE (14:30)
[2020-06-14] MEDS: Potassium Chloride Elixir 20 MEQ/15 ML UDC PO PRN ×2 (15:00→22:17)
[2020-06-14] MEDS: rOPINIRole 1 MG TABLET PO SCH (20:05)
[2020-06-14] MEDS: Gabapentin 300 MG CAPSULE PO SCH (20:05)
[2020-06-14] MEDS ORDERED: Vancomycin 750 MG VIAL ONE (23:40)
[2020-06-15] MEDS: Ipratropium/Albuterol Neb 3 ML IH SCH ×7 (00:04→23:22)
[2020-06-15] MEDS: *HR* Midazolam HCl 2 MG/2 ML VIAL IVP PRN ×7 (00:28→20:08)
[2020-06-15] MEDS: FentaNYL (PF) 2,500 MCG/50 ML IV.SOLN IVC SCH ×2 (03:24→14:50)
[2020-06-15] MEDS: Artificial Tears SOLN 15 ML BOTTLE BOTH EYES SCH ×6 (03:36→23:04)
[2020-06-15] MEDS: Insulin LISPRO 300 UNITS/3 ML VIAL SUBQ SCH ×6 (03:36→23:08)
[2020-06-15 04:05] LABS: Hematocrit 25.2 % (35.3-44.9); Hemoglobin 7.5 g/dL (11.5-15.4); Mean Corpuscular HGB Conc 29.8 g/dL (31.6-35.5); Mean Corpuscular Volume 97.3 fL (83.0-100.0); Mean Platelet Volume 10.4 fL (9.4-12.4); Nucleated Red Blood Cells 0.8 /100 WBC (0); Platelet Count 268 K/mcL (140-400); Red Blood Count 2.59 M/mcL (3.82-4.97); White Blood Count 7.5 K/mcL (4.3-11.1)
[2020-06-15 04:11] LABS: BUN/Creatinine Ratio 36 (6-26); Blood Urea Nitrogen 21 mg/dL (6-20); Calcium 8.9 mg/dL (8.6-10.3); Carbon Dioxide 21 mEq/L (23-29); Chloride 119 mEq/L (98-107); Glucose 122 mg/dL (70-105); Magnesium 1.6 mg/dL (1.6-2.6); Osmolality,Calculated 306 (280-300); Phosphorous 2.7 mg/dL (2.7-4.5); Potassium 3.5 mEq/L (3.5-5.1); Sodium 146 mEq/L (136-145); eGFR For African Americans > 60 (> 60); eGFR For Non-African Americans > 60 (> 60)
[2020-06-15 04:29] LABS: ABG Base Excess -3 mEq/L (-2 to 3); ABG HCO3 23 mEq/L (21-27); ABG Oxygen Saturation 95 % (95-98); ABG PCO2 39 mmHg (35-45); ABG PH 7.37 pH Units (7.32-7.45); ABG PO2 79 mmHg (85-104); ABG TCO2 24 mEq/L (20-26); Blood Gas VT 550 cc
[2020-06-15] MEDS: Pantoprazole 40 MG VIAL IVP SCH ×2 (05:15→17:37)
[2020-06-15] MEDS: Potassium Chloride Elixir 20 MEQ/15 ML UDC PO PRN (05:15)
[2020-06-15 05:35] LABS: Anisocytosis 1+ (Not Present); Lymphocytes # 0.6 K/mcL (0.6-4.6); Monocytes # 0.3 K/mcL (0.0-1.3); Neutrophils # 6.3 K/mcL (1.6-8.9); Platelet Estimate Normal (Normal)
[2020-06-15] MEDS: Norepinephrine 4 MG/254 ML IV.SOLN IVC SCH (07:36)
[2020-06-15] MEDS: Piperacillin/Tazobactam 3.375 GM in 0.9 % Sodium Chloride Mini Bag 100 ML IVPB SCH ×3 (07:38→23:03)
[2020-06-15] MEDS: Chlorhexidine Rinse 15 ML MOUTHWASH MM SCH ×2 (08:18→19:59)
[2020-06-15] MEDS: Hydrocortisone Sodium Succ 100 MG/2 ML VIAL IVP SCH ×3 (08:18→20:34)
[2020-06-15] MEDS ORDERED: Furosemide 40 MG/4 ML VIAL IVP ONE (08:20)
[2020-06-15] MEDS: polyethylene glycoL 3350 17 GM POWD.PACK PO SCH ×2 (08:21→20:00)
[2020-06-15] MEDS: Nystatin POWDER 30 GM BOTTLE TP SCH ×2 (08:36→20:01)
[2020-06-15] MEDS: Acetaminophen 325 MG TABLET PO PRN ×2 (08:36→15:52)
[2020-06-15 12:00] LABS: Magnesium 1.9 mg/dL (1.6-2.6)
[2020-06-15] MEDS: Dexmedetomidine HCl 400 MCG/100 ML MLS IVC SCH ×2 (13:24→23:02)
[2020-06-15] MEDS: rOPINIRole 1 MG TABLET PO SCH ×2 (17:38→20:34)
[2020-06-15] MEDS: Gabapentin 400 MG CAPSULE PO SCH (20:00)
[2020-06-15] MEDS: Furosemide 40 MG/4 ML VIAL IVP SCH (20:00)
[2020-06-16] MEDS: *HR* Midazolam HCl 2 MG/2 ML VIAL IVP PRN ×3 (02:00→08:56)
[2020-06-16] MEDS: Ipratropium/Albuterol Neb 3 ML IH SCH ×5 (03:16→20:04)
[2020-06-16 03:55] LABS: ABG Base Excess -1 mEq/L (-2 to 3); ABG HCO3 23 mEq/L (21-27); ABG Oxygen Saturation 97 % (95-98); ABG PCO2 37 mmHg (35-45); ABG PH 7.41 pH Units (7.32-7.45); ABG PO2 87 mmHg (85-104); ABG TCO2 24 mEq/L (20-26); Blood Gas Modality ASSIST CONTROL; Blood Gas VT 500 cc
[2020-06-16] MEDS: Artificial Tears SOLN 15 ML BOTTLE BOTH EYES SCH ×6 (04:08→23:17)
[2020-06-16] MEDS: Insulin LISPRO 300 UNITS/3 ML VIAL SUBQ SCH ×5 (04:09→19:57)
[2020-06-16 04:19] LABS: Hematocrit 26.3 % (35.3-44.9); Hemoglobin 7.9 g/dL (11.5-15.4); Lymphocytes # 0.6 K/mcL (0.6-4.6); Mean Corpuscular Hemoglobin 29.3 pg (28.0-33.3); Mean Corpuscular Volume 97.4 fL (83.0-100.0); Mean Platelet Volume 9.9 fL (9.4-12.4); Nucleated Red Blood Cells 0.4 /100 WBC (0); Platelet Count 261 K/mcL (140-400); Red Cell Distribution Width 17.2 % (11.5-14.5); White Blood Count 7.1 K/mcL (4.3-11.1)
[2020-06-16 04:22] LABS: VBG Ionized Calcium 1.37 mmol/L (1.15-1.35)
[2020-06-16 04:24] LABS: INR 1.3; Prothrombin Time 14.8 Seconds (9.4-12.1)
[2020-06-16 04:35] LABS: Anisocytosis 1+ (Not Present); Basophils # 0.1 K/mcL (0.0-0.2); Eosinophils # 0.1 K/mcL (0.0-0.6); Monocytes # 0.3 K/mcL (0.0-1.3); Platelet Estimate Normal (Normal)
[2020-06-16 04:36] LABS: Macrocytosis Present (Not Present); Polychromasia 1+ (Not Present)
[2020-06-16 04:40] LABS: Alanine Aminotransferase 23 Units/L (7-52); Albumin 2.7 g/dL (3.5-5.7); Albumin/Globulin Ratio 0.9 (1.1-2.2); Alkaline Phosphatase 79 Units/L (34-104); Aspartate Amino Transferase 13 Units/L (13-39); BUN/Creatinine Ratio 35 (6-26); Bilirubin,Total 0.3 mg/dL (0.3-1.0); Blood Urea Nitrogen 21 mg/dL (6-20); Calcium 9.7 mg/dL (8.6-10.3); Carbon Dioxide 22 mEq/L (23-29); Chloride 115 mEq/L (98-107); Glucose 113 mg/dL (70-105); Magnesium 1.6 mg/dL (1.6-2.6); Osmolality,Calculated 306 (280-300); Phosphorous 2.9 mg/dL (2.7-4.5); Potassium 3.1 mEq/L (3.5-5.1); Sodium 146 mEq/L (136-145); Total Protein 5.7 g/dL (6.4-8.9); eGFR For African Americans > 60 (> 60); eGFR For Non-African Americans > 60 (> 60)
[2020-06-16] MEDS: Pantoprazole 40 MG VIAL IVP SCH ×2 (06:39→16:45)
[2020-06-16] MEDS: Norepinephrine 4 MG/254 ML IV.SOLN IVC SCH (06:39)
[2020-06-16] MEDS: FentaNYL (PF) 2,500 MCG/50 ML IV.SOLN IVC SCH ×2 (07:00→22:57)
[2020-06-16] MEDS: Furosemide 40 MG/4 ML VIAL IVP SCH ×2 (08:41→20:00)
[2020-06-16] MEDS ORDERED: Isovue-370 500 ML BOTTLE IVP ONE (08:53)
[2020-06-16] MEDS: Chlorhexidine Rinse 15 ML MOUTHWASH MM SCH ×2 (09:00→20:00)
[2020-06-16] MEDS: Potassium Chloride Elixir 20 MEQ/15 ML UDC PO PRN (09:00)
[2020-06-16] MEDS: Piperacillin/Tazobactam 3.375 GM in 0.9 % Sodium Chloride Mini Bag 100 ML IVPB SCH ×3 (09:01→23:17)
[2020-06-16] MEDS: Hydrocortisone Sodium Succ 100 MG/2 ML VIAL IVP SCH ×2 (09:01→20:01)
[2020-06-16] MEDS: Nystatin POWDER 30 GM BOTTLE TP SCH ×2 (09:02→20:00)
[2020-06-16] MEDS: polyethylene glycoL 3350 17 GM POWD.PACK PO SCH ×2 (09:02→20:00)
[2020-06-16] MEDS: rOPINIRole 1 MG TABLET PO SCH ×3 (09:41→19:56)
[2020-06-16] MEDS ORDERED: Isovue-250 100 ML INFUS..BTL ONE (11:39)
[2020-06-16] MEDS ORDERED: Heparin 1,000 UNITS/500 mL 500 ML ONE (11:39)
[2020-06-16 13:02] LABS: Adenovirus Not Detected (Not Detect); Bordetella Pertussis Not Detected (Not Detect); Chlamydophila pneumoniae Not Detected (Not Detect); Coronavirus 229E Not Detected (Not Detect); Coronavirus HKU1 Not Detected (Not Detect); Coronavirus NL63 Not Detected (Not Detect); Coronavirus OC43 Not Detected (Not Detect); Human Metapneumovirus Not Detected (Not Detect); Human Rhinovirus/Enterovirus Not Detected (Not Detect); Influenza A Subtype 2009 H1 Not Detected (Not Detect); Influenza B Not Detected (Not Detect); Mycoplasma pneumoniae Not Detected (Not Detect); Parainfluenza Virus 1 Not Detected (Not Detect); Parainfluenza Virus 2 Not Detected (Not Detect); Parainfluenza Virus 3 Not Detected (Not Detect); Parainfluenza Virus 4 Not Detected (Not Detect); Respiratory Syncytial Virus Not Detected (Not Detect); SARS-CoV-2 Not Detected (Not Detect)
[2020-06-16] MEDS: Dexmedetomidine HCl 400 MCG/100 ML MLS IVC SCH (19:51)
[2020-06-16] MEDS: Gabapentin 400 MG CAPSULE PO SCH (20:00)
[2020-06-17] MEDS: Insulin LISPRO 300 UNITS/3 ML VIAL SUBQ SCH ×4 (00:05→12:22)
[2020-06-17] MEDS: Dexmedetomidine HCl 400 MCG/100 ML MLS IVC SCH (00:06)
[2020-06-17] MEDS: Ipratropium/Albuterol Neb 3 ML IH SCH ×4 (00:08→11:02)
[2020-06-17 04:19] LABS: Basophils # 0.1 K/mcL (0.0-0.2); Basophils % 0.7 %; Eosinophils # 0.1 K/mcL (0.0-0.6); Hematocrit 30.6 % (35.3-44.9); Hemoglobin 9.1 g/dL (11.5-15.4); Immature Granulocytes % 6.6 % (0-4); Lymphocytes # 0.8 K/mcL (0.6-4.6); Lymphocytes % 8.1 %; Mean Corpuscular HGB Conc 29.7 g/dL (31.6-35.5); Mean Corpuscular Hemoglobin 28.9 pg (28.0-33.3); Mean Corpuscular Volume 97.1 fL (83.0-100.0); Mean Platelet Volume 10.5 fL (9.4-12.4); Monocytes # 0.5 K/mcL (0.0-1.3); Monocytes % 5.1 %; Neutrophils # 7.7 K/mcL (1.6-8.9); Nucleated Red Blood Cells 0.3 /100 WBC (0); Platelet Count 322 K/mcL (140-400); Red Blood Count 3.15 M/mcL (3.82-4.97); Segmented Neutrophils % 78.5 %; White Blood Count 9.8 K/mcL (4.3-11.1)
[2020-06-17 04:20] LABS: VBG Ionized Calcium 1.32 mmol/L (1.15-1.35)
[2020-06-17] MEDS: Artificial Tears SOLN 15 ML BOTTLE BOTH EYES SCH ×3 (04:28→08:01)
[2020-06-17] MEDS: Norepinephrine 4 MG/254 ML IV.SOLN IVC SCH (04:31)
[2020-06-17 04:37] LABS: BUN/Creatinine Ratio 29 (6-26); Blood Urea Nitrogen 19 mg/dL (6-20); Calcium 9.4 mg/dL (8.6-10.3); Carbon Dioxide 26 mEq/L (23-29); Chloride 111 mEq/L (98-107); Glucose 108 mg/dL (70-105); Magnesium 1.6 mg/dL (1.6-2.6); Osmolality,Calculated 303 (280-300); Phosphorous 3.8 mg/dL (2.7-4.5); Potassium 2.9 mEq/L (3.5-5.1); Sodium 145 mEq/L (136-145); eGFR For African Americans > 60 (> 60); eGFR For Non-African Americans > 60 (> 60)
[2020-06-17 04:41] LABS: ABG Base Excess 0 mEq/L (-2 to 3); ABG HCO3 26 mEq/L (21-27); ABG Oxygen Saturation 94 % (95-98); ABG PCO2 48 mmHg (35-45); ABG PH 7.34 pH Units (7.32-7.45); ABG PO2 77 mmHg (85-104); ABG TCO2 27 mEq/L (20-26); Blood Gas Modality ASSIST CONTROL; Blood Gas VT 500 cc
[2020-06-17 04:55] LABS: Anisocytosis 1+ (Not Present); Polychromasia 1+ (Not Present)
[2020-06-17 04:56] LABS: Platelet Estimate Normal (Normal)
[2020-06-17] MEDS: Pantoprazole 40 MG VIAL IVP SCH (05:01)
[2020-06-17] MEDS: Potassium Chloride Elixir 20 MEQ/15 ML UDC PO PRN (05:01)
[2020-06-17] MEDS: FentaNYL (PF) 2,500 MCG/50 ML IV.SOLN IVC SCH (07:05)
[2020-06-17] MEDS: Piperacillin/Tazobactam 3.375 GM in 0.9 % Sodium Chloride Mini Bag 100 ML IVPB SCH (07:57)
[2020-06-17] MEDS: Hydrocortisone Sodium Succ 100 MG/2 ML VIAL IVP SCH (08:00)
[2020-06-17] MEDS: rOPINIRole 1 MG TABLET PO SCH (08:00)
[2020-06-17] MEDS: Furosemide 40 MG/4 ML VIAL IVP SCH (08:00)
[2020-06-17] MEDS: Chlorhexidine Rinse 15 ML MOUTHWASH MM SCH (08:00)
[2020-06-17] MEDS: polyethylene glycoL 3350 17 GM POWD.PACK PO SCH (08:01)
[2020-06-17] MEDS: Nystatin POWDER 30 GM BOTTLE TP SCH (08:02)
[2020-06-17] MEDS ORDERED: Ketoconazole 2% CRM 15 GM TUBE TP SCH (10:45)
[2020-06-17 12:06] LABS: Magnesium 1.6 mg/dL (1.6-2.6); Potassium 2.9 mEq/L (3.5-5.1)
[2020-06-17] MEDS: *HR* Midazolam HCl 2 MG/2 ML VIAL IVP PRN ×2 (12:24→13:42)
[2020-06-17 13:17] VITALS: BP 136/76
== END 2020-06-17 13:44 | disposition short-term general hospital (02) | DRG 870 ==
LOC: ICNU 04:10
PROVIDERS: ADMIT Internal Medicine; ATTEND Internal Medicine
PROC: ENDOCBX (2020-06-14 13:50)